=== PATIENT | male | born 1960 | race Caucasian/White ===

== ENCOUNTER → 2018-05-11 | Outpatient (CLI) | payer OTHER | LOC: COL.RAD 14:27 | DX: I73.9 Peripheral vascular disease, unspecified (principal); S62.632G Displaced fracture of distal phalanx of right middle finger, subsequent encounter for fracture with delayed healing ==

== ENCOUNTER 2018-08-23 09:45 | Outpatient (RCR) | payer OTHER | END 2018-10-24 10:28 | disposition home or self-care (01) | LOC: WSOT 09:45 | DX: Z47.89 Encounter for other orthopedic aftercare (principal); Z98.890 Other specified postprocedural states ==

== ENCOUNTER 2019-02-01 08:30 | Outpatient (RCR) | payer OTHER | END 2019-02-03 | disposition home or self-care (01) | LOC: WSOT | DX: Z09 Encounter for follow-up examination after completed treatment for conditions other than malignant neoplasm (principal); M79.644 Pain in right finger(s); Z98.890 Other specified postprocedural states ==

== ENCOUNTER 2019-04-04 00:16 | Inpatient (IN) | payer OTHER ==
[~2019-04-04] VITALS: Ht 182.9 cm; Wt 95.9 kg
[2019-04-04] VITALS (928 sets, daily range): BP systolic 99–195; BP diastolic 48–95; PULSE 86–120; TEMP 98.5–102.9; O2SAT 84–100
[2019-04-04] MEDS ORDERED: TRESIBA FL100 UNIT/1 SQ (00:45)
[2019-04-04] MEDS ORDERED: PRINIVIL10 MG PO (00:53)
[2019-04-04] MEDS ORDERED: LIPITOR 40MG TA40 MG (00:54)
[2019-04-04 01:07] LABS: HEMOGLOBIN 12.2 g/dl (13.5-18.0); MEAN CELL VOLUME 86 fl (80.0-100.0); MEAN CORPUSCULAR HEMOGLOBIN 30 pg (27.0-31.0); MEAN CORPUSCULAR HGB CONC 35 g/dl (33.0-37.0); MEAN PLATELET VOLUME 9.1 fl (7.4-10.4); PLATELET COUNT 348 K/mm3 (130-400); REDCELL DISTRIBUTION WIDTH-CV 12.9 % (11.5-14.5)
[2019-04-04 01:08] LABS: HEMATOCRIT 35.3 % (42.0-52.0)
[2019-04-04 01:15] LABS: COLLECTION METHOD CLEAN CATCH
[2019-04-04 01:16] LABS: PROTHROMBIN TIME 11.6 SECONDS (9.7-12.8)
[2019-04-04 01:21] LABS: ACETONE,SERUM MODERATE; ALANINE AMINOTRANSFERASE 22 U/L (21-72); ALKALINE PHOSPHATASE 244 U/L (50-136); ANION GAP 19 mmol/L (7-16); AST,SGOT 34 U/L (15-37); BILIRUBIN,TOTAL 0.6 mg/dL (0.0-1.0); BLOOD UREA NITROGEN 43 mg/dL (9-20); CALCIUM 8.6 mg/dL (8.4-10.2); CARBON DIOXIDE 16 mmol/L (22-30); CREATININE, serum 1.37 (0.66-1.25); LIPASE 28 U/L (23-300); POTASSIUM 4.9 mmol/L (3.4-5.0); SODIUM 123 mmol/L (137-145); TOTAL PROTEIN 6.5 gm/dL (6.4-8.2)
[2019-04-04 01:23] LABS: MUCOUS Present /lpf; PH 5 (5-8); SQUAMOUS EPITHELIAL None Seen /hpf; URINE APPEARANCE Hazy; URINE BACTERIA None Seen /hpf; URINE BILIRUBIN Negative (NEGATIVE); URINE BLOOD 2+ (NEGATIVE); URINE COLOR Yellow; URINE GLUCOSE 3+ (NEGATIVE); URINE KETONE 2+ (NEGATIVE); URINE LEUKOCYTE ESTERASE Negative (NEGATIVE); URINE NITRATE Negative (NEGATIVE); URINE PROTEIN(semi-quant) 1+ (NEGATIVE); URINE UROBILINOGEN Negative (NEGATIVE)
[2019-04-04 01:28] LABS: ARTERIAL BLD GAS TCO2 CT 15.9; ARTERIAL BLOOD GAS HCO3 15.2 meq/L (22-26); ARTERIAL BLOOD GAS PCO2 25.4 mmHg (35-45); ARTERIAL BLOOD GAS PO2 57.6 mmHg (80-100); ARTERIAL BLOOD GAS pH 7.39 (7.35-7.45)
[2019-04-04 01:32] LABS: CHLORIDE 88 mmol/L (98-107); GLUCOSE 524 mg/dL (74-106); TROPONIN-I < 0.012 ng/mL (0.000-0.035)
[2019-04-04 01:57] LABS: BAND 25 % (0-10); LYMPHOCYTE 4 % (20.0-51.0); METAMYELOCYTE 4 % (0-0); NEUTROPHILS 63 % (42.0-75.2)
[2019-04-04 01:58] LABS: PLATELET ESTIMATE NORMAL (NORMAL)
[2019-04-04 02:52] LABS: C-REACTIVE PROTEIN 48.7 mg/dL (0.0-0.9)
--- NOTE | 2019-04-04 03:20 | NUR ---
Patient arrived on unit via ER bed, transported to unit bed with help of this RN plus 3 other RN's. Patient accompanied by 2 family members. Patient attached to CRM monitor, IV rates checked with ER nurse.
[2019-04-04 03:43] LABS: MAGNESIUM 2.4 mg/dL (1.6-2.3)
[2019-04-04 03:48] LABS: ACETAMINOPHEN < 10 ug/mL (10-30); SALICYLATE < 1.0 mg/dL
--- NOTE | 2019-04-04 08:20 | NUR ---
Report received from Dalila KHAN and care resumed. Pt resting upon assessment. Linens were wet from urine, pt cleaned up and linens changed. IV insulin remains infusing, see IV flowsheet. Family at bedside and update on pt condition. No concerns at this time, will continue to follow.
[2019-04-04 08:22] LABS: CREATININE, serum 1.04 (0.66-1.25); POTASSIUM 4.1 mmol/L (3.4-5.0)
--- NOTE | 2019-04-04 08:32 | NUR ---
Vancomycin Initial Dosing Pharmacy Note Ordering provider: Sajan Hall MD Indication/duration: CELLULITIS Relevant comorbidities: DKA/UNCONTROLLED DM LABS: SCR 1.04/WBC19.8/LA 2.6 Recommendation: 1.5GM Q12H Loading dose: 1.5 grams Maintenance dose: 1.5 grams every 12 hours Trough goal: 10-15 ug/mL
--- NOTE | 2019-04-04 10:30 | NUR ---
Dr Hall in to see pt at this time.
--- NOTE | 2019-04-04 11:13 | NUR ---
VANESSA brooks attended clinical rounds with the team. Ortho consulted and speech ordered. After rounds VANESSA brooks met with the patient and his daugther and granddaughter. The patient lives in [place] with his son Zion. The patient does not have DME and reports independenc with ADLs. The patient's PCP is Dr. Herrera and patient receives medications from [facility] pharmacy. The patient reports he get his insulin for free from Dr. Herrera. The patient does not have advanced directives in the EMR but was interested in a DPOA-HC form. VANESSA brooks and director case witnessed. The patient designated his daugther, Jennifer and son his Zion. hr shared services consultant will continue to follow.
--- NOTE | 2019-04-04 11:58 | NUR ---
Ortho in to see pt at this time.
--- NOTE | 2019-04-04 12:33 | NUR ---
INSULIN DC'D PER ORDERS
--- NOTE | 2019-04-04 13:10 | NUR ---
Dr Hall was notified on increased temp. States will place pt on sepsis protocol and order PICC line. AIVS called. Ortho also called nurse stating pt would need to go to OR for right middle finger amputation. Consent to be obtained. Will update pt and family.
[2019-04-04 14:10] LABS: ARTERIAL BLD GAS O2 SATURATION 86.1 % (92-100); ARTERIAL BLD GAS TCO2 CT 21.8; ARTERIAL BLOOD GAS BASE EXCESS -1.6 (-2-2); ARTERIAL BLOOD GAS HCO3 20.9 meq/L (22-26); ARTERIAL BLOOD GAS PCO2 28.8 mmHg (35-45); ARTERIAL BLOOD GAS pH 7.48 (7.35-7.45)
--- NOTE | 2019-04-04 14:10 | NUR ---
Dr Anderson in to see pt at this time.
[2019-04-04 14:11] LABS: ARTERIAL BLOOD GAS PO2 45.8 mmHg (80-100)
[2019-04-04 14:22] LABS: SALICYLATE < 1.0 mg/dL
[2019-04-04 14:23] LABS: INR 1.1 (0.8-3.0); PROTHROMBIN TIME 12.4 SECONDS (9.7-12.8)
[2019-04-04 14:37] LABS: TROPONIN-I 0.116 ng/mL (0.000-0.035)
--- NOTE | 2019-04-04 14:37 | NUR ---
Pt to OR at this time.
--- NOTE | 2019-04-04 15:56 | NUR ---
Pt returned from OR on vent. All vent/restraint orders had been dc'd by ortho. Page placed to ortho for order clarification. Will continue to follow.
--- NOTE | 2019-04-04 16:10 | NUR ---
Patient is intubated, sedated, and has OG tube in place.
--- NOTE | 2019-04-04 16:45 | NUR ---
OG TUBE IN PLACE TO LOW INTERMITTENT SUCTION.
--- NOTE | 2019-04-04 17:00 | NUR ---
No sedation vacation, patient newly intubated this afternoon.
--- NOTE | 2019-04-04 17:30 | NUR ---
Report given to BILL Cisneros.
--- NOTE | 2019-04-04 17:40 | NUR ---
At bedside with off-going nurse. Pumps and tubing and drips verified with nurse. VS stable; will continue to monitor.
--- NOTE | 2019-04-04 20:59 | NUR ---
Updated family via telephone. All questions and concerns addressed.
--- NOTE | 2019-04-04 22:01 | NUR ---
Notified [facility] about positive blood cultures; currenlty on Vancomycin and zosyn.
[2019-04-05] VITALS (1169 sets, daily range): BP systolic 92–127; BP diastolic 52–77; PULSE 85–98; TEMP 98.5–99.2; O2SAT 89–100
[2019-04-05 00:23] LABS: ARTERIAL BLD GAS O2 SATURATION 95.7 % (92-100); ARTERIAL BLD GAS TCO2 CT 20.1; ARTERIAL BLOOD GAS BASE EXCESS -4.2 (-2-2); ARTERIAL BLOOD GAS HCO3 19.2 meq/L (22-26); ARTERIAL BLOOD GAS PCO2 29.7 mmHg (35-45); ARTERIAL BLOOD GAS PO2 75.3 mmHg (80-100); ARTERIAL BLOOD GAS pH 7.43 (7.35-7.45)
--- NOTE | 2019-04-05 02:32 | NUR ---
Tolerating ventilator well; opened eyes slightly on command but not following other commands at this time. Also responds to painful stimuli and suctioning. Will continue to monitor.
[2019-04-05 05:51] LABS: MEAN CELL VOLUME 90 fl (80.0-100.0); MEAN CORPUSCULAR HGB CONC 33 g/dl (33.0-37.0); MEAN PLATELET VOLUME 9.2 fl (7.4-10.4); PLATELET COUNT 258 K/mm3 (130-400); RED BLOOD COUNT 3.34 M/mm3 (4.20-5.60); REDCELL DISTRIBUTION WIDTH-CV 13.7 % (11.5-14.5)
[2019-04-05 05:55] LABS: ARTERIAL BLD GAS O2 SATURATION 92.5 % (92-100); ARTERIAL BLD GAS TCO2 CT 19.1; ARTERIAL BLOOD GAS HCO3 18.3 meq/L (22-26); ARTERIAL BLOOD GAS PO2 59.9 mmHg (80-100); ARTERIAL BLOOD GAS pH 7.43 (7.35-7.45)
--- NOTE | 2019-04-05 05:56 | NUR ---
Received phone call from Dr. Ferrer reporting on results of chest CT; postitive for left upper lobe PE. Will notify [facility].
[2019-04-05 05:59] LABS: HEMATOCRIT 29.9 % (42.0-52.0); HEMOGLOBIN 9.9 g/dl (13.5-18.0); MEAN CORPUSCULAR HEMOGLOBIN 30 pg (27.0-31.0)
[2019-04-05 06:01] LABS: ALBUMIN 2.2 gm/dL (3.5-5.0); BILIRUBIN,TOTAL 0.5 mg/dL (0.0-1.0); CALCIUM 7.4 mg/dL (8.4-10.2); CREATININE, serum 1.21 (0.66-1.25); MAGNESIUM 2.4 mg/dL (1.6-2.3); POTASSIUM 3.8 mmol/L (3.4-5.0); TOTAL PROTEIN 5.5 gm/dL (6.4-8.2)
--- NOTE | 2019-04-05 06:05 | NUR ---
Updated Dr. Mendes via telephone; awaiting further orders.
[2019-04-05 06:15] LABS: INR 1.1 (0.8-3.0); PROTHROMBIN TIME 12.4 SECONDS (9.7-12.8)
[2019-04-05 06:20] LABS: TROPONIN-I 0.14 ng/mL (0.000-0.035)
[2019-04-05 06:25] LABS: BAND 35 % (0-10); LYMPHOCYTE 8 % (20.0-51.0); METAMYELOCYTE 3 % (0-0); NEUTROPHILS 51 % (42.0-75.2); PLATELET ESTIMATE NORMAL (NORMAL)
--- NOTE | 2019-04-05 07:00 | NUR ---
BEDSIDE REPORT RECEIVED FROM BILL ARZATE. PATIENT SEDATED BUT WAKES EASILY. ALL LINES, GTTS, TUBES AND VENT SETTINGS REVIEWED TOGETHER. WILL CONTINUE TO MONITOR.
[2019-04-05 07:52] LABS: GASTROCCULT POSITIVE
[2019-04-05 07:53] LABS: pH GASTRIC CONTENTS 4
[2019-04-05 09:15] LABS: HEMATOCRIT 26.2 % (42.0-52.0); HEMOGLOBIN 8.8 g/dl (13.5-18.0)
[2019-04-05 10:42] LABS: TROPONIN-I 0.105 ng/mL (0.000-0.035)
[2019-04-05 11:40] LABS: ARTERIAL BLD GAS TCO2 CT 20.8; ARTERIAL BLOOD GAS BASE EXCESS -3.7 (-2-2); ARTERIAL BLOOD GAS HCO3 19.9 meq/L (22-26); ARTERIAL BLOOD GAS PCO2 30.4 mmHg (35-45); ARTERIAL BLOOD GAS PO2 84.7 mmHg (80-100); ARTERIAL BLOOD GAS pH 7.43 (7.35-7.45)
--- NOTE | 2019-04-05 13:32 | NUR ---
DR. HOLT HERE TO SEE PATIENT AND PERFORM EGD AT BEDSIDE. PHONE CONSENT OBTAINED FROM SON, LUIS.
--- NOTE | 2019-04-05 16:25 | NUR ---
WE RETURN FROM [facility] STRESS TEST AT THIS TIME. PATIENT TOLERATED WELL. SON, LUIS UPDATED. QUESTIONS ANSWERED TO THE BEST OF MY ABILITY. WILL CONTINUE TO MONITOR.
--- NOTE | 2019-04-05 16:27 | NUR ---
1500 PT TRANSPORTED TO [facility] SCAN ON VENT WITHOUT INCIDENT. AT THIS TIME PT RETURNED BACK TO ICU ON VENT WITHOUT INCIDENT.
[2019-04-05 17:04] LABS: PARTIAL THROMBOPLASTIN TIME 26.8 SECONDS (26.0-37.0)
--- NOTE | 2019-04-05 19:00 | NUR ---
BEDSIDE REPORT GIVEN TO BILL AREVALO. PATIENT CURRENTLY SEDATED AND VENTILATED. ALL LINES, GTTS, TUBES AND VENT SETTINGS REVIEWED. PATIENT TURNED TO RIGHT SIDE. CARE TURNED OVER AT THIS TIME.
--- NOTE | 2019-04-05 23:40 | NUR ---
PER MAR PT IS TO HAVE LR HUNG NEXT BUT THERE IS CURRENTLY LR HANGING. WILL HANG NS NOW AND CONTINUE TO ALTERNATE LR AND NS
[2019-04-06] VITALS (1023 sets, daily range): BP systolic 115–170; BP diastolic 49–85; PULSE 84–107; TEMP 97.3–99.3; O2SAT 82–100
--- NOTE | 2019-04-06 05:11 | NUR ---
PT IS ALERT AND FOLLING COMMANDS. PT ASKING WHAT THE DATES IS. PT ATTEMPTING TO JOKE WITH NURSES AND THUMB WRESTLE. PT DENIES PAIN AND STATES HE IS COMFORTABLE. WILL LEAVE SEDATION AT NEW RATES UNLESS PT BECOMES RESTLESS OR COMPLAINS OF PAIN.
[2019-04-06 05:12] LABS: ARTERIAL BLD GAS O2 SATURATION 97.4 % (92-100); ARTERIAL BLD GAS TCO2 CT 22.1; ARTERIAL BLOOD GAS BASE EXCESS -2.6 (-2-2); ARTERIAL BLOOD GAS HCO3 21.1 meq/L (22-26); ARTERIAL BLOOD GAS PCO2 32.3 mmHg (35-45); ARTERIAL BLOOD GAS PO2 92.5 mmHg (80-100); ARTERIAL BLOOD GAS pH 7.43 (7.35-7.45)
--- NOTE | 2019-04-06 05:55 | NUR ---
WEANING TRIAL IS BEING DONE. PT IS ON SPONTANOUS MODE DOING WELL WITH NO DISTRESS NOTED.
[2019-04-06 06:33] LABS: BASO # 0.1 (0.0-0.2); BASO % 0.3 % (0.0-2.0); EOS % 0.1 % (0-4.0); GRAN # 14.9 (1.4-6.5); GRAN % 86.4 % (42.2-75.2); LYMPH # 0.7 (1.2-3.4); LYMPH % 4.3 % (20.0-51.0); MEAN CELL VOLUME 91 fl (80.0-100.0); MEAN CORPUSCULAR HGB CONC 32 g/dl (33.0-37.0); MEAN PLATELET VOLUME 9.3 fl (7.4-10.4); MONO # 1.2 (0.1-0.6); PLATELET COUNT 272 K/mm3 (130-400); RED BLOOD COUNT 3.24 M/mm3 (4.20-5.60); REDCELL DISTRIBUTION WIDTH-CV 14.2 % (11.5-14.5)
[2019-04-06 06:41] LABS: HEMATOCRIT 29.5 % (42.0-52.0); HEMOGLOBIN 9.3 g/dl (13.5-18.0); MEAN CORPUSCULAR HEMOGLOBIN 29 pg (27.0-31.0)
[2019-04-06 06:45] LABS: PROTHROMBIN TIME 12.1 SECONDS (9.7-12.8)
[2019-04-06 06:47] LABS: ALBUMIN 2.4 gm/dL (3.5-5.0); BILIRUBIN,TOTAL 0.7 mg/dL (0.0-1.0); CALCIUM 7.3 mg/dL (8.4-10.2); CREATININE, serum 1.18 (0.66-1.25); POTASSIUM 3.6 mmol/L (3.4-5.0)
--- NOTE | 2019-04-06 12:28 | NUR ---
Vancomycin Follow-up Pharmacy Note Current regimen: vancomycin 1500 q12H Vancomycin trough: 22.1 Adjustments: reduce to vancomycin 1250 q12H. Trough 04/08/19 @ 0030.
[2019-04-06 12:34] LABS: ARTERIAL BLD GAS O2 SATURATION 98.2 % (92-100); ARTERIAL BLD GAS TCO2 CT 22.5; ARTERIAL BLOOD GAS BASE EXCESS -2.3 (-2-2); ARTERIAL BLOOD GAS HCO3 21.5 meq/L (22-26); ARTERIAL BLOOD GAS PCO2 33.2 mmHg (35-45); ARTERIAL BLOOD GAS PO2 114.7 mmHg (80-100); ARTERIAL BLOOD GAS pH 7.43 (7.35-7.45)
--- NOTE | 2019-04-06 16:35 | NUR ---
PT EXTUBATED AT [address] MARTÍNEZ ORDER. PT SUCTIONED ORALLY AND VIA ETT PRIOR TO EXTUBATION. PT PLACED ON 5L OXYMASK AND SUCTIONED ORALLY POST EXTUBATION. PT BLBS CLEAR AND EQUAL. NO STRIDOR. PT IS ABLE TO SPEAK. VSS. HR 99, RR 18, SPO2 97%. PT CONTINUES TO DO WELL.
[2019-04-07] VITALS (574 sets, daily range): BP systolic 108–160; BP diastolic 66–91; PULSE 88–112; TEMP 98.1–100.1; O2SAT 85–99
--- NOTE | 2019-04-07 01:18 | NUR ---
Pt sleeping and scrunched down in bed. O2 sats showing 88% on 5L NC. Pt repositioned and boosted. No changed to breath sounds from previous assessment. Oxygen turned up to 6L. RT called for scheduled neb. Rt changed Pt over to high flow NC with humidity. Pt now sleeping and sating 94%. Will contiue to monitor.
[2019-04-07 06:24] LABS: MEAN CELL VOLUME 92 fl (80.0-100.0); MEAN CORPUSCULAR HGB CONC 32 g/dl (33.0-37.0); MEAN PLATELET VOLUME 9.5 fl (7.4-10.4); PLATELET COUNT 313 K/mm3 (130-400); RED BLOOD COUNT 3.28 M/mm3 (4.20-5.60); REDCELL DISTRIBUTION WIDTH-CV 14.1 % (11.5-14.5)
[2019-04-07 06:29] LABS: HEMATOCRIT 30.1 % (42.0-52.0); HEMOGLOBIN 9.5 g/dl (13.5-18.0); INR 1.1 (0.8-3.0); MEAN CORPUSCULAR HEMOGLOBIN 29 pg (27.0-31.0)
[2019-04-07 06:38] LABS: ALBUMIN 2.3 gm/dL (3.5-5.0); CALCIUM 7.1 mg/dL (8.4-10.2); CREATININE, serum 1.1 (0.66-1.25); POTASSIUM 3.9 mmol/L (3.4-5.0); TOTAL PROTEIN 6.1 gm/dL (6.4-8.2)
--- NOTE | 2019-04-07 16:55 | NUR ---
patient to room 351 Asa RN recieves report
--- NOTE | 2019-04-07 17:48 | NUR ---
Reyes catheter removed per order, catheter intact upon removal, Pt tolerated procedure well.
--- NOTE | 2019-04-07 19:12 | NUR ---
Pt up to floor this afternoon from ICU, med rec completed, heparin drip rate upon arriving was set to 19 ml/hr, MAR indicated and report received rate was set at 18 ml/hr, rate was reset to the rate indicated on AUG.
--- NOTE | 2019-04-07 19:25 | NUR ---
Report given to BILL Pereyra.
[2019-04-08 06:08] VITALS: BP 149/60; PULSE 91; TEMP 99.4
--- NOTE | 2019-04-08 07:00 | NUR ---
Received report from BILL Bray. Pt is currently receiving a breathing treatment from RT. Tele called to inform this RN pt had a run of Afib w/ RVR. Rt immediately did an EKG which shows NSR. Contacted Dr. Villarreal. Dr. Villarreal changed his breathing treatment from Albuterol to Xopenem. Pt had no more Afib through the night. Pt's R leg becoming increasingly hard to move. Pt is having shooting pains down the leg to his foot. Pt had 1 bout of bladder incontinence, changed bed and gown. Pt encouraged to call for help to use his urinal. Discussed replacing hamlin due to inability to move with Dior telephone clerks supervisor, will pass on information to Daytime nurse to discuss during rounds. Report given to BILL Harrell.
--- NOTE | 2019-04-08 07:33 | NUR ---
report from Hafsa KHAN.
[2019-04-08 07:45] VITALS: BP 145/63; PULSE 89; TEMP 98.8
[2019-04-08 08:07] LABS: MEAN CELL VOLUME 92 fl (80.0-100.0); MEAN CORPUSCULAR HGB CONC 31 g/dl (33.0-37.0); MEAN PLATELET VOLUME 9.5 fl (7.4-10.4); RED BLOOD COUNT 3.14 M/mm3 (4.20-5.60); REDCELL DISTRIBUTION WIDTH-CV 13.8 % (11.5-14.5)
[2019-04-08 08:17] LABS: HEMOGLOBIN 9.1 g/dl (13.5-18.0); MEAN CORPUSCULAR HEMOGLOBIN 29 pg (27.0-31.0); PLATELET COUNT 430 K/mm3 (130-400)
[2019-04-08 08:18] LABS: ALBUMIN 2.3 gm/dL (3.5-5.0); BILIRUBIN,TOTAL 0.8 mg/dL (0.0-1.0); CALCIUM 6.9 mg/dL (8.4-10.2); CREATININE, serum 1.13 (0.66-1.25); TOTAL PROTEIN 6.1 gm/dL (6.4-8.2)
[2019-04-08 08:30] LABS: BAND 9 % (0-10); EOSINOPHIL 2 % (0-4); LYMPHOCYTE 18 % (20.0-51.0); METAMYELOCYTE 1 % (0-0); NEUTROPHILS 69 % (42.0-75.2); PLATELET ESTIMATE NORMAL (NORMAL)
--- NOTE | 2019-04-08 09:50 | NUR ---
PT WAS BROUGHT DOWN TO [facility] ROOM 15 IN HIS BED. CHART WAS LEFT UPSTAIRS ON MEDICAL. VERBALLY MR FREGOSO WAS ASKED WHAT PROCEDURE HE WAS GOING TO HAVE, HE STATES HE WAS HAVING A LIANA. PT WAS ASKED BY MYSELF IF HE WANTED TO GO THROUGH THE PROCEDURE AND PT STATES YES. PRESENT WAS DR COONEY, LILLIAN MAXWELL, SOL RODRIGUEZ, ROWENA PELLETIER AND MYSELF. WE CONTINUED WITH THE PROCEDURE. WHEN THE CHART ARRIVED A FEW MINUTES LATER.
--- NOTE | 2019-04-08 10:45 | NUR ---
PT RETURNED FROM [facility]. REPORT FROM JUNIOR KHAN.
--- NOTE | 2019-04-08 11:22 | NUR ---
PT IN BED VISITING WITH FAMILY CORRECTED HEP XA RESULTS @ .36 WITH NO CHANGE NEEDED. RESULTS OF LIANA NEGATIVE BY REPORT FROM JUNIOR KHAN CATHLAB.
[2019-04-08 12:11] VITALS: BP 167/71; PULSE 100; TEMP 98
--- NOTE | 2019-04-08 13:39 | NUR ---
DANISH met with the patient and the patient's son, Zion, to review discharge plan. The patient reports that he still plans to return home with Zion upon discharge. The patient is requiring six liters of oxygen. DANISH to continue to monitor. The patient was also interested in obtaining a form for DPOA-HC and for it to be notarized. DANISH provided him with a DPOA-HC form and notified the Zeinab guardado. DANISH to continue to follow.
[2019-04-08 16:17] VITALS: BP 157/64; PULSE 98
[2019-04-08 20:00] VITALS: BP 141/61; PULSE 95; TEMP 95.4
--- NOTE | 2019-04-08 20:40 | NUR ---
Shift assessment complete. Pt resting in bed, awake, a&o, cooperative c cares. Pt continued c/o pain to RLE et R hand, PRN pain medical education specialist. Pt denies any other c/o. PICC noted to R upper arm, patent c good blood return. Pt denies further needs at this time. Call light in reach, bed alarm on. Will continue to monitor.
[2019-04-09] VITALS: BP 145/64; PULSE 102; TEMP 98.3
[2019-04-09 06:41] LABS: MEAN CELL VOLUME 91 fl (80.0-100.0); MEAN CORPUSCULAR HGB CONC 32 g/dl (33.0-37.0); MEAN PLATELET VOLUME 9.5 fl (7.4-10.4); PLATELET COUNT 479 K/mm3 (130-400); RED BLOOD COUNT 3.01 M/mm3 (4.20-5.60); REDCELL DISTRIBUTION WIDTH-CV 13.6 % (11.5-14.5)
[2019-04-09 06:52] LABS: INR 1.1 (0.8-3.0); PROTHROMBIN TIME 12.8 SECONDS (9.7-12.8)
--- NOTE | 2019-04-09 06:57 | NUR ---
awake resting in bed, bedside shift report received from BILL Aranda
[2019-04-09 06:59] LABS: HEMATOCRIT 27.5 % (42.0-52.0); HEMOGLOBIN 8.8 g/dl (13.5-18.0); MEAN CORPUSCULAR HEMOGLOBIN 29 pg (27.0-31.0)
[2019-04-09 07:07] LABS: CREATININE, serum 1.18 (0.66-1.25); POTASSIUM 4.4 mmol/L (3.4-5.0)
--- NOTE | 2019-04-09 08:00 | NUR ---
physical therapy in to work with patient, with 2 assist he was assited out of bed and up to bedside commode, had large bowel movement, was unable to stand to get back to bed and sit to stand lift used to get him back to bed, full assessment comopleted, see interventions for further info, left foot is red and swollen, patient states this is normal but will inform the DR, c/o pain wiht movement and will medicate with time appropriate, ice to right knee, dressing to right hand CD&I,
[2019-04-09 08:13] VITALS: BP 158/68; PULSE 84; TEMP 98.4
--- NOTE | 2019-04-09 08:40 | NUR ---
sitting up in bed eating breakfast, speech therapy in with patient
--- NOTE | 2019-04-09 09:56 | NUR ---
appears to be dozing, states relief from pain meds given earlier
--- NOTE | 2019-04-09 10:50 | NUR ---
awake and visiting with family, denies needs
[2019-04-09 12:30] VITALS: BP 156/73; PULSE 89; TEMP 98.4
--- NOTE | 2019-04-09 13:00 | NUR ---
resting quietly when nurse entered room, c/o pain to right knee and medicated with hydrocodone 7.5mg 2 tabs
--- NOTE | 2019-04-09 13:53 | NUR ---
DANISH met with the patient and the patient's son, Zion, to review discharge plan and to discuss PT's assessment of a 2 assist for transfer and needing post-acute rehab. The patient and his son were in agreeance to needing post-acute rehab. DANISH presented and explained the Patient Choice Form to the patient. The patient chose 1) [facility] 2) [facility]. Patient Choice Form signed by the patient and he was provided a copy. DANISH consulted IPR Director, Yessenia. DANISH attempted to contact Morenita at [facility]. DANISH left a voicemail and faxed over the referral. SW awaiting their screens.
--- NOTE | 2019-04-09 14:18 | NUR ---
Dr Banks and care team in to see patient
--- NOTE | 2019-04-09 15:54 | NUR ---
appears to be sleeping, eyes closed, resp quiet and easy,
[2019-04-09 17:00] VITALS: BP 157/65; PULSE 87; TEMP 99.2
--- NOTE | 2019-04-09 18:47 | NUR ---
bedside shift report given to BILL Aranda
--- NOTE | 2019-04-09 20:20 | NUR ---
Shift assessment complete. Pt resting in bed, awake, a&o, cooperative c cares. Pt reports continued pain to R hand et RLE, rated "8/10"; provided c PRN pain med. Pt denies any other c/o. PICC noted to R upper arm, patent c good blood return. R hand, finger amputation wrapped per ortho, dressing C/D/I, no complication to site. O2 per NC. Tele in place. Pt denies further needs. Call light in reach, bed alarm on. Will continue to monitor.
[2019-04-09 20:21] VITALS: BP 155/66; PULSE 101; TEMP 98.7
[2019-04-09 23:50] VITALS: BP 158/75; PULSE 82; TEMP 98.6
[2019-04-10 06:24] LABS: MEAN CELL VOLUME 92 fl (80.0-100.0); MEAN CORPUSCULAR HGB CONC 32 g/dl (33.0-37.0); MEAN PLATELET VOLUME 9.3 fl (7.4-10.4); PLATELET COUNT 563 K/mm3 (130-400); RED BLOOD COUNT 2.96 M/mm3 (4.20-5.60); REDCELL DISTRIBUTION WIDTH-CV 13.3 % (11.5-14.5)
[2019-04-10 06:30] LABS: HEMATOCRIT 27.2 % (42.0-52.0); HEMOGLOBIN 8.6 g/dl (13.5-18.0); MEAN CORPUSCULAR HEMOGLOBIN 29 pg (27.0-31.0)
[2019-04-10 06:40] LABS: CALCIUM 7.2 mg/dL (8.4-10.2); CREATININE, serum 1.06 (0.66-1.25); POTASSIUM 4.1 mmol/L (3.4-5.0)
[2019-04-10 07:03] LABS: BAND 16 % (0-10); EOSINOPHIL 3 % (0-4); LYMPHOCYTE 4 % (20.0-51.0); NEUTROPHILS 76 % (42.0-75.2); PLATELET ESTIMATE INCREASED (NORMAL)
[2019-04-10 07:08] VITALS: BP 184/78; PULSE 84; TEMP 98
[2019-04-10 07:10] VITALS: BP 184/78; PULSE 84; TEMP 98
--- NOTE | 2019-04-10 07:32 | NUR ---
HepXa level was 0.35 this morning/ No rate change made, continue TRA 19ml/hr, recheck next level 04/11/19
[2019-04-10 07:37] LABS: INR 1.1 (0.8-3.0); PROTHROMBIN TIME 12.9 SECONDS (9.7-12.8)
--- NOTE | 2019-04-10 11:00 | NUR ---
PICC intact right upper arm. With sterile technique right upper arm PICC dressing change done with insertion site cleansed with ChloraPrep 1, chlorhexidine impregnated disc applied, skin prep, StatLock, and Tegaderm applied. No signs or symptoms of IV complications noted. No concerns voiced. Wrapped with Reynold to protect catheter.
[2019-04-10 11:01] VITALS: BP 163/67; PULSE 88; TEMP 98.8
--- NOTE | 2019-04-10 11:21 | NUR ---
Assessment completed, alert/oriented, vital signs stabl/ HTN, reports some rib pain from coughing/ reports [place] has helped ease the discomfort, lungs are coarse in bases but good air movment overall, heart RRR/distal pulses are weak but palpable, heparin gtt continues at 19ml/hr following protocol, patient is very weak getting up and needing use of sit to aixa lift/ PT ordered for eval and tx, repeat BC came back + for staph again/ hospitalist notified
[2019-04-10 16:14] VITALS: BP 184/72; PULSE 111; TEMP 99.7
[2019-04-10 19:56] VITALS: BP 157/67; PULSE 99; TEMP 97.8
--- NOTE | 2019-04-10 21:20 | NUR ---
Patient assessed at this time. Alert and oriented x 4, and able to make needs known. Reported level 8 pain to right knee. Given PRN [place] as requested for pain, and given PRN Benadryl as requested to help him sleep. Double lumen PICC to Andre. Dressing to area is CDI. On oxygen at 6 L/min via oxymask. Denies having SOB and dyspnea. Does report occasional cough with sputum production. LS crackles throughout. Respirations even and unlabored. Telemetry in place. HRR. Normal sinus. Capillary refill less than 3 seconds. Non-tenting skin turgor. BSAx4. Abdomen soft and nontender. Dressing to right hand CDI. Dressing per ortho, who was in to see patient tonight. 2+ edema to BLE. Left foot is red and warm to touch. Voices no questions, needs, or concerns at this time. Resting in bed with call light within reach.
[2019-04-10 23:35] VITALS: BP 144/77; PULSE 94; TEMP 98.4
[2019-04-11 03:55] VITALS: BP 156/84; PULSE 65
[2019-04-11 06:01] LABS: BASO % 0.3 % (0.0-2.0); EOS # 0.1 (0.0-0.7); EOS % 0.8 % (0-4.0); GRAN # 12.5 (1.4-6.5); GRAN % 79.6 % (42.2-75.2); LYMPH # 1.6 (1.2-3.4); LYMPH % 10.4 % (20.0-51.0); MEAN CELL VOLUME 92 fl (80.0-100.0); MEAN CORPUSCULAR HGB CONC 31 g/dl (33.0-37.0); MEAN PLATELET VOLUME 8.9 fl (7.4-10.4); MONO # 1.2 (0.1-0.6); MONO % 7.6 % (1.7-9.3); RED BLOOD COUNT 3.03 M/mm3 (4.20-5.60); REDCELL DISTRIBUTION WIDTH-CV 13.3 % (11.5-14.5)
--- NOTE | 2019-04-11 06:01 | NUR ---
Patient has had no furhter complaints of pain or discomfort this shift. Dressing to right hand CDI. Continues to wear oxygen at 6 L/min via mask. Denies having SOB and dyspnea. Voices no questions, needs, or concerns at this time. Resting in bed with call light within reach.
[2019-04-11 06:04] LABS: HEMATOCRIT 27.8 % (42.0-52.0); HEMOGLOBIN 8.7 g/dl (13.5-18.0); MEAN CORPUSCULAR HEMOGLOBIN 29 pg (27.0-31.0)
[2019-04-11 06:05] LABS: PLATELET COUNT 676 K/mm3 (130-400)
[2019-04-11 06:07] LABS: INR 1.5 (0.8-3.0); PROTHROMBIN TIME 17.5 SECONDS (9.7-12.8)
[2019-04-11 06:11] LABS: CALCIUM 7.7 mg/dL (8.4-10.2); CREATININE, serum 0.99 (0.66-1.25); MAGNESIUM 1.9 mg/dL (1.6-2.3)
[2019-04-11 07:43] VITALS: BP 166/97; PULSE 91; TEMP 98.4
[2019-04-11 11:56] VITALS: BP 166/74; PULSE 89; TEMP 98.3
--- NOTE | 2019-04-11 12:01 | NUR ---
SW attended clinical rounds. The patient has bacteria in the blood and fluid build up in the lungs. The team will discuss a thoracentesis. Khadijah HENDERSON, reports the patient will tentatively be here through the weekend. DANISH updated IPR Director, Yessenia. Yessenia reports they are pending the patient's workmen's comp and the patient's progress. Morenita, at [facility], requests SW to keep her updated on whether [facility] is able to accept the patient or not, for them to review referral. SW to continue to follow.
[2019-04-11 15:41] VITALS: BP 158/66; PULSE 103; TEMP 97.6
[2019-04-11 19:23] VITALS: BP 163/69; PULSE 99; TEMP 98.5
--- NOTE | 2019-04-11 21:30 | NUR ---
Patient assessed at this time. Alert and oriented x4, and able to make needs known. Reported pain to right hand. Given PRN [place] as requsted for pain. Given PRN Benadryl for sleep as requested. Double lumen PICC to MANAV. Both lumens flushed and with blood return. Dressing to area is CDI. On oxygen at 5 L/min via oxymask. Denies having SOB and dyspnea. Respirations even and unlabored. HRR. Telemetry in place-normal sinus. Capillary refill less than 3 seconds. Non-tenting skin turgor. BSA x 4. Abdomen soft and non-tender. 2+ edema BLE. Edema to right hand. Splint to right hand CDI. Redness/warmth to left foot. Voices no questions, needs, or concerns at this time. Resting in bed with call light within reach.
[2019-04-11 23:19] VITALS: BP 136/77; PULSE 87
[2019-04-12 03:54] VITALS: BP 166/81; PULSE 97
[2019-04-12 06:01] LABS: BASO % 0.2 % (0.0-2.0); EOS # 0.1 (0.0-0.7); EOS % 0.9 % (0-4.0); GRAN # 10.2 (1.4-6.5); GRAN % 79.6 % (42.2-75.2); LYMPH # 1.2 (1.2-3.4); LYMPH % 9.4 % (20.0-51.0); MEAN CELL VOLUME 92 fl (80.0-100.0); MEAN CORPUSCULAR HGB CONC 32 g/dl (33.0-37.0); MEAN PLATELET VOLUME 8.7 fl (7.4-10.4); MONO # 1.1 (0.1-0.6); MONO % 8.6 % (1.7-9.3); PLATELET COUNT 685 K/mm3 (130-400); RED BLOOD COUNT 2.77 M/mm3 (4.20-5.60); REDCELL DISTRIBUTION WIDTH-CV 13.3 % (11.5-14.5)
[2019-04-12 06:05] LABS: HEMATOCRIT 25.4 % (42.0-52.0); HEMOGLOBIN 8.1 g/dl (13.5-18.0); MEAN CORPUSCULAR HEMOGLOBIN 29 pg (27.0-31.0)
[2019-04-12 06:06] LABS: INR 1.5 (0.8-3.0); PROTHROMBIN TIME 18.3 SECONDS (9.7-12.8)
--- NOTE | 2019-04-12 06:06 | NUR ---
Patient has not had any complaints of pain or discomfort. Has been resting in bed with eyes closed. Continues to wear oxygen at 5 L/min via oxymask. Denies SOB and dyspnea. Voices no questions, needs, or concerns at this time. Call light is within reach.
[2019-04-12 06:11] LABS: CALCIUM 7.6 mg/dL (8.4-10.2); CREATININE, serum 1.07 (0.66-1.25); MAGNESIUM 1.9 mg/dL (1.6-2.3); POTASSIUM 4.4 mmol/L (3.4-5.0)
[2019-04-12 08:04] VITALS: BP 167/82; PULSE 94; TEMP 98.1
--- NOTE | 2019-04-12 08:30 | NUR ---
Patient resting in bed at this time. Patient is alert and oriented x 3. Reports pain 7/10 in right lower leg and hand. [place] given for pain. Dressing to right hand remains CDI. Skin w/d. Color pale pink. Lungs dimninshed in LLL with fine crackles throughou all other lung roman. Patient reports cough with clear sputum. Denies any shortness of air. On 02 at 5L/oxy mask. HR strong/regular. Abd rounded with BS x 4 quads. PPP. Noted 2+ bilateral edema. Patient right foot slightly reddened; warm to touch and painful per patient report. Skin to heels dry, cracked without any reddness. Consent signed for Dr. Anderson to perform Thoracentsis this AM.
--- NOTE | 2019-04-12 09:23 | NUR ---
Dr. Anderson here to see patient. Thoracentsis performed on the right side. Approx 800 ml of clear yellow fluid removed. Patient tolerated well and stated he felt the heaviness on his chest has decreased
[2019-04-12 09:36] LABS: PLEURAL FLUID RBC 1000 /mm3 (0-0); PLEURAL FLUID WBC 1056 /mm3
[2019-04-12 09:45] LABS: GLUCOSE,PLEURAL FLUID 168 mg/dL
[2019-04-12 09:51] LABS: TOTAL PROTEIN,PLEURAL FLUID < 2.0 gm/dL
[2019-04-12 10:36] LABS: PLEURAL FLUID APPEARANCE HAZY; PLEURAL FLUID COLOR COLORLESS
--- NOTE | 2019-04-12 12:21 | NUR ---
Patient returned from Thoracentsis. Per report approx 600 ml removed from left lung. Patient denies any c/o's at this time
[2019-04-12 12:46] VITALS: BP 165/82; PULSE 102; TEMP 98
[2019-04-12 13:06] LABS: PLEURAL FLUID RBC 3000 /mm3 (0-0); PLEURAL FLUID WBC 2159 /mm3
[2019-04-12 13:12] LABS: GLUCOSE,PLEURAL FLUID 200 mg/dL; PLEURAL FLUID APPEARANCE HAZY; PLEURAL FLUID COLOR YELLOW; TOTAL PROTEIN,PLEURAL FLUID < 2.0 gm/dL
[2019-04-12 16:27] VITALS: BP 142/69; PULSE 104; TEMP 98.7
--- NOTE | 2019-04-12 17:48 | NUR ---
Repostioned patient in bed. Patient continues to have pain 11/12. Patient denies any needs at this time. Insulin given as per order for blood sugar 187. IV antibiotics infusing. Awaiting evening meal. Patient voided 700 cc of clear yellow.
[2019-04-12 19:14] VITALS: BP 164/70; PULSE 105; TEMP 98.1
[2019-04-12 23:20] VITALS: BP 154/75; PULSE 92; TEMP 98.1
[2019-04-13 05:01] VITALS: BP 160/74; PULSE 94; TEMP 99.1
[2019-04-13 06:05] LABS: BASO % 0.3 % (0.0-2.0); EOS # 0.1 (0.0-0.7); EOS % 0.8 % (0-4.0); GRAN # 9.3 (1.4-6.5); GRAN % 78.2 % (42.2-75.2); LYMPH # 1.3 (1.2-3.4); LYMPH % 10.5 % (20.0-51.0); MEAN CELL VOLUME 91 fl (80.0-100.0); MEAN CORPUSCULAR HGB CONC 32 g/dl (33.0-37.0); MEAN PLATELET VOLUME 8.5 fl (7.4-10.4); MONO # 1.1 (0.1-0.6); MONO % 8.8 % (1.7-9.3); PLATELET COUNT 639 K/mm3 (130-400); RED BLOOD COUNT 2.72 M/mm3 (4.20-5.60); REDCELL DISTRIBUTION WIDTH-CV 13.3 % (11.5-14.5)
[2019-04-13 06:13] LABS: INR 1.3 (0.8-3.0); PROTHROMBIN TIME 15.5 SECONDS (9.7-12.8)
[2019-04-13 06:14] LABS: HEMATOCRIT 24.8 % (42.0-52.0); HEMOGLOBIN 7.9 g/dl (13.5-18.0); MEAN CORPUSCULAR HEMOGLOBIN 29 pg (27.0-31.0)
[2019-04-13 06:19] LABS: CALCIUM 7.6 mg/dL (8.4-10.2); CREATININE, serum 0.93 (0.66-1.25); POTASSIUM 4.4 mmol/L (3.4-5.0)
[2019-04-13 07:40] VITALS: BP 161/73; PULSE 100; TEMP 99.1
--- NOTE | 2019-04-13 08:14 | NUR ---
Pt had an uneventful night. Did request Mcgrath 2 tabs at HS for discomfort in bilat LE and right hand. PICC line intact in upper right arm. Family in to visit. Teds on bilat. Purple line would not flush but red line flushed fine. Tele with NSR with HR tachy at 96. Has few exp. wheezes. O2 on per oxy mask at 5L/NC. Call light in reach.
--- NOTE | 2019-04-13 08:40 | NUR ---
Patient is awake and alert in his bed. Oxy mask is in place, was reported that patient wears it for his comfort. Dressing to right hand changed by ortho, is clean, dry and intact. Patient states he is having pain 8/10, was administered PRN pain medicaiton. Did manipulate personal items with the right hand. Breakfast arrived and was set up for patient, no other needs identified.
--- NOTE | 2019-04-13 12:00 | NUR ---
Received report from Nerissa at this time. Pt resting in bed, denies needs, will continue to moniotor.
[2019-04-13 12:31] VITALS: BP 147/75; PULSE 94; TEMP 98.5
[2019-04-13 17:46] VITALS: BP 149/74; PULSE 94; TEMP 99.3
--- NOTE | 2019-04-13 18:38 | NUR ---
Pt doing well, resting in bed, PRN pain meds given per request, denies needs, will give bedside shift report to [facility] nurse who will resume care.
[2019-04-13 19:43] VITALS: BP 162/79; PULSE 90; TEMP 97.5
--- NOTE | 2019-04-13 20:45 | NUR ---
Patient assessed at this time. Alert and oriented, and able to make needs known. Reported level 8 pain to right knee and hand. Given PRN [place] as requested. Double lumen PICC to ALFREDO. Dressing CDI. Site is without redness, warmth, swelling, and pain. On oxygen at 5 L/min via NC. Denies SOB and dyspnea. Respirations even and unlabored. LS CTA in upper lobes, diminished in lower. HRR. Telemetr in place-NS. Capillary refill less than 3 seconds. Non-tenting skin turgor. Dressing to right hand CDI per ortho. BSAx4. Abdomen soft and non-tender. 1+ edema BLE. VALERI hose in place. Voices no questions, needs, or concerns at this time. Resting in bed with call light within reach.
[2019-04-13 23:30] VITALS: BP 149/80; PULSE 89; TEMP 98.9
[2019-04-14 04:04] VITALS: BP 159/86; PULSE 90; TEMP 98.6
--- NOTE | 2019-04-14 05:57 | NUR ---
Patient complained of level 8 pain to right knee and hand. Given PRN [place]. Voices no other questions, needs, or concerns at this time. Resting in bed watching TV at this time. Call light is within reach.
[2019-04-14 06:10] LABS: BASO % 0.4 % (0.0-2.0); EOS # 0.2 (0.0-0.7); EOS % 1.5 % (0-4.0); GRAN # 7.1 (1.4-6.5); GRAN % 71.7 % (42.2-75.2); LYMPH # 1.6 (1.2-3.4); LYMPH % 15.7 % (20.0-51.0); MEAN CELL VOLUME 92 fl (80.0-100.0); MEAN CORPUSCULAR HGB CONC 31 g/dl (33.0-37.0); MEAN PLATELET VOLUME 8.5 fl (7.4-10.4); MONO # 0.9 (0.1-0.6); MONO % 9.2 % (1.7-9.3); PLATELET COUNT 655 K/mm3 (130-400); RED BLOOD COUNT 2.87 M/mm3 (4.20-5.60); REDCELL DISTRIBUTION WIDTH-CV 13.2 % (11.5-14.5)
[2019-04-14 06:19] LABS: HEMATOCRIT 26.5 % (42.0-52.0); HEMOGLOBIN 8.2 g/dl (13.5-18.0); MEAN CORPUSCULAR HEMOGLOBIN 29 pg (27.0-31.0)
[2019-04-14 06:23] LABS: CREATININE, serum 0.96 (0.66-1.25); POTASSIUM 4.3 mmol/L (3.4-5.0)
--- NOTE | 2019-04-14 07:00 | NUR ---
Bedside shift report received from Sherri, NR. PT in bed resting, denies needs, will contineu to lucero.
[2019-04-14 08:26] VITALS: BP 164/86; PULSE 72; TEMP 97.8
--- NOTE | 2019-04-14 10:45 | NUR ---
Assessment charted. Pt doing well, PRn pain meds help with knee, foot and hand pain. PICC to MANAV only Red port working. Pt does not have much motivation to get up moving. R hand dressing is CDI. Mateo needs, will contineu jac onitor.
[2019-04-14 12:48] VITALS: BP 176/80; PULSE 105; TEMP 98.6
[2019-04-14 16:00] VITALS: BP 187/84; PULSE 101; TEMP 97.8
[2019-04-14 19:10] VITALS: BP 146/69; PULSE 102; TEMP 97.5
--- NOTE | 2019-04-14 20:30 | NUR ---
Shift assessment complete. Pt resting in bed, awake, a&o, cooperative c cares. Pt continued c/o pain to L ankle, R knee et R hand; will give PRN pain med when available per pt req. Pt denies other c/o. PICC noted to R upper arm, patent through purple port c good blood return; red port obstructed et AIVS aware. O2 per NC. Pt denies further needs. Call light in reach, bed alarm on. Will continue to monitor.
[2019-04-15] VITALS (7 sets, daily range): BP systolic 152–181; BP diastolic 62–80; PULSE 70–98; TEMP 97.5–98.5
[2019-04-15 06:00] LABS: BASO % 0.4 % (0.0-2.0); EOS # 0.2 (0.0-0.7); EOS % 1.9 % (0-4.0); GRAN # 6.7 (1.4-6.5); GRAN % 69.5 % (42.2-75.2); LYMPH # 1.7 (1.2-3.4); LYMPH % 17.3 % (20.0-51.0); MEAN CELL VOLUME 91 fl (80.0-100.0); MEAN CORPUSCULAR HGB CONC 32 g/dl (33.0-37.0); MEAN PLATELET VOLUME 8.2 fl (7.4-10.4); MONO # 0.9 (0.1-0.6); MONO % 9.5 % (1.7-9.3); PLATELET COUNT 657 K/mm3 (130-400); RED BLOOD COUNT 2.74 M/mm3 (4.20-5.60); REDCELL DISTRIBUTION WIDTH-CV 13.4 % (11.5-14.5)
--- NOTE | 2019-04-15 06:17 | NUR ---
Warfarin Initial Dosing Pharmacy Note Ordering Provider: Jocelyn Indication: VTE/PE Treatment LABS: INR 1.3 Recommendation: 10 mg Warfarin x 1 dose, then 7 mg daily thereafter, daily PT/INR
[2019-04-15 06:21] LABS: CALCIUM 7.9 mg/dL (8.4-10.2); CREATININE, serum 1.07 (0.66-1.25); POTASSIUM 4.3 mmol/L (3.4-5.0)
[2019-04-15 06:25] LABS: HEMATOCRIT 24.9 % (42.0-52.0); HEMOGLOBIN 7.9 g/dl (13.5-18.0); MEAN CORPUSCULAR HEMOGLOBIN 29 pg (27.0-31.0)
[2019-04-15 08:13] LABS: INR 1.1 (0.8-3.0); PROTHROMBIN TIME 13.2 SECONDS (9.7-12.8)
--- NOTE | 2019-04-15 09:27 | NUR ---
Pack Press Operator attended clinical rounds with the team. Hospitalist discussed need for patient to work with therapy and post acute rehab upon discharge. SW to continue to follow.
--- NOTE | 2019-04-15 10:00 | NUR ---
Pt awake and alert upon entry, some C/O pain in right hand, shift assessment complete, left Pt call light in reach, bed in lowest position.
--- NOTE | 2019-04-15 18:11 | NUR ---
Pt rested in the room today, some C/o pain in his right hand today, medications were given for relief, VS have remained stable.
--- NOTE | 2019-04-15 18:51 | NUR ---
Report given to BILL Aranda.
--- NOTE | 2019-04-15 19:50 | NUR ---
Shift assessment complete. Pt resting in bed, awake, a&o, cooperative c cares. Pt c/o continued pain to R hand et knee, rated "7/10" at this time, PRN pain medical assistant dermatology per pt req. Pt denies any other c/o. PICC noted to R upper arm, patent c good blood return from both ports. O2 per NC. Tele in place. Pt denies further needs. Call light in reach, will monitor.
[2019-04-16 07:15] VITALS: BP 173/79; PULSE 90; TEMP 98.1
[2019-04-16 08:26] LABS: BASO % 0.3 % (0.0-2.0); EOS # 0.1 (0.0-0.7); EOS % 1.5 % (0-4.0); GRAN # 6.1 (1.4-6.5); GRAN % 69.4 % (42.2-75.2); LYMPH # 1.6 (1.2-3.4); LYMPH % 18.4 % (20.0-51.0); MEAN CELL VOLUME 91 fl (80.0-100.0); MEAN CORPUSCULAR HGB CONC 32 g/dl (33.0-37.0); MONO # 0.8 (0.1-0.6); PLATELET COUNT 629 K/mm3 (130-400); RED BLOOD COUNT 2.76 M/mm3 (4.20-5.60); REDCELL DISTRIBUTION WIDTH-CV 13.2 % (11.5-14.5)
[2019-04-16 08:27] LABS: INR 1.5 (0.8-3.0); PROTHROMBIN TIME 17.5 SECONDS (9.7-12.8)
[2019-04-16 08:33] LABS: HEMATOCRIT 25.1 % (42.0-52.0); HEMOGLOBIN 7.9 g/dl (13.5-18.0); MEAN CORPUSCULAR HEMOGLOBIN 29 pg (27.0-31.0)
[2019-04-16 08:36] LABS: CALCIUM 8.1 mg/dL (8.4-10.2); CREATININE, serum 0.95 (0.66-1.25); POTASSIUM 4.2 mmol/L (3.4-5.0)
--- NOTE | 2019-04-16 08:45 | NUR ---
Pt awake and alert this morning, has C/O pain in right knee, shift assessments completed, left Pt call light in reach, bed in lowest position.
[2019-04-16 09:00] VITALS: BP 183/84; PULSE 91
[2019-04-16 11:05] VITALS: BP 165/63; PULSE 101; TEMP 99.4
[2019-04-16 15:13] VITALS: BP 173/78; PULSE 89; TEMP 99.4
--- NOTE | 2019-04-16 15:36 | NUR ---
Tempering Machine Operator met with patient briefly to review discharge plan. Patient states he is not able to bear weight on his knee at this point. DANISH spoke with Yessenia, IPR Director who is still reviewing referral. DANISH faxed updates to [facility]. SW to continue to follow.
--- NOTE | 2019-04-16 18:22 | NUR ---
Pt rested in room today, was up in the recliner for several hours, Vs have remained stable.
[2019-04-16 19:44] VITALS: BP 168/67; PULSE 107; TEMP 98.9
--- NOTE | 2019-04-16 20:30 | NUR ---
Shift assessment complete. Pt resting in bed, awake, a&o, cooperative c cares. Pt continued c/o R hand et R knee pain, will give PRN pain med c HS meds per pt req. Pt denies any other c/o. PICC noted to R upper arm, patent c good blood return from both ports. Tele in place. O2 per NC. Pt denies further needs at this time. Call light in reach, bed alarm on. Will continue to monitor.
[2019-04-16 23:40] VITALS: BP 163/69; PULSE 94; TEMP 97.5
[2019-04-17] VITALS (11 sets, daily range): BP systolic 127–167; BP diastolic 51–75; PULSE 90–102; TEMP 98.1–99.3
[2019-04-17 06:20] LABS: BASO % 0.4 % (0.0-2.0); EOS # 0.1 (0.0-0.7); EOS % 1.4 % (0-4.0); GRAN # 5.8 (1.4-6.5); GRAN % 69.7 % (42.2-75.2); LYMPH # 1.4 (1.2-3.4); MEAN CELL VOLUME 90 fl (80.0-100.0); MEAN CORPUSCULAR HGB CONC 31 g/dl (33.0-37.0); MEAN PLATELET VOLUME 8.1 fl (7.4-10.4); MONO # 0.9 (0.1-0.6); MONO % 10.1 % (1.7-9.3); PLATELET COUNT 541 K/mm3 (130-400); RED BLOOD COUNT 2.34 M/mm3 (4.20-5.60); REDCELL DISTRIBUTION WIDTH-CV 13.2 % (11.5-14.5)
[2019-04-17 06:22] LABS: INR 2.1 (0.8-3.0); PROTHROMBIN TIME 24.6 SECONDS (9.7-12.8)
[2019-04-17 06:32] LABS: CALCIUM 7.6 mg/dL (8.4-10.2); CREATININE, serum 1.13 (0.66-1.25); POTASSIUM 4.2 mmol/L (3.4-5.0)
[2019-04-17 06:34] LABS: HEMOGLOBIN 6.6 g/dl (13.5-18.0); MEAN CORPUSCULAR HEMOGLOBIN 28 pg (27.0-31.0)
--- NOTE | 2019-04-17 09:00 | NUR ---
Assessment complete. Pt resting in bed, A&O x 4, reports pain in right knee 9 out of 10 on pain scale, edema noted to area. PICC line to right upper arm without s/s of infiltration or phlebitis, red port with no blood return, Catherine notified. New wound from sloughing skin to left top of foot, no drainage. Dressing to right hand CDI. No further needs reported. Call light in reach.
--- NOTE | 2019-04-17 09:15 | NUR ---
PICC intact right upper arm. With sterile technique right upper arm PICC dressing change done with insertion site cleansed with ChloraPrep 1, chlorhexidine impregnated disc applied, skin prep, StatLock, and Tegaderm applied. No signs or symptoms of IV complications noted. No concerns voiced. Arm wrapped with Reynold to protect catheter.
--- NOTE | 2019-04-17 09:48 | NUR ---
Warfarin Follow-up Pharmacy Note Current regimen: 7 mg po qhs LABS: INR of 2.1, up from 1.5 yesterday Changes in therapy: Decrease dose to 4 mg po daily
--- NOTE | 2019-04-17 10:25 | NUR ---
Hospitalist recommending an LTAC. DANISH presented the medicare.gov list of LTAC providers to the patient. The [facility] first choice is [facility] [place] and second [facility] [place]. The patient choice form is in the patient's chart. SW to fax referrals.
--- NOTE | 2019-04-17 10:31 | NUR ---
Cathflo instilled into red port of right upper arm PICC line per orders, very difficult to push. Will attempt blood return in 30 minutes.
--- NOTE | 2019-04-17 10:54 | NUR ---
Attempted to get blood return from red port of PICC line 30 minutes after cathflo instilled. No blood return, and flushing very difficult. Second dose of cathflo instilled.
--- NOTE | 2019-04-17 12:40 | NUR ---
Pt reports pain to right knee remains 9 out of 10, requests medication which is administered per orders. 1.5 hour after second dose of cathflo instilled, positive blood return from red port of PICC line. 10 ml blood wasted and line flushed with 20 ml NS.
--- NOTE | 2019-04-17 13:43 | NUR ---
David reports [facility] in [facility] can accept clinically. However, [facility] has to get authorization from the [employer], the workers compensation company. consulting services associate will continue to follow. Claim # [id number] Dinkey Mechanic, Lubna Vizcaino Test Tech, Michelle .
--- NOTE | 2019-04-17 15:02 | NUR ---
David from [facility] contacted and reports that the workers compensation company will NOT authorize a stay at [facility]. He reports they will not be covering this hospitalization either. oil well services supervisor will continue to follow.
--- NOTE | 2019-04-17 20:00 | NUR ---
Assessment complete. Pt awake in bed watching TV. Denies nausea, headache, SOB. C/O sharp/shooting pain to right knee that radiates down to ankle, rate 8/10; throbbing pain to left foot, rate 5/10; throbbing pain to right middle amputated finger/hand, rate 5/10. PRN [place] administered. Medications administered as ordered. PICC to Rt upper arm patent, dressing CDI. Surgical dressing in place to right hand. Call light within reach.
[2019-04-17 22:13] LABS: HEMATOCRIT 21.8 % (42.0-52.0); HEMOGLOBIN 7.1 g/dl (13.5-18.0)
[2019-04-18] VITALS (7 sets, daily range): BP systolic 122–158; BP diastolic 68–81; PULSE 87–116; TEMP 97.9–99.5
--- NOTE | 2019-04-18 06:00 | NUR ---
Dr. Hernandes in to see patient. Planning on aspirating fluid from right knee this afternoon.
[2019-04-18 06:18] LABS: MEAN CELL VOLUME 89 fl (80.0-100.0); MEAN CORPUSCULAR HGB CONC 33 g/dl (33.0-37.0); MEAN PLATELET VOLUME 8.1 fl (7.4-10.4); PLATELET COUNT 502 K/mm3 (130-400); RED BLOOD COUNT 2.46 M/mm3 (4.20-5.60); REDCELL DISTRIBUTION WIDTH-CV 13.4 % (11.5-14.5)
[2019-04-18 06:22] LABS: INR 2.1 (0.8-3.0); PROTHROMBIN TIME 25.6 SECONDS (9.7-12.8)
[2019-04-18 06:28] LABS: HEMATOCRIT 21.8 % (42.0-52.0); HEMOGLOBIN 7.1 g/dl (13.5-18.0); MEAN CORPUSCULAR HEMOGLOBIN 29 pg (27.0-31.0)
[2019-04-18 06:48] LABS: CREATININE, serum 1.18 (0.66-1.25); POTASSIUM 4.2 mmol/L (3.4-5.0)
[2019-04-18 07:48] LABS: BAND 6 % (0-10); EOSINOPHIL 1 % (0-4); LYMPHOCYTE 8 % (20.0-51.0); NEUTROPHILS 80 % (42.0-75.2); PLATELET ESTIMATE INCREASED (NORMAL)
--- NOTE | 2019-04-18 07:50 | NUR ---
Received report from primary RN Michelle. Pt is laying in bed awake. Complains of pain in rt knee. no other complaints at this time. IS encouraged. call light within reach. will continue to monitor.
--- NOTE | 2019-04-18 08:56 | NUR ---
Charu student nurse will be assisting primary nurse Michelle with patient care between [id number].
--- NOTE | 2019-04-18 11:52 | NUR ---
Warfarin Follow-up Pharmacy Note Current regimen: 4 MG PO QHS LABS: 2.1 INR 04/18/19 Changes in therapy: increase to 6 mg po daily
--- NOTE | 2019-04-18 13:10 | NUR ---
Called Lubna stock at [facility] to discuss pt's case. Per Lubna-"We are going to deny this hospital stay-we are paying nothing for this hospitalization." Informed [facility] we had a claim number for the stay and that they had been notified of pt admission. Pt now needing placement and was denied transfer to [facility] due to their standing of not authorizing stay. I reminded [facility] that we had no formal paperwork via fax/mail that this stay had been denied and therefore remained under their claim number. I then called Karin-Professor Of French at [facility] and left the message that the patient will remain in house and not be placed until we have formal notification that they will not be authorizing hospital stay/discharge. If we obtain written verification of denial we will then pursue other discharge planning. Lubna Gordoner-phone [phone]. Karin Professor Of French phone [phone].
--- NOTE | 2019-04-18 13:50 | NUR ---
Pt is sitting in chair at this time awake. has no complaints other than rt knee pain. pt has call light within reach. report given to primary RN Michelle.
--- NOTE | 2019-04-18 13:52 | NUR ---
Primary nruse was assisted with [id number] patient care by [employer] student Charu Rodrigues and [employer] instructor Piedad Hansen RN-.
--- NOTE | 2019-04-18 14:30 | NUR ---
Called Karin at [facility] after speaking with KEISHA in [place]-left message that we would be waiting for documentation of status authorization. Until then pt will be remain here due to denial to LTACH per [facility]. Received return phone call from Karin-she stated "I will not take anymore phone calls about this case. Don't call me anymore-call [facility]." When I tried to respond she hung up the phone.
--- NOTE | 2019-04-18 14:34 | NUR ---
Called Lubna Vizcaino-isauro kaur to inform her that it is necessary to have a written denial/authorization for hospital stay. Pt will remain here under their claim number until there is a resolution. Pt was denied LTACH placement per Aretha.
--- NOTE | 2019-04-18 15:11 | NUR ---
Received email from Lubna at [facility]-per email they are not approving hospital stay. Email copied to pt's chart.
[2019-04-18 16:03] LABS: SYNOVIAL FL. MONONUCLEAR 9.2 % (0-75); SYNOVIAL FLUID RBC 118000 /mm3 (0-0); SYNOVIAL FLUID WBC 105422 /mm3 (200-600)
[2019-04-18 16:05] LABS: SYNOVIAL FLUID APPEARANCE TURBID; SYNOVIAL FLUID COLOR YELLOW
--- NOTE | 2019-04-18 19:09 | NUR ---
Report with BILL Polanco. Pt sitting in bed, slight relief/change of knee pain to 7 out of 10, deep throbbing instead of sharp pain, s/p aspiration of synovial fluid. No further needs reported. Assessment and notes entered by student nurse reviewed and agreed by this nurse.
--- NOTE | 2019-04-18 20:00 | NUR ---
Assessment complete. Pt laying in bed with HOB at 30, family at bedside. C/O 9/10 shooting pain to Rt hand, 8.5/10 throbbing pain to Rt knee. PRN [place] administered. Rt knee/leg elevated with pillow placed under knee. PICC to MANAV patent, flushed, dressing CDI. Medications administered as ordered. Urinal at bedside. Personal items nearby. Needs met. Call light within reach.
[2019-04-19] VITALS (14 sets, daily range): BP systolic 135–165; BP diastolic 63–84; PULSE 84–102; TEMP 97.6–98.9
--- NOTE | 2019-04-19 05:37 | NUR ---
Pt states he was able to get better sleep this night. PRN [place] administered for 8/10 pain to right knee. Needs met. Call light within reach.
[2019-04-19 06:05] LABS: BASO % 0.3 % (0.0-2.0); EOS % 0.1 % (0-4.0); GRAN # 7.6 (1.4-6.5); LYMPH # 1.2 (1.2-3.4); LYMPH % 12.6 % (20.0-51.0); MEAN CELL VOLUME 89 fl (80.0-100.0); MEAN CORPUSCULAR HGB CONC 32 g/dl (33.0-37.0); MEAN PLATELET VOLUME 8.2 fl (7.4-10.4); MONO # 0.7 (0.1-0.6); MONO % 6.9 % (1.7-9.3); PLATELET COUNT 447 K/mm3 (130-400); RED BLOOD COUNT 2.35 M/mm3 (4.20-5.60); REDCELL DISTRIBUTION WIDTH-CV 13.3 % (11.5-14.5)
[2019-04-19 06:06] LABS: INR 2.1 (0.8-3.0); PROTHROMBIN TIME 24.9 SECONDS (9.7-12.8)
[2019-04-19 06:16] LABS: CALCIUM 8.1 mg/dL (8.4-10.2); CREATININE, serum 0.96 (0.66-1.25); POTASSIUM 4.8 mmol/L (3.4-5.0)
[2019-04-19 06:21] LABS: MEAN CORPUSCULAR HEMOGLOBIN 29 pg (27.0-31.0)
[2019-04-19 06:23] LABS: HEMOGLOBIN 6.8 g/dl (13.5-18.0)
--- NOTE | 2019-04-19 07:42 | NUR ---
Report given to BILL Multani.
--- NOTE | 2019-04-19 08:24 | NUR ---
RN Student assisting with cares from [phone] with the primary RN Nerissa.
--- NOTE | 2019-04-19 10:10 | NUR ---
Patient is awake and alert in the room, does have a visitor at bedside. Receiving 1 unit of PRBC at this time, initiated by nursing care attendant. Consent obtained for procedure to right knee today, he verbalizes understanding. Denies pain or any needs aside from being able to eat. He understands reasoning and jokes about it. Respirations are even and nonlabored. Call light and personal items are within reach.
--- NOTE | 2019-04-19 10:33 | NUR ---
Pt is laying in bed sleeping on and off. Pt has no complaints at this time. Encouraged pt to use IS and turn himself. Call light is within reach. will continue to monitor.
--- NOTE | 2019-04-19 13:53 | NUR ---
Primary nurse was assisted with [phone] patient care by [employer] student Charu Velazquez and [employer] instructor Piedad Hansen RN-.
--- NOTE | 2019-04-19 15:05 | NUR ---
Patient returned to room at this time. Is awake and alert in bed. Call light and pesonal items are within reach. No pain at this time.
--- NOTE | 2019-04-19 15:32 | NUR ---
mixed crop and livestock farm worker confirmed that [facility] is not accepting medicaid/disability pending referrals at this time. [facility] can only accept medicaid/disability [place] pending referrals.
--- NOTE | 2019-04-19 19:32 | NUR ---
Patient is resting in bed, facial expression relaxed. Call light and personal items are within reach.
--- NOTE | 2019-04-19 20:13 | NUR ---
SHIFT ASSESSMENT COMPLETE. MORPHINE 2MG GIVEN IV FOR R KNEE PAIN 7.5/10. A&O X4. PICC TO UPPER RIGHT ARM WITH DUAL LUMEN. RLE WITH GARCIA WRAP TO UPPER THIGH TO TOES. PULSE PRESENT. MOVES TOES WITH NO DIFFICULTY. O2 AT 2L/NC. CALL LIGHT IN REACH.
[2019-04-20 00:06] VITALS: BP 164/74; PULSE 93; TEMP 97.9
[2019-04-20 03:42] VITALS: BP 143/79; PULSE 82; TEMP 98.1
[2019-04-20 07:35] LABS: MEAN CELL VOLUME 89 fl (80.0-100.0); MEAN CORPUSCULAR HGB CONC 33 g/dl (33.0-37.0); MEAN PLATELET VOLUME 8.2 fl (7.4-10.4); PLATELET COUNT 387 K/mm3 (130-400); RED BLOOD COUNT 2.66 M/mm3 (4.20-5.60); REDCELL DISTRIBUTION WIDTH-CV 13.4 % (11.5-14.5)
--- NOTE | 2019-04-20 07:44 | NUR ---
PT REQUESTING MORPHINE 2MG EVERY 2 HOURS. ENCOURAGED PT TO USE NORCO FOR PAIN CONTROL. ICE PACK TO RIGHT KNEE THROUGHOUT THE NIGHT. CONT TO NEED STOOL FOR OCCULT BLOOD. GARCIA WRAP TO RLE FROM UPPER THIGH TO TOES. END OF SHIFT GIVEN TO ONCOMING RN.
[2019-04-20 07:46] LABS: HEMATOCRIT 23.7 % (42.0-52.0); HEMOGLOBIN 7.7 g/dl (13.5-18.0); MEAN CORPUSCULAR HEMOGLOBIN 29 pg (27.0-31.0)
[2019-04-20 07:47] LABS: INR 2.6 (0.8-3.0); PROTHROMBIN TIME 31.4 SECONDS (9.7-12.8)
[2019-04-20 07:53] LABS: CALCIUM 8.1 mg/dL (8.4-10.2); CREATININE, serum 0.96 (0.66-1.25); POTASSIUM 4.6 mmol/L (3.4-5.0)
[2019-04-20 08:25] VITALS: BP 150/77; PULSE 87; TEMP 98.7
--- NOTE | 2019-04-20 11:00 | NUR ---
Assessment complete. Pt resting in bed, A&O x 4. Right knee elevated on pillows and ice pack in place, dressing CDI. Pt reports pain to right knee is much improved, rating a 4 out of 10 on pain scale. Incision to right 3rd finger with edges approximated, no s/s of complications. PICC line to right upper arm with good blood return, no s/s of infiltration or phlebitis. POC reviewed with pt regarding pain control. Pt requests pain medication that is availabe now, does not feel he can wait another hour for the oral pain medication. No further needs reported. Call light in reach.
[2019-04-20 11:15] LABS: BAND 5 % (0-10); EOSINOPHIL 1 % (0-4); LYMPHOCYTE 17 % (20.0-51.0); NEUTROPHILS 70 % (42.0-75.2); PLATELET ESTIMATE NORMAL (NORMAL)
[2019-04-20 12:45] VITALS: BP 150/73; PULSE 86; TEMP 98.3
--- NOTE | 2019-04-20 14:16 | NUR ---
PRN oral pain medication administered one hour after IV pain medication per pt's report that the IV medication just prior to when the oral medication is due is controlling his pain the best it has been during his stay. No further needs reported. Call light in reach.
[2019-04-20 17:05] VITALS: BP 159/86; PULSE 90; TEMP 98.4
[2019-04-20 19:54] VITALS: BP 150/77; PULSE 92; TEMP 98
--- NOTE | 2019-04-20 21:00 | NUR ---
Patient assessed at this time. Alert and oriented x 4, and able to make needs known. Reports level 7 pain to right knee. Double lumen PICC to RUE. Dressing to area CDI. LS CTA. Respirations even and unlabored. Denies SOB and dyspnea. On oxygen at 1 L/min via NC. HRR. Telemetry in place-NS. Capillary refill less than 3 seconds. Non-tenting skin turgor. BSAx4. Abdomen soft and non-tender. Sutures to right 3rd digit are CDI. Surgical site is open to air. Dressing to right leg is CDI. Ice to right knee. 1+ edema to left foot. Scaling to left foot. Aquaphor applied. Voices no questions, needs, or concerns at this time. Resting in bed watching TV at this time. Call light is within reach.
--- NOTE | 2019-04-20 22:00 | NUR ---
Patient given PRN [place] as requested. Voices no other questions, needs, or concerns at this time. Resting in bed watching TV at this time. Call light is within reach.
[2019-04-21 00:57] VITALS: BP 146/77; PULSE 84; TEMP 98.3
[2019-04-21 04:16] VITALS: BP 150/80; PULSE 90; TEMP 98.1
[2019-04-21 06:29] LABS: MEAN CELL VOLUME 91 fl (80.0-100.0); MEAN CORPUSCULAR HGB CONC 32 g/dl (33.0-37.0); MEAN PLATELET VOLUME 8.3 fl (7.4-10.4); PLATELET COUNT 419 K/mm3 (130-400); RED BLOOD COUNT 2.65 M/mm3 (4.20-5.60); REDCELL DISTRIBUTION WIDTH-CV 13.7 % (11.5-14.5)
[2019-04-21 06:31] LABS: HEMATOCRIT 24.2 % (42.0-52.0); HEMOGLOBIN 7.7 g/dl (13.5-18.0); MEAN CORPUSCULAR HEMOGLOBIN 29 pg (27.0-31.0)
[2019-04-21 06:32] LABS: PROTHROMBIN TIME 24.1 SECONDS (9.7-12.8)
--- NOTE | 2019-04-21 06:35 | NUR ---
Patient did well during the night. Received PRN [place] around 0600 for pain to right knee. States that he does want to get into recliner for breakfast today. Voices no questions, needs, or concerns at this time. Resting in bed watching TV at this time. Call light is within reach.
[2019-04-21 06:46] LABS: CALCIUM 8.2 mg/dL (8.4-10.2); CREATININE, serum 0.91 (0.66-1.25); POTASSIUM 4.5 mmol/L (3.4-5.0)
[2019-04-21 08:41] VITALS: BP 167/81; PULSE 84; TEMP 97.9
[2019-04-21 09:37] LABS: BAND 5 % (0-10); EOSINOPHIL 2 % (0-4); LYMPHOCYTE 17 % (20.0-51.0); NEUTROPHILS 69 % (42.0-75.2); PLATELET ESTIMATE INCREASED (NORMAL)
[2019-04-21 12:37] VITALS: BP 164/69; PULSE 96; TEMP 98.2
[2019-04-21 16:51] VITALS: BP 156/77; PULSE 90; TEMP 98
--- NOTE | 2019-04-21 18:00 | NUR ---
Right knee pain improved with prn [place] and Morphine. Transferred to recliner chair with walker and physical therapist. Sat up for several hours. Transferred back to bed with minimal assist. Right leg elevated on pillows with ice pack. Afebrile.
--- NOTE | 2019-04-21 20:20 | NUR ---
Shift assessment complete. Pt resting in bed awake, a&o, cooperative c cares. Pt c/o continued pain to R knee, discussed pain medications et schedule. Ortho dressing in place to R knee, C/D/I. Sutures to R 3rd finger amputation noted, site s reddness/edema or any other complication. Pt denies any other c/o at this time. O2 per NC. PICC noted to R upper arm, patent c good blood return. Pt denies needs at this time. Call light in reach, bed alarm on.
[2019-04-21 21:00] VITALS: BP 147/67; PULSE 89; TEMP 98
[2019-04-22 00:47] VITALS: BP 157/71; PULSE 88; TEMP 98.2
[2019-04-22 05:55] LABS: BASO # 0.1 (0.0-0.2); BASO % 0.8 % (0.0-2.0); EOS # 0.3 (0.0-0.7); EOS % 2.9 % (0-4.0); GRAN # 5.5 (1.4-6.5); GRAN % 60.8 % (42.2-75.2); HEMATOCRIT 23.4 % (42.0-52.0); HEMOGLOBIN 7.6 g/dl (13.5-18.0); LYMPH # 2.3 (1.2-3.4); LYMPH % 25.7 % (20.0-51.0); MEAN CELL VOLUME 90 fl (80.0-100.0); MEAN CORPUSCULAR HEMOGLOBIN 29 pg (27.0-31.0); MEAN CORPUSCULAR HGB CONC 33 g/dl (33.0-37.0); MEAN PLATELET VOLUME 8.1 fl (7.4-10.4); MONO # 0.8 (0.1-0.6); MONO % 8.8 % (1.7-9.3); PLATELET COUNT 439 K/mm3 (130-400); RED BLOOD COUNT 2.59 M/mm3 (4.20-5.60); REDCELL DISTRIBUTION WIDTH-CV 13.6 % (11.5-14.5)
[2019-04-22 06:00] LABS: INR 1.8 (0.8-3.0); PROTHROMBIN TIME 20.8 SECONDS (9.7-12.8)
--- NOTE | 2019-04-22 07:00 | NUR ---
Bedside shift report received from BILL Aranda. Pt in bed resting, denies needs, will continue to monitor.
[2019-04-22 07:56] VITALS: BP 156/85; PULSE 81; TEMP 98.1
--- NOTE | 2019-04-22 08:04 | NUR ---
Warfarin Follow-up Pharmacy Note Current regimen: 5 mg po qhs LABS: INR 1.8 Changes in therapy: increase warfarin to 6 mg po QHS
[2019-04-22 08:35] LABS: C-REACTIVE PROTEIN 2.9 mg/dL (0.0-0.9); CALCIUM 8.3 mg/dL (8.4-10.2); POTASSIUM 4.6 mmol/L (3.4-5.0)
--- NOTE | 2019-04-22 10:19 | NUR ---
Assessment charted. PICC to MANAV flushes well and good blood return. PT sitting in chair at side of bed with pillows surrounding and under R knee. Removed dressing on R knee per orders, replaced with bandaids and GARCIA per pt request, sites are well approximated and healing well. R hand middle finger amputation site is well approxmated with sutures intact. L foot is red, tender, and has an abrasion on top of foot. Pt has pain at 5.5 out of 10 to R knee, PRN pain pills provided. Denies needs, will continue to moniotr.
[2019-04-22 12:00] VITALS: BP 143/86; PULSE 89; TEMP 97.8
--- NOTE | 2019-04-22 16:02 | NUR ---
Report from BILL Nuñez
[2019-04-22 17:29] VITALS: BP 155/80; PULSE 91; TEMP 98.2
--- NOTE | 2019-04-22 18:04 | NUR ---
Patient laying in bed watching TV. A&Ox4, reporting pain in right knee 7/10, pain medication given when requested. Right knee elevated on pillow. VSS. IV CDI. No further needs expressed from patient. Call light within reach
--- NOTE | 2019-04-22 20:15 | NUR ---
Patient assessed at this time. Alert and oriented x 4, and able to make needs known. Reports level 6 pain to right knee. Given PRN [place] as requested. Double lumen PICC to ALFREDO. LS CTA. Respirations even and unlabored. Denies SOB and dyspnea. On room air at this time. HRR. Capillary refill less than 3 seconds. Non-tenting skin turgor. BSAx4. Abdomen soft and non-tender. Right middle finger amputation site is well approximated. Sutes intact. Site is without redness, warmth, and drainage. Dressing to right knee is CDI. Voices feelings much better overal, and has been able to ambulate with one assist with walker and gaitbelt. Patient's feet have 1+ edema bilaterally. Left foot red, warm to touch, and continues to have scaling/flaking. Voices no questions, needs, or concerns at this time. Call light is within reach.
[2019-04-22 20:52] VITALS: BP 144/72; PULSE 94; TEMP 98.3
[2019-04-22 23:03] VITALS: BP 137/74; PULSE 92; TEMP 98.4
[2019-04-23 03:51] VITALS: BP 144/78; PULSE 89; TEMP 98.7
[2019-04-23 05:47] LABS: BASO # 0.1 (0.0-0.2); BASO % 0.5 % (0.0-2.0); EOS # 0.3 (0.0-0.7); GRAN # 5.8 (1.4-6.5); GRAN % 53.9 % (42.2-75.2); LYMPH # 3.6 (1.2-3.4); LYMPH % 33.6 % (20.0-51.0); MEAN CELL VOLUME 91 fl (80.0-100.0); MEAN CORPUSCULAR HGB CONC 32 g/dl (33.0-37.0); MEAN PLATELET VOLUME 8.3 fl (7.4-10.4); MONO # 0.9 (0.1-0.6); MONO % 8.2 % (1.7-9.3); PLATELET COUNT 507 K/mm3 (130-400); REDCELL DISTRIBUTION WIDTH-CV 13.6 % (11.5-14.5)
[2019-04-23 05:49] LABS: INR 1.6 (0.8-3.0); PROTHROMBIN TIME 19.4 SECONDS (9.7-12.8)
[2019-04-23 05:50] LABS: HEMATOCRIT 25.4 % (42.0-52.0); MEAN CORPUSCULAR HEMOGLOBIN 29 pg (27.0-31.0)
[2019-04-23 05:56] LABS: CALCIUM 8.6 mg/dL (8.4-10.2); CREATININE, serum 1.06 (0.66-1.25); POTASSIUM 4.8 mmol/L (3.4-5.0)
--- NOTE | 2019-04-23 06:05 | NUR ---
Patient received PRN [place] as requested for pain to right knee around 0100 and 0500. Continues to state that left foot is bothering him as well. Encouraged to elevate feet on pillows. Patient voices no other questions, needs, or concerns at this time. Resting in bed watching TV at this time. Call light is within reach.
[2019-04-23 07:59] VITALS: BP 148/71; PULSE 83; TEMP 98.3
--- NOTE | 2019-04-23 10:00 | NUR ---
PICC intact right upper arm. With sterile technique right upper arm PICC dressing change done with insertion site cleansed with chlorhexidine 1, chlorhexidine impregnated disc applied, skin prep, StatLock, and Tegaderm applied. No signs or symptoms of IV complications noted. No concerns voiced. Arm wrapped with Reynold to protect catheter.
[2019-04-23 10:40] LABS: ALBUMIN 2.8 gm/dL (3.5-5.0)
[2019-04-23 10:45] VITALS: BP 134/57; PULSE 94; TEMP 97.6
--- NOTE | 2019-04-23 12:09 | NUR ---
Commercial Accountant spoke with Yessenia, IPR director and hospitalist about discharge planning. Yessenia advised that at this time, [facility] is going to prioritize admissions that have a payer source. DANISH met with patient and patient's daughter who advise they have been working with [employer] Counselor on completing an application for Medicaid although they have been having some difficulty in obtaining information from Workmans Comp. SW to continue to follow.
--- NOTE | 2019-04-23 13:47 | NUR ---
Wound care consulted.
[2019-04-23 15:10] VITALS: BP 151/62; PULSE 94; TEMP 98.3
--- NOTE | 2019-04-23 19:45 | NUR ---
Pt stable this shift. Pt left foot remains swollen and red and warm. Wound care consulted and medications adjusted by hospitalist. Pt left knee wrapped with GARCIA bandage. Pt ambulates with assist. Pt pain managed with PRN pain medications. Pt denies SOB, no fever, no diarrhea reported. Pt has call light in reach.
[2019-04-23 20:20] VITALS: BP 139/68; PULSE 93; TEMP 98.5
[2019-04-24] VITALS (7 sets, daily range): BP systolic 121–149; BP diastolic 59–78; PULSE 87–97; TEMP 97.4–98.7
--- NOTE | 2019-04-24 01:54 | NUR ---
PT AWAKE WATCHING TV. REWRAPPED RIGHT KNEE WITH GARCIA WRAP. 3 BANDAIDS INTACT AND 1 BANDAID CHANGED. REQUEST AND GIVEN NORCO 2 TABS FOR RIGHT HAND DISCOMFORT AND RIGHT KNEE DISCOMFORT. ANTIBIOTIC GIVEN OVER 5MIN THRU THE RED PORT. ASK FOR A CUP OF COFFEE AND GIVEN TO PT. CALL LIGHT IN REACH.
--- NOTE | 2019-04-24 04:57 | NUR ---
PT IN [facility] THIS SHIFT. GIVEN NORCO 7.5 2 TABS EACH TIME. PAIN CONTROLLED WITH THIS. NO MORPHINE THIS SHIFT. VOIDING LARGE AMOUNT PER URINAL. URINE CLEAR, YELLOW. CALL LIGHT IN REACH.
--- NOTE | 2019-04-24 05:43 | NUR ---
PT REQUEST AND GIVEN NORCO X2 FOR PAIN RATED 4-5/10. PAIN CONTINUES TO BE IN RIGHT KNEE AND LEFT ANKLE.
[2019-04-24 05:45] LABS: INR 1.6 (0.8-3.0); PROTHROMBIN TIME 19.1 SECONDS (9.7-12.8)
--- NOTE | 2019-04-24 06:38 | NUR ---
PT CALLS AND REQUEST NORCO FOR PAIN. GIVEN 2 TABS FOR PAIN RATED 5/10.
--- NOTE | 2019-04-24 07:00 | NUR ---
Bedside shift report received from BILL Gregory. Pt in bed resting with eyes closed, will continue to monitor.
--- NOTE | 2019-04-24 08:33 | NUR ---
Jannet, Financial Counselor reports patient's Medicaid is in eligibility.
--- NOTE | 2019-04-24 10:55 | NUR ---
Assessment charted, pt resting in chair at side of bed, doing well, ambulated well. Pain to L foot, R knee and R middle finger, PRN pain meds given both PO and IV per request. R knee is doing well, no drainage and swelling improving. L foot is improving as well but still red and starting to peel, Per Dr. Devine this is probably from previous edema in the area. R middle finger doing well with sutures intact. PICC to MANAV flushes well and good blood return. Denies needs, will continue to monitor.
--- NOTE | 2019-04-24 16:34 | NUR ---
Sleeve Fixer spoke with Yessenia, [facility] director who advised patient accepted to [facility] and transfer should occur tomorrow.
--- NOTE | 2019-04-24 18:33 | NUR ---
Pt has had a good day, up to shower for first time in 3 weeks, pt felt very well after showering, PRN pain meds given per request. L foot sloughing improved. Denies needs, will give bedside shift report to nightshift nurse whow ill resume care.
--- NOTE | 2019-04-24 20:15 | NUR ---
Patient assessed at this time. Alert and oriented x 4, and able to make needs known. Reported level 4 pain to left foot and right knee. Had received PRN Morphine at shift change. Double lumen PICC to RUE. Site is without redness, warmth, swelling, and pain. LS CTA. Respirations even and unlabored. Denies SOB and dyspnea. HRR. Telemetry in place-NS. BSAx4. Abdomen soft and non-tender. Dressing to right knee CDI. 1+ edema bilateral feet. Left foot with redness, warmth, and pain. Amputation site to right 3rd digit is without redness, warmth, swelling, and pain. Open to air. Voices no questions, needs, or concerns at this time. Resting in bed with call light within reach.
[2019-04-25 03:46] VITALS: BP 138/68; PULSE 71
--- NOTE | 2019-04-25 05:55 | NUR ---
Patient has been resting in bed with eyes closed when checked on. Has voiced no further complaints of pain or discomfort at this time. Received PRN Morphine at shift change around 1900, and PRN [place] around 2200, but has not requested any further pain medication at this time. Voices no questions, needs, or concerns at this time. Call light is within reach.
[2019-04-25 06:32] LABS: INR 1.7 (0.8-3.0); PROTHROMBIN TIME 20.3 SECONDS (9.7-12.8)
--- NOTE | 2019-04-25 08:00 | NUR ---
Pt awake and alert this morning, some C/O pain, shift assessments complete, left Pt call light in reach, bed in lowest position.
[2019-04-25 08:29] VITALS: BP 151/77; PULSE 97; TEMP 98.7
[2019-04-25] MEDS ORDERED: CEFAZOLIN SODI100 ML IV (09:16)
[2019-04-25] MEDS ORDERED: XOPENEX 1.1.25 MG/3 IH (09:18)
[2019-04-25] MEDS ORDERED: DOXYCYCLINE 10100 MG PO (09:18)
[2019-04-25] MEDS ORDERED: COUMADIN 5MG5 MG/TAB PO (09:19)
[2019-04-25] MEDS ORDERED: PRINIVIL40 MG PO (09:20)
[2019-04-25] MEDS ORDERED: COUMADIN 2MG2 MG/TAB PO (09:20)
[2019-04-25] MEDS ORDERED: LASIX 20MG TABL20 MG PO (09:21)
[2019-04-25] MEDS ORDERED: TYLENOL 325MG325 MG PO (09:21)
[2019-04-25] MEDS ORDERED: PROTONIX 40MG T40 MG PO (09:21)
[2019-04-25] MEDS ORDERED: NORCO 325 MG-7.1 TAB PO (09:21)
[2019-04-25] MEDS ORDERED: BD POSIFLUSH SF10 ML IV (09:21)
[2019-04-25] MEDS ORDERED: NOVOLOG FLEX100 U/ML SQ ×2 (09:22)
[2019-04-25] MEDS ORDERED: AQUAPHOR OINTM396 GM TP (09:23)
[2019-04-25] MEDS ORDERED: LEVEMIR FLEX100 U/ML SQ (09:23)
--- NOTE | 2019-04-25 09:50 | NUR ---
Milk Receiver Tank Truck attended clinical rounds with the team. Patient to discharge to [facility] today. No additional concerns at this time.
--- NOTE | 2019-04-25 11:34 | NUR ---
Discharged to [facility].
--- NOTE | 2019-04-25 12:18 | NUR ---
Primary nurse was assisted with [phone] patient care by [employer] student Hilary Humphrey and [facility] [employer] instructor Piedad Hansen RN-BC.
== END 2019-04-25 11:34 | DRG 853 ==
LOC: COL.ER 00:16 → MEDICAL 01:46 → ICU 01:46 → MEDICAL 04-07 16:54
PROVIDERS: Anesthesiology Critical Care Medicine; Emergency Medicine; Hospitalist; Internal Medicine Pulmonary Disease; Nurse Practitioner Family; Orthopaedic Surgery; Physician Assistant; Student in an Organized Health Care Education/Training Program; ADMIT Internal Medicine
PROC: 02HV33Z Insertion of Infusion Device into Superior Vena Cava, Percutaneous Approach (ICD-10-PCS; 2019-04-04)
PROC: 0BH17EZ Insertion of Endotracheal Airway into Trachea, Via Natural or Artificial Opening (ICD-10-PCS; 2019-04-04)
PROC: 5A1945Z Respiratory Ventilation, 24-96 Consecutive Hours (ICD-10-PCS; 2019-04-04)
PROC: 0X6Q0Z2 Detachment at Right Middle Finger, Mid, Open Approach (ICD-10-PCS; principal; 2019-04-04 15:00)
PROC: 0DB78ZX Excision of Stomach, Pylorus, Via Natural or Artificial Opening Endoscopic, Diagnostic (ICD-10-PCS; 2019-04-05)
PROC: 0W9B3ZZ Drainage of Left Pleural Cavity, Percutaneous Approach (ICD-10-PCS; 2019-04-12)
PROC: BB4BZZZ Ultrasonography of Pleura (ICD-10-PCS; 2019-04-12)
PROC: 0W993ZZ Drainage of Right Pleural Cavity, Percutaneous Approach (ICD-10-PCS; 2019-04-12)
PROC: BB4BZZZ Ultrasonography of Pleura (ICD-10-PCS; 2019-04-12)
PROC: 0S9C4ZZ Drainage of Right Knee Joint, Percutaneous Endoscopic Approach (ICD-10-PCS; 2019-04-19)
DX: A41.01 Sepsis due to Methicillin susceptible Staphylococcus aureus (principal); E11.00 Type 2 diabetes mellitus with hyperosmolarity without nonketotic hyperglycemic-hyperosmolar coma (NKHHC); J18.1 Lobar pneumonia, unspecified organism; I26.99 Other pulmonary embolism without acute cor pulmonale; J96.01 Acute respiratory failure with hypoxia; I21.A1 Myocardial infarction type 2; E87.3 Alkalosis; K22.10 Ulcer of esophagus without bleeding; N17.9 Acute kidney failure, unspecified; E87.1 Hypo-osmolality and hyponatremia; I82.431 Acute embolism and thrombosis of right popliteal vein; I82.451 Acute embolism and thrombosis of right peroneal vein; J90 Pleural effusion, not elsewhere classified; L03.116 Cellulitis of left lower limb; M00.9 Pyogenic arthritis, unspecified; E11.65 Type 2 diabetes mellitus with hyperglycemia; R65.20 Severe sepsis without septic shock; K29.60 Other gastritis without bleeding; I12.9 Hypertensive chronic kidney disease with stage 1 through stage 4 chronic kidney disease, or unspecified chronic kidney disease; N18.9 Chronic kidney disease, unspecified; E87.70 Fluid overload, unspecified; E86.1 Hypovolemia; M25.461 Effusion, right knee; R11.10 Vomiting, unspecified; R41.0 Disorientation, unspecified; B96.81 Helicobacter pylori [H. pylori] as the cause of diseases classified elsewhere; D64.9 Anemia, unspecified; E11.22 Type 2 diabetes mellitus with diabetic chronic kidney disease; D47.3 Essential (hemorrhagic) thrombocythemia; Z87.891 Personal history of nicotine dependence; Z89.412 Acquired absence of left great toe; Z79.4 Long term (current) use of insulin; K29.80 Duodenitis without bleeding; K21.0 Gastro-esophageal reflux disease with esophagitis
CPT/HCPCS: 99231-AI; 99232-AI; 99233-AI; 99239; A9284; A9500; C1751; C9113; J0171; J0330; J0360; J0690; J0692; J1200; J1644; J1650; J1720; J1815; J2270; J2405; J2543; J2704; J2997; J3010; J3301; J3370; J3480; J7030; J7050; J7120; P9016; Q9967

== ENCOUNTER 2019-04-25 11:31 | Inpatient (IN) | payer OTHER ==
[~2019-04-25] VITALS: Ht 182.9 cm; Wt 93.7 kg
[~2019-04-25 11:31] MED LIST: AQUAPHOR OINTM396 GM TP; BD POSIFLUSH SF10 ML IV; CEFAZOLIN SODI100 ML IV; COUMADIN 2MG2 MG/TAB PO; COUMADIN 5MG5 MG/TAB PO; DOXYCYCLINE 10100 MG PO; LASIX 20MG TABL20 MG PO; LEVEMIR FLEX100 U/ML SQ; LIPITOR 40MG TA40 MG; NORCO 325 MG-7.1 TAB PO; NOVOLOG FLEX100 U/ML SQ; PRINIVIL10 MG PO; PRINIVIL40 MG PO; PROTONIX 40MG T40 MG PO; TRESIBA FL100 UNIT/1 SQ; TYLENOL 325MG325 MG PO; XOPENEX 1.1.25 MG/3 IH
[2019-04-25 16:54] VITALS: BP 147/73; PULSE 90; TEMP 97.6
[2019-04-25 18:00] VITALS: BP 145/69; PULSE 91; TEMP 98
--- NOTE | 2019-04-25 18:00 | NUR ---
Patient arrived to [facility] at 11:31 AM this morning. There was difficulty with getting patient's lunch to him due to his discharge from [facility] unit and readmission to [facility] unit. Patient did finally eat around 1:30 PM. This nurse appologized for the delay. Patient was assessed by this nurse and then began therapies. He is currently resting in recliner, call light in reach and alarm is on. Patient's left heel had a scab fall off it last evening per patient. This nurse applied heel protectors to both of patient's heels to prevent any further issues. Patient had a wound consult earlier this week and there were no new orders at this time. Will continue to monitor. Reported off to night nurse that patient wanted to make sure labs were followed up on - like they had been when on the medical unit. BILL Elder will communicate this to the day nurse to make sure this will be addressed with Dr. Hall. They had been monitoring his CBC and PT/INR daily. Patient had a large BM this evening.
[2019-04-25 18:05] VITALS: BP 143/71; PULSE 96; TEMP 98.9
--- NOTE | 2019-04-25 21:00 | NUR ---
PT SLEEPING BUT WAKES EASILY. A&OX4. PLEASANT. DENIES NEED FOR PAIN MEDICATION. ENC HS SNACK D/T 89 ACCUCHECK. TOOK 100% GLUCERNA. UNWRAPPED RLE GARCIA. 5 BANDAIDS TO RT KNEE FROM ARTHROSCOPY- CDI. SEE ASSESSMENT RE RT HEEL WOUND. PLACED NON ADHERANT DRSG THEN GAUZE WRAP WITH HEEL PROTECTOR. ENC ELEVATION. LLE UNWRAPPED GARCIA TO AIR. PT COMFORTABLE AT THIS TIEM. NO NEEDS. CALL LIGHT IN REACH. BED ALARM SET.
[2019-04-26 05:47] VITALS: BP 158/77; PULSE 94; TEMP 98.8
[2019-04-26 08:49] LABS: INR 1.9 (0.8-3.0); PROTHROMBIN TIME 22.4 SECONDS (9.7-12.8)
--- NOTE | 2019-04-26 10:48 | NUR ---
Pt had RLE elevated in recliner on pillow with ice since end of PT. Edu about norco PRNs. Informed pt that the morphine was not continued. Glasses in place, yellow gripper socks to BLE with heel protector on L heel with 2 cm opening- superficial, pink raw wound bed, scaling around heel.
--- NOTE | 2019-04-26 14:37 | NUR ---
Daughter and her friend visiting.
--- NOTE | 2019-04-26 14:41 | NUR ---
OT reported L ankle area swollen, painful, and beginning to weep slightly. Area is dark red/purple in color, excoriations across bridge of foot near tibia, open, dry linear lesions. Aquaphor oint applied after shower this morning. Applied light kerlix wrap followed by myriam to LLE midway up calf, pt was agreeable to this for drainage/compression. BLE elevated in recliner, myriam to R knee, declines ice pack at this time. Pt has 1400 glucerna on tray, urinal in reach, call lt in reach.
--- NOTE | 2019-04-26 14:46 | NUR ---
DANISH met with the patient to complete initial intake, as the patient is new to [facility]. The patient lives in [place] with his son (Zion ph#[phone]) and [id number] (Lisseth). He reports independence with ADLs prior to hospitalization and does not have any DME. The patient's PCP is Dr. Jas Herrera and he receives his medication at [facility] in [place]. He reports that he will have difficulties affording his meds. The patient is pending disability and Medicaid. The patient's advanced directives are in EMR. His DPOA-HC is his daughter, Jennifer Reddy, and the alternate is his son, Zion. DANISH spoke to the patient's daughter, Jennifer, and a family meeting was scheduled for Monday, 04/30, at 1300. DANISH informed IPR Director. DANISH to continue to follow to ensure a safe discharge.
[2019-04-26 15:31] VITALS: BP 133/66; PULSE 93; TEMP 98.2
--- NOTE | 2019-04-26 19:07 | NUR ---
Bedside report to BILL Andres. Pt in recliner with BLE elevated, ice to R knee w/ myriam wrap, undid wrap to L ankle to show wound to heel, donned yellow gripper with heel protector. Call lt and urinal in reach, glasses in place, pt denies needs at this time.
--- NOTE | 2019-04-26 21:30 | NUR ---
[facility] meds all [facility] with [facility] for pain and IV antibiotic administered without problems. Patient given glucerna and grahams per request for snack and ate 100%. Drowsy and rests on left side. Heel protectors on bilateral heels.
--- NOTE | 2019-04-27 02:11 | NUR ---
Patient has been resting with eyes closed. Respirations with ease.
--- NOTE | 2019-04-27 04:20 | NUR ---
PATIENT REPORTS PAIN LEFT KNEE 6/10 AND NORCO 1 TAB GIVEN. REPORTS "OH YA" TO RESTED WELL TONIGHT.
[2019-04-27 05:49] VITALS: BP 136/63; PULSE 82; TEMP 99
--- NOTE | 2019-04-27 09:42 | NUR ---
Patient resting in bed. Did well with breakfast. One tab norco for pain. took all am medications. Patient ready for therapy
--- NOTE | 2019-04-27 14:40 | NUR ---
Patient resting in chair, he reports being exhausted after therapy & sore. Second pain pill relieved pain & repositioned with pillows for comfort. He did well with lunch & blood sugar controlled. Picc re wrapped with myriam bandage & ancef per orders. Minimal needs at this time
[2019-04-27 16:48] VITALS: BP 146/64; PULSE 90; TEMP 98.3
--- NOTE | 2019-04-27 17:23 | NUR ---
Patient sitting up in chair. Fresh ice pack for his knee. [place] for continued pain, reports its worse in ankle. lotion applied to heel. heel protectors on. more swelling to ankle. Insulin per scale, tolerate meal.
--- NOTE | 2019-04-27 18:50 | NUR ---
Report received from Nadja KHAN. Patient rests in bed watching TV. Denies needs at this time. Has ice pack to right knee.
--- NOTE | 2019-04-27 21:30 | NUR ---
Patient awakened for HS meds and norco 1 tab given for left ankle and right knee pain. Has increased warmth to right calf but knee temp WNL and no redness. 4 bandaids to knee CDI. Left heel with large area of peeling skin and 2 brown discolored patches and 2 cm stage 2 center pink. Socks removed for the night and ointment applied BLE and elevated on pillows/heel protectors on. Top of buttucks with peeling/flaking skin and very small slit in skin noted to inner buttucks. Barrier cream applied. Patient rests on side.
--- NOTE | 2019-04-28 02:09 | NUR ---
Patient has been resting with eyes closed. Respirations with ease.
[2019-04-28 05:45] VITALS: BP 138/72; PULSE 88; TEMP 98.9
--- NOTE | 2019-04-28 06:28 | NUR ---
Patient reports he slept around 5 hours this noc. Reports RLE 10/12 and norco 1 tab given.
[2019-04-28 08:37] LABS: INR 1.8 (0.8-3.0); PROTHROMBIN TIME 21.5 SECONDS (9.7-12.8)
--- NOTE | 2019-04-28 15:41 | NUR ---
Patient resting in bed at this time, call light in reach and bed alarm on. Patient reported that the yellow socks that he wears causes his feet to become dry and scaly. This nurse removed socks while patient was in bed and will instruct staff to put socks on his feet prior to any transferring. Will continue to monitor.
[2019-04-28 17:21] VITALS: BP 152/52; PULSE 58; TEMP 97.3
--- NOTE | 2019-04-28 19:41 | NUR ---
Patient ate well this shift. He made sure to roll from side to side to prevent pressure to his bottom this shift. He did not want to change clothes this morning so did not get to observe him with dressing skills. He did rest well this afternoon in his bed. He refused any mouth care today. Will continue to monitor. Reported off to night nurse.
--- NOTE | 2019-04-28 21:45 | NUR ---
pt doing ok. resting in bed. is able to move around in bed. does have purple/red sore spot on bottom. so qued to turn at least every 2 hours. no issues turning. no other concerns at this time. call light within reach. will continue to monitor
--- NOTE | 2019-04-29 03:06 | NUR ---
Pt has been sleeping in bed most of night. Uses urinal. Has not had BM. No complaints at this time. Call light within reach, will continue to monitor
[2019-04-29 03:28] VITALS: BP 143/78; PULSE 86; TEMP 98.4
[2019-04-29 07:40] LABS: BASO # 0.1 (0.0-0.2); BASO % 0.7 % (0.0-2.0); EOS # 0.2 (0.0-0.7); EOS % 1.8 % (0-4.0); GRAN # 4.3 (1.4-6.5); GRAN % 49.7 % (42.2-75.2); LYMPH # 3.3 (1.2-3.4); LYMPH % 37.5 % (20.0-51.0); MEAN CELL VOLUME 90 fl (80.0-100.0); MEAN CORPUSCULAR HGB CONC 32 g/dl (33.0-37.0); MEAN PLATELET VOLUME 7.9 fl (7.4-10.4); MONO # 0.9 (0.1-0.6); PLATELET COUNT 570 K/mm3 (130-400); RED BLOOD COUNT 2.66 M/mm3 (4.20-5.60); REDCELL DISTRIBUTION WIDTH-CV 13.6 % (11.5-14.5)
[2019-04-29 07:43] LABS: HEMOGLOBIN 7.7 g/dl (13.5-18.0); MEAN CORPUSCULAR HEMOGLOBIN 29 pg (27.0-31.0)
[2019-04-29 07:53] LABS: ALBUMIN 3.1 gm/dL (3.5-5.0); BILIRUBIN,TOTAL 0.2 mg/dL (0.0-1.0); C-REACTIVE PROTEIN 2.9 mg/dL (0.0-0.9); CALCIUM 8.7 mg/dL (8.4-10.2); CREATININE, serum 1.07 (0.66-1.25); POTASSIUM 4.4 mmol/L (3.4-5.0); TOTAL PROTEIN 8.3 gm/dL (6.4-8.2)
--- NOTE | 2019-04-29 08:09 | NUR ---
Bedside report from BILL Mcfarland pt to recliner with BLE elevated and on pillow. Took pills whole with thin liquids. [place] for heel and rt knee pain. Applied Aquphor ointment to BLE, L heel appears to be healing, scab intact, cont to scale off large pieces of dry white skin. Re-wrapped BLE with myriam and heel protectors in place.
[2019-04-29 08:27] LABS: ERYTHROCYTE SEDIMENTATION RATE > 140 mm/hr (0-30)
--- NOTE | 2019-04-29 12:58 | NUR ---
Pt took shower with OT prior to lunch, re-wrapped BLE and heel protectors in place, gripper socks on.
--- NOTE | 2019-04-29 14:11 | NUR ---
Admission QIM scores were reviewed by the team. Code of 4 chosen for rolling left to right was determined by team discussion to be the most usual performance before interventions for this patient during the assessment period.--PD Akash
[2019-04-29 14:52] VITALS: BP 127/65; PULSE 98; TEMP 98.3
--- NOTE | 2019-04-29 20:46 | NUR ---
Bedside report to BILL Rollins. Pt in bed with alarm on, call lt in reach, emptied urinal, myriam and heel protectors and grippers in place to BLE. Dr. Hernandes's office states the diver assistant will remove pt's sutures on Monday, pt verbalizes understanding. PICC w/o complications. [place] for pain. Family visited today. Pt pleasant, A&O, c/o left ankle pain, states improves with norco, myriam, elevation.
--- NOTE | 2019-04-30 04:18 | NUR ---
Patient has rested well throughout the night. PRN pain medication given at bedtime. Patient doing well on drinking fluids and output is good. Urinal dumped by staff. Patient uses urinal independently throughout the night. Pain medication effective. Patient did not transfer this shift. Denies any further needs. Will continue to monitor patient.
[2019-04-30 05:01] VITALS: BP 137/73; PULSE 86; TEMP 98.1
[2019-04-30 07:12] LABS: INR 1.9 (0.8-3.0); PROTHROMBIN TIME 22.6 SECONDS (9.7-12.8)
--- NOTE | 2019-04-30 08:42 | NUR ---
Pt doing ok. Alert and oriented with VSS. Pt sitting up in chair eating breakfast. No sliding scale insulin required this AM. Patient c/o mininal pain in feet bilaterally. Pt to have PT and OT this AM. No concerns at this time. Call light within reach, will continue to monitor
--- NOTE | 2019-04-30 14:24 | NUR ---
Warfarin Follow-up Pharmacy Note Current regimen: Warfarin 7.5 mg po qHS LABS: INR 1.9 Changes in therapy: Will increase Warfarin to 8 mg po qHS as INR slightly subtherapeutic. Pharmacy will continue to monitor daily INR levels.
--- NOTE | 2019-04-30 14:53 | NUR ---
Needle Leader attended family meeting with patient, patient's daughter Jennifer, IPR Director Yessenia, and PT/OT. Yessenia opened the meeting by explaining purpose and PT/OT reviewed patient progress with the team. At this time, discharge date is unknown. Patient expressed that one of his goals is to walk without the walker although understands utilizing the walker is pertinent to maintaining his safety. Patient states pain in his left ankle has caused concern. Yessenia encouraged patient to review this concern with ortho and patient expressed understanding. Patient continues IV antibiotics and SW will continue to monitor for potential need for outpatient IV antibiotics upon discharge. Patient's daughter, Jennifer reports she continues to work with [facility] to establish Medicaid and is involved in her patient's care plan. SW will continue to follow to ensure safe discharge.
--- NOTE | 2019-04-30 15:09 | NUR ---
Pt medication ANCEF given at 1425. [facility] will not allow this nurse to scan medication. IT notified
[2019-04-30 15:20] VITALS: BP 118/60; PULSE 92; TEMP 98.9
--- NOTE | 2019-04-30 19:03 | NUR ---
REPORTS FROM DAY SHIFT NURSE RECEIVED, PATIENT LAYING IN BED WATCHING TV WITH CALL LIGHT/WATER PITCHER WITHIN REACH. REPORTS WANTS PAIN MEDS WHEN NEXT AVAILABLE, REPORTING PAIN LEVEL OF 6/10 TO BOTTOM OF LEFT FOOT.
--- NOTE | 2019-04-30 22:42 | NUR ---
RESTING IN BED WITH EYES CLOSED, DOES NOT AROUSE WHEN DOOR OPENED. RESPIRATIONS NON LABORED. CALL LIGHT WITHIN PATIENT'S REACH.
--- NOTE | 2019-04-30 23:26 | NUR ---
TILTED TO RIGHT SIDE, RESTING WITH EYES CLOSED WITH BREATHING UNRESTRICTED OBSERVED.
--- NOTE | 2019-05-01 02:08 | NUR ---
RESTING WITH UNRESTRICTED BREATHING OBSERVED, REPOSITIONED SELF PARTIALLY ONTO RIGHT SIDE.
[2019-05-01 04:38] VITALS: BP 140/72; PULSE 90; TEMP 98.5
--- NOTE | 2019-05-01 05:19 | NUR ---
REPORTS WANTS PAIN MEDS WITH HIS BREAKFAST MEAL TODAY.
[2019-05-01 07:49] LABS: INR 1.9 (0.8-3.0); PROTHROMBIN TIME 23.1 SECONDS (9.7-12.8)
--- NOTE | 2019-05-01 12:40 | NUR ---
Patient reporting more pain to the right ankle and foot. Foot is warm, darker red in color and has +2 edema. Patient continues to have flaking skin. He had a shower this morning and following shower his 2nd digit toe nail on left foot fell off. There is no bleeding to exposed toe, but bandage was placed to protect the area. Will continue to monitor. New consult to address left ankle and foot was ordered per Dr. Ball and Ortho has been notified. This nurse called and spoke with Dr. Hernandes's nurse and nurse reported that patient would have sutures removed to right leg and middle finger some time this week, but they do not know a specific day and time. This was communicated to patient.
--- NOTE | 2019-05-01 16:21 | NUR ---
Frame Aligner met with patient to review team conference notes. Patient states he is still waiting to hear from Ortho about the concerns with his foot and ankle. Patient states he walked with therapy today and is working hard on what he can do. Patient states he has no other questions at this time. SW provided copy of team conference notes. SW contacted patient's daughter, Jennifer (ph#[phone]) to review conference notes. Jennifer has no questions at this time. Patient will be re-evaluated next week on setting a discharge date. SW to continue to follow.
--- NOTE | 2019-05-01 17:06 | NUR ---
Dr. Hernandes removed stictches from patient's right middle finger amputation site and right knee. See new orders per Dr. Hernandes for Venous Doppler. Radiology was called and they will be calling in staff to do this doppler. Awaiting their arrival.
[2019-05-01 18:10] VITALS: BP 136/62; PULSE 95; TEMP 98.3
--- NOTE | 2019-05-01 20:52 | NUR ---
REPORT RECEIVED FROM DAY SHIFT NURSE. PATIENT RESTING WITH EYES CLOSED CURRENTLY, BREATHING UNRESTRICTED OBSERVED WHEN ROOM ENTERED. CALL LIGHT/WATER WITHIN PATIENT'S REACH.
[2019-05-02 04:48] VITALS: BP 130/69; PULSE 87; TEMP 98.1
--- NOTE | 2019-05-02 04:49 | NUR ---
Patient in bed, awake. States pain is 5/10. Denies prn pain medication. States he would like to wait until 0700. Denies further needs at this time. Will continue to monitor.
--- NOTE | 2019-05-02 05:30 | NUR ---
RUE PICC dbl lumen caps changed per protocol.
[2019-05-02 06:15] LABS: INR 2.2 (0.8-3.0); PROTHROMBIN TIME 26.3 SECONDS (9.7-12.8)
--- NOTE | 2019-05-02 08:45 | NUR ---
Bedside report from BILL Peng orientee. Pt in bed with breakfast tray, bed alarm on, call lt in reach, emptied urinal for pt, returned to tray. BLE wrapped with myriam. PICC without complications, [place] for pain prior to morning of therapies. Rt middle finger incision CDI, sutures out, no scabs. Left "second" toenail is now missing, nail bed pink. Heel protector on left side. Pt took meds whole and left room with OT.
--- NOTE | 2019-05-02 16:43 | NUR ---
Pt in bed with alarm on, call lt in reach, ice to leg for pain, states daughter visited and assisted with shaving him this afternoon.
[2019-05-02 18:00] VITALS: BP 138/61; PULSE 92; TEMP 99.4
--- NOTE | 2019-05-02 20:12 | NUR ---
Bedside report to BILL Peng. Pt in bed watching TV, call lt and urinal in reach, pt's BLE wraps intact, legs elevated on pillows, ice to R knee, grippers in place. Pt denies needs at this time.
--- NOTE | 2019-05-02 21:44 | NUR ---
PATIENT RESTING IN BED DURING SHIFT CHANGE REPORT, CALL LIGHT/WATER WITHIN PATIENT'S REACH. DENIED ANY NEEDS OR COMPLAINTS AT THAT TIME, CURRENTLY GIVEN PAIN MED REQUESTED FOR COMFORT FOR SLEEP. OBSERVED REPORTS PAIN STILL TO LEFT FOOT. REPOSITIONS SELF IN BED.
--- NOTE | 2019-05-03 02:48 | NUR ---
SLEEPS WITH FREQUENT SELF REPOSITIONING IN BED FROM SIDE TO SIDE. CALL LIGHT/WATER WITHIN PATIENT'S REACH.
--- NOTE | 2019-05-03 04:01 | NUR ---
Sleeps, does not awaken when room entered currently. Breathes unrestricted and at an even rate. Call light/water within patient's reach. Bed in low position.
[2019-05-03 05:45] VITALS: BP 137/71; PULSE 88; TEMP 97.7
[2019-05-03 07:00] LABS: INR 2.4 (0.8-3.0); PROTHROMBIN TIME 28.3 SECONDS (9.7-12.8)
--- NOTE | 2019-05-03 07:24 | NUR ---
PATIENT REQUESTING TO HAVE PAIN MEDS WITH BREAKFAST DURING SHIFT CHANGE REPORT TO DAY NURSE. NO OTHER NEEDS REPORTED.
--- NOTE | 2019-05-03 08:20 | NUR ---
Applied aquaphor oint to BLE and wrapped in myriam
--- NOTE | 2019-05-03 11:45 | NUR ---
Pt returned from OT to recliner, BLE elevated on pillows, declines ice pack, call lt in reach, alarm on.
--- NOTE | 2019-05-03 15:12 | NUR ---
SW met with the patient to discuss VA benefits. SW provided information for the patient to apply for VA benefits. director client services will continue to follow.
--- NOTE | 2019-05-03 17:48 | NUR ---
Pt eating supper in recliner
[2019-05-03 18:50] VITALS: BP 120/61; PULSE 90; TEMP 99.2
--- NOTE | 2019-05-03 19:38 | NUR ---
Bedside report to BILL Elder. Turned bed alarm on, call lt and urinal in reach. [place] given for pain, Jael aware.
[2019-05-04 05:33] VITALS: BP 140/76; PULSE 86; TEMP 98.3
[2019-05-04 07:21] LABS: INR 2.8 (0.8-3.0); PROTHROMBIN TIME 33.2 SECONDS (9.7-12.8)
--- NOTE | 2019-05-04 07:59 | NUR ---
Warfarin Follow-up Pharmacy Note Current regimen: WARFARIN 8 MG QHS LABS: INR 2.8 (UP FROM 2.2 ON 05/02) Changes in therapy: DECREASE SLIGHTLY TO WARFARIN 7.5 MG QHS
--- NOTE | 2019-05-04 09:35 | NUR ---
Patient tolerated diet well this morning. He is a one assist with his walker and is currently with group therapy in therapy gym. Patient reporting left foot and ankle pain. It is dark in color and 2nd digit toenail that fell off a few days ago is healing well. Will continue to monitor.
--- NOTE | 2019-05-04 10:51 | NUR ---
Patient resting in recliner at this time, call light in reach and slip proof socks on. Reported pain to right knee 7/10 and given prn pain meds with good effect.
--- NOTE | 2019-05-04 11:05 | NUR ---
Removed myriam wrap to right upper leg to get some air - wrapped right foot with heel protector.
--- NOTE | 2019-05-04 15:37 | NUR ---
Patient resting in recliner call light in reach and alarm is set. Denies questions at this time.
[2019-05-04 16:27] VITALS: BP 133/64; PULSE 84; TEMP 98.1
--- NOTE | 2019-05-04 17:26 | NUR ---
Patient requested that he get Ranch dressing with his salads. This nurse ran down to [place]ichen and picked up some Ranch Dressings to put in refrigerator. Kitchen was notified of this request.
[2019-05-05 05:53] VITALS: BP 149/75; PULSE 88; TEMP 98.1
--- NOTE | 2019-05-05 07:00 | NUR ---
Report received from BILL Elder. PT in bed resting with breakfast at bedside, denies needs, will continue to monitor.
--- NOTE | 2019-05-05 08:16 | NUR ---
Assessment charted. PICC to MANAV flushes and good blood return. R middle finger is CDI with wrap on. R knee bandaids removed, scabbed and healing well. Heels bilaterally wrapped and moisturized. Pain to R knee is 6/10, PRN pain meds provided. Will try and ambulate often today. Will continue to monitor.
[2019-05-05 09:21] LABS: INR 2.9 (0.8-3.0); PROTHROMBIN TIME 34.8 SECONDS (9.7-12.8)
[2019-05-05 15:18] VITALS: BP 137/82; PULSE 87; TEMP 98
--- NOTE | 2019-05-05 17:10 | NUR ---
Pt has done well today. UP ambulating with mex2 around entire loop of surgical and IPR, able to ambulate well, good steady gait. PRN pain meds givenx2 per request. Denies needs, will give bedside shift report to MARRY Langley who will resume care.
--- NOTE | 2019-05-05 21:03 | NUR ---
Pt doing well. Alert and oriented with VSS. x1 assist to bathroom and with cares. STates he feels he is getting better and more strong and his pain has decreased. Evening meds given. Denies pain or other concerns at this time. Call light within reach, will continue to monitor
--- NOTE | 2019-05-06 04:12 | NUR ---
Pt doing well. Sleeping in bed. No concerns at this time. Call light within reach, will continue to monitor
[2019-05-06 04:17] VITALS: BP 133/77; PULSE 87; TEMP 98.5
[2019-05-06 07:31] LABS: BASO # 0.1 (0.0-0.2); BASO % 0.8 % (0.0-2.0); EOS # 0.2 (0.0-0.7); EOS % 2.3 % (0-4.0); GRAN # 3.6 (1.4-6.5); GRAN % 45.2 % (42.2-75.2); LYMPH # 3.3 (1.2-3.4); LYMPH % 41.8 % (20.0-51.0); MEAN CELL VOLUME 89 fl (80.0-100.0); MEAN CORPUSCULAR HGB CONC 32 g/dl (33.0-37.0); MEAN PLATELET VOLUME 8.1 fl (7.4-10.4); MONO # 0.7 (0.1-0.6); MONO % 9.5 % (1.7-9.3); PLATELET COUNT 484 K/mm3 (130-400); RED BLOOD COUNT 2.67 M/mm3 (4.20-5.60); REDCELL DISTRIBUTION WIDTH-CV 13.2 % (11.5-14.5)
[2019-05-06 07:42] LABS: ALANINE AMINOTRANSFERASE < 6 U/L (21-72); ALBUMIN 3.2 gm/dL (3.5-5.0); ALKALINE PHOSPHATASE 146 U/L (50-136); ANION GAP 8 mmol/L (7-16); AST,SGOT 25 U/L (15-37); BILIRUBIN,TOTAL 0.1 mg/dL (0.0-1.0); BLOOD UREA NITROGEN 24 mg/dL (9-20); C-REACTIVE PROTEIN 2.8 mg/dL (0.0-0.9); CALCIUM 8.8 mg/dL (8.4-10.2); CARBON DIOXIDE 28 mmol/L (22-30); CHLORIDE 99 mmol/L (98-107); CREATININE, serum 1.11 (0.66-1.25); GLUCOSE 171 mg/dL (74-106); INR 2.8 (0.8-3.0); MAGNESIUM 1.8 mg/dL (1.6-2.3); POTASSIUM 4.5 mmol/L (3.4-5.0); PROTHROMBIN TIME 34.1 SECONDS (9.7-12.8); SODIUM 134 mmol/L (137-145); TOTAL PROTEIN 8.5 gm/dL (6.4-8.2)
[2019-05-06 07:43] LABS: HEMATOCRIT 23.8 % (42.0-52.0); HEMOGLOBIN 7.5 g/dl (13.5-18.0); MEAN CORPUSCULAR HEMOGLOBIN 28 pg (27.0-31.0)
--- NOTE | 2019-05-06 11:49 | NUR ---
Report from BILL Wynn. Pt ate breakfast in bed, heel protectors and gripper socks in place, emptied urinal, norco for pain prior to therapy, alert, pleasant, call lt in reach.
--- NOTE | 2019-05-06 12:33 | NUR ---
Pt states Room Service picked up his tray, pt states he ate 100%
--- NOTE | 2019-05-06 16:39 | NUR ---
DANISH met with the patient to discuss weekend care. The patient reports staff goes out of their way to help him and he is happy with his care. patient services rep will continue to follow.
--- NOTE | 2019-05-06 17:17 | NUR ---
Pt c/o pain to PICC site, reported to MIRTA Alexander RN, she suggested pt hot pack area, suspects pt is feeling difference of positioning of biopatch or statlock or tape may be pinching, may request dressing change tomorrow if persists.
[2019-05-06 17:39] VITALS: BP 153/74; PULSE 90; TEMP 98.9
--- NOTE | 2019-05-06 19:00 | NUR ---
Bedside shift report received from Leidy KHAN. Patient rests in bed. Denies needs at this time.
--- NOTE | 2019-05-06 19:08 | NUR ---
Bedside report to BILL Andres. Pt in bed, alarm on, call lt in reach, pt reading book in NAD, reynold to giovanny heels over heel protectors and gripper socks in place. Reynold wrap up LLE to knee helped pain significantly.
--- NOTE | 2019-05-07 01:48 | NUR ---
Patient awake. Urinal emptied twice by nurse. States getting a little sleep. "pain tolerable" and denies needs at this time.
[2019-05-07 05:47] VITALS: BP 143/80; PULSE 87; TEMP 98.5
--- NOTE | 2019-05-07 05:55 | NUR ---
Patient reports pain right knee 5/10 and norco 1 tab given per request.
--- NOTE | 2019-05-07 07:48 | NUR ---
Patient resting in bed at this time, call light in reach and bed alarm is on. Patient reported 4/10 pain to left foot, right knee radiating to right hip. Tolerated diet well.
[2019-05-07 08:00] LABS: INR 2.6 (0.8-3.0); PROTHROMBIN TIME 30.9 SECONDS (9.7-12.8)
--- NOTE | 2019-05-07 11:34 | NUR ---
Patient just returned from Group Therapy and is eating lunch in his recliner. This nurse brought pain medication down to patient when in group therapy pain had increased at the time 12/12, but has since gone back down in pain level. Will continue to monitor.
--- NOTE | 2019-05-07 12:38 | NUR ---
Wrapped patients right knee due to pain. Will continue to monitor.
[2019-05-07 16:21] VITALS: BP 135/65; PULSE 92; TEMP 98.8
--- NOTE | 2019-05-07 17:26 | NUR ---
Patient was set up for grooming this morning using a swab and toothpaste to clean his mouth. Patient was independent with his meals this shift. He was set up with dressing his upper body, refusing to change his pants from yesterday. Denies questions at this time. Pain is being controlled with prn pain meds and is being effective. Will continue to monitor.
--- NOTE | 2019-05-07 20:50 | NUR ---
HS meds all reviewed along with norco 2 tabs for BLE pain and given. BS 227 (patient drank glucerna prior to accu check) and SSI reviewed and given. Wraps BLE removed except right knee myriam wrap(patient wants to keep on "gives knee support". BLE elevated on pillows. Coffee given.
--- NOTE | 2019-05-08 00:32 | NUR ---
RESTING WITH EYES CLOSED, DOES NOT AWAKEN WITH ROOM ENTERED, BREATHING NONLABORED/EVEN. CALL LIGHT WITHIN PATIENT'S REACH.
[2019-05-08 05:45] VITALS: BP 136/73; PULSE 88; TEMP 98.2
--- NOTE | 2019-05-08 06:55 | NUR ---
REPORT GIVEN TO DAY SHIFT NURSE, TRISH KHAN. PATIENT RESTING IN BED WITH NO COMPLAINTS. CALL LIGHT WITHIN REACH.
[2019-05-08 07:26] LABS: INR 2.5 (0.8-3.0); PROTHROMBIN TIME 30.6 SECONDS (9.7-12.8)
--- NOTE | 2019-05-08 09:02 | NUR ---
Patient currently working with therapy at this time. Tolerated morning meal well eating 100%. Pain to right knee and left foot reported and given prn pain meds. Will continue to monitor.
--- NOTE | 2019-05-08 11:22 | NUR ---
Clerical Administrator contacted [employer] Financial Counselor to follow up on patient insurance coverage. Per [employer], patient is still medicaid pending and case has been marked urgent. SW to continue to follow.
--- NOTE | 2019-05-08 16:51 | NUR ---
Operating Room Rn met with patient to review team conference notes and also provide copy to patient. Patient to discharge home on Thursday 05/10. SW reviewed need for front wheeled walker, outpatient IV antibiotics, and financial assistance with medications. Patient reports upon discharge he will meet with someone in [place] to start the process of establishing VA benefits as he is a . DANISH presented DME Choice Form to patient who selected [facility] DANISH faxed face sheet, therapy notes, H&P, and [facility] Financial Assistance Application to [facility] and spoke with Piedad at [facility] about referral. DANISH will follow with completed order and supporting documents for financial assistance. DANISH contacted [facility] who advised they could take patient and first appointment will likely be Friday 05/11 at 0800. DANISH will send discharge orders, copy of Financial Assistance Application, and copy of Medicaid Application to [facility] upon discharge. DANISH contacted patient's daughter, Jennifer to review team conference notes. Jennifer states she will ensure transportation is provided to [facility] daily for outpatient IV antibiotics. DANISH to continue to follow to ensure safe discharge.
--- NOTE | 2019-05-08 18:00 | NUR ---
Elijah attended all therapies today. He was made Independent in his room and hallway per PT. Discharge was discussed and he will be going home on Monday. Appointments were made. Awaiting Dr. Goetz to consult patient and make his recommendations for antibiotic discharge orders. Once that is determined [facility] out patient can be set up. SW made [facility] aware of this. Patient tolerating pain meds receiveing them every 4 hours this shift. Patient denied questions at this time.
[2019-05-08 19:07] VITALS: BP 131/66; PULSE 92; TEMP 98.7
--- NOTE | 2019-05-08 22:00 | NUR ---
REPORT RECEIVED FROM DAY SHIFT NURSE. PATIENT REQUESTED/GIVEN PAIN MED, REFUSED FOR SCHEDULED MEDICATED OINTMENT TO BE APPLIED AT THIS TIME. REPORTS UP TO BATHROOM WITH NO PROBLEMS. CALL LIGHT WITHIN REACH.
--- NOTE | 2019-05-09 01:31 | NUR ---
RESTING WITH EYES CLOSED, DOES NOT AWAKEN WHEN ROOM ENTERED. BREATHING NONLABORED/EVEN. CALL LIGHT WITHIN REACH.
--- NOTE | 2019-05-09 03:32 | NUR ---
FAXED PERTINENT RECORDS TO DR Mara SOLIS IN [facility]: OP VASCULAR SURGERY CONSULT.
[2019-05-09 05:41] VITALS: BP 136/76; PULSE 89; TEMP 98.3
[2019-05-09 07:16] LABS: INR 2.5 (0.8-3.0); PROTHROMBIN TIME 29.8 SECONDS (9.7-12.8)
--- NOTE | 2019-05-09 07:35 | NUR ---
PATIENT UP INDEPENDENT IN ROOM, RESTING IN BED WHILE EATING BREAKFAST DURING SHIFT REPORT TO DAY NURSE.
--- NOTE | 2019-05-09 08:15 | NUR ---
Bedside report from BILL Peng. Pt mk mod I in rm/parikh with walker. Sat up in bed for breakfast, to chair for meds this morning.
--- NOTE | 2019-05-09 08:51 | NUR ---
Reynold wraps to BLE with heel protectors after aquaphor applied
[2019-05-09 15:54] VITALS: BP 128/62; PULSE 95; TEMP 98.4
--- NOTE | 2019-05-09 16:21 | NUR ---
Pt mk mod I in rm/parikh with walker, gripper socks and myriam wraps/heel protectors intact. BLE elevated in chair.
--- NOTE | 2019-05-09 16:33 | NUR ---
Torch Shearer faxed signed order for a front wheeled walker to [facility]. SW to send supporting financial documents to [facility] once received from [employer] Financial Counselor. [facility] and was advised that since patient is Medicaid pending he would be billed out of pocket. DANISH contacted [facility] who advised SW would need to fax completed [facility] Financial Assistance application with discharge orders if patient chose to receive therapy there. DANISH met with patient who expressed he would like to have his appointments scheduled with [facility]. DANISH provided update to RNLeidy.
--- NOTE | 2019-05-09 17:25 | NUR ---
Pt dislikes chicken and pasta, eating [employer] instead.
--- NOTE | 2019-05-09 19:39 | NUR ---
Bedside report to Marcio RN. Pt was bedresting with BLE myriam wraps intact. Call lt in reach, denies needs at this time. Doroteo mod I in /jl w/ sirena
--- NOTE | 2019-05-09 20:00 | NUR ---
RESTING IN BED DURING SHIFT CHANGE REPORT FROM DAY SHIFT NURSE. REPORTS WANTING PAIN MEDS WITH HS MEDS TONIGHT. REPORTS PAIN TO RIGHT FOOT/KNEE AND LEFT ANKLE. UP INDEP IN ROOM AND CARDONA. TO BE DISMISSED TOMORROW.
--- NOTE | 2019-05-10 00:55 | NUR ---
PATIENT RESTING WITH EYES CLOSED, DOES NOT AWAKEN WHEN ROOM ENTERED. BREATHING NONLABORED/EVEN.
[2019-05-10 05:17] VITALS: BP 136/74; PULSE 89; TEMP 98.2
[2019-05-10 06:17] LABS: INR 2.3 (0.8-3.0); PROTHROMBIN TIME 27.3 SECONDS (9.7-12.8)
--- NOTE | 2019-05-10 07:18 | NUR ---
PATIENT UP IN CHAIR FOR BREAKFAST DURING SHIFT CHANGE REPORT TO DAY SHIFT NURSE. PATIENT UP MOD INDEP IN ROOM WITH NO PROBLEMS
[2019-05-10] MEDS ORDERED: CEFTRIAXON2 GM/50 ML IV (07:27)
[2019-05-10] MEDS ORDERED: NOVLOG SQ (07:30)
[2019-05-10] MEDS ORDERED: NOVOLOG 100U100 U/M1 SQ (07:33)
[2019-05-10] MEDS ORDERED: NORCO 325 MG-7.1 TAB PO (07:33)
[2019-05-10] MEDS ORDERED: LEVEMIR100 U/ML SQ (07:33)
[2019-05-10] MEDS ORDERED: LASIX 20MG TABL20 MG PO (07:33)
[2019-05-10] MEDS ORDERED: PROTONIX 40MG T40 MG PO (07:33)
[2019-05-10] MEDS ORDERED: FERROUS SU325 MG/TAB PO (07:33)
[2019-05-10] MEDS ORDERED: PROAIR HFA0.09 MG/AC IH (07:33)
[2019-05-10] MEDS ORDERED: COUMADIN 1MG1 MG/TAB PO (07:36)
[2019-05-10] MEDS ORDERED: COUMADIN 5MG5 MG/TAB PO (07:36)
--- NOTE | 2019-05-10 08:56 | NUR ---
Bedside report from BILL Peng. Pt mk mod I in rm/parikh with walker. Applied aquaphor oint to BLE and heel protectors and wrapped with myriam: Left to under knee, R to above knee. Pulses intact. Left heel healed, callouses around heel/feet flaking in large pieces.
[2019-05-10] MEDS ORDERED: ZESTRIL40 MG PO (10:29)
[2019-05-10] MEDS ORDERED: AQUAPHOR HEALING41% TP (10:29)
--- NOTE | 2019-05-10 15:36 | NUR ---
Pt discharged at this time.
--- NOTE | 2019-05-10 16:21 | NUR ---
Personal Financial Planner coordinated with Leidy KHAN and [facility] to obtain medication voucher for patient. SW obtained patient signature on voucher and placed voucher on patient chart. SW spoke with patient about setting up primary care at [facility] as he will need assistance with obtaining medications after his 30 day supply from medication voucher is used up. Patient is still medicaid pending and also states he plans to meet with the [facility] on Monday. Patient agreed to setting up primary care at [facility] in [place]. DANISH contacted [facility] and made patient initial appointment for 05/17 @ 12:00 (patient to arrive at 11:30 to complete initial paperwork). DANISH provided appointment to Leidy KHAN. DANISH faxed patient progress notes to [facility] and provided demographic information. DANISH contacted [facility] to cancel follow up appointment with Dr. Mcleod and explained patient need to access primary care services from the [facility]. DANISH confirmed with patient that front wheeled walker was delivered to his room. DANISH faxed discharge orders and copy of financial assistance application to the [facility] and patient to begin outpatient IV antibiotics 05/11. Patient to discharge today with daughter, Jennifer providing transportation.
--- NOTE | 2019-05-10 21:01 | NUR ---
Printed pt health summary, discharge home med list, and discharge summary and reviewed with pt. His family was waiting in the car for him, he declined this nurse reviewing info with family. Stressed importance of f/u appts. Reviewed med list and provided printed prescriptions and med voucher filled out by DANISH Boogie for pt to obtain meds from [facility]. Called prescriptions for zestril and aquaphor ointment to [facility]. Belongings gathered by MARRY Llamas, pt and family. Pt transported via wheelchair by MARRY Llamas for ride home in private vehicle, including pt's walker, glasses, knee brace, clothes, two pairs of shoes and cell phone. See copy of med list with handwritten corrections, and SSI order. Pt denied any questions.
--- NOTE | 2019-05-10 21:06 | NUR ---
Faxed Express Unit: face sheet, order, PICC Physician Discharge Order, and PICC home care instructions. Received "OK" fax receipts. Faxed Dr. Prince, Vascular Surgery: discharge summary. Received "OK" fax receipt. Faxed Wound Care and Dr. Hitchcock, ID: Face sheet, H&P, Progress note, ID consult note, and DC summary. Received "OK" fax receipt. Faxed [facility] PT: Face sheet, PT Order, Last PT notes, H&P, progress note, and discharge summary. Received "OK" fax receipt. Faxed Dr. Del Rio, GI: Face sheet, H&P, Progress note, DC summary. Faxed [facility], SHELIA: Face sheet, H&P, Progress Note, DC summary.
--- NOTE | 2019-05-10 21:26 | NUR ---
Received "OK" fax receipt from Dr. Del Rio's office.
--- NOTE | 2019-05-10 21:32 | NUR ---
Received "OK" fax receipt from SHELIA Atkinson
== END 2019-05-10 15:30 | disposition home or self-care (01) | DRG 947 ==
PROVIDERS: ADMIT Internal Medicine
DX: R53.81 Other malaise (principal); J18.1 Lobar pneumonia, unspecified organism; J96.01 Acute respiratory failure with hypoxia; E11.10 Type 2 diabetes mellitus with ketoacidosis without coma; I26.99 Other pulmonary embolism without acute cor pulmonale; R65.20 Severe sepsis without septic shock; A41.01 Sepsis due to Methicillin susceptible Staphylococcus aureus; K22.10 Ulcer of esophagus without bleeding; E87.1 Hypo-osmolality and hyponatremia; I82.401 Acute embolism and thrombosis of unspecified deep veins of right lower extremity; N17.9 Acute kidney failure, unspecified; I12.9 Hypertensive chronic kidney disease with stage 1 through stage 4 chronic kidney disease, or unspecified chronic kidney disease; N18.9 Chronic kidney disease, unspecified; F17.210 Nicotine dependence, cigarettes, uncomplicated; G72.9 Myopathy, unspecified; D64.9 Anemia, unspecified; K29.70 Gastritis, unspecified, without bleeding; R91.1 Solitary pulmonary nodule; D47.3 Essential (hemorrhagic) thrombocythemia; Z89.021 Acquired absence of right finger(s)
CPT/HCPCS: 99231-AI; 99232-AI; 99239; J0690; J0696; J1815

== ENCOUNTER 2019-05-27 10:30 | Outpatient (RCR) | payer SELFPAY ==
[~2019-05-27 10:30] MED LIST changes: +AQUAPHOR HEALING41% TP; +CEFTRIAXON2 GM/50 ML IV; +COUMADIN 1MG1 MG/TAB PO; +FERROUS SU325 MG/TAB PO; +LEVEMIR100 U/ML SQ; +NOVLOG SQ; +NOVOLOG 100U100 U/M1 SQ; +PROAIR HFA0.09 MG/AC IH; +ZESTRIL40 MG PO
[2019-06-11] MEDS ORDERED: PERCOCET 325 MG1 TA2 PO (08:45)
[2019-07-01] MEDS ORDERED: FERROUS SU325 MG/TAB PO (13:48)
[2019-07-01] MEDS ORDERED: PROTONIX 40MG T40 MG PO (13:49)
[2019-07-01] MEDS ORDERED: NOVOLOG 100U100 U/M1 SQ (13:50)
[2019-07-01] MEDS ORDERED: LEVEMIR SQ (13:51)
[2019-07-01] MEDS ORDERED: PROAIR HFA0.09 MG/AC IH (13:51)
[2019-07-01] MEDS ORDERED: LASIX 20MG TABL20 MG PO (13:52)
[2019-07-01] MEDS ORDERED: COUMADIN 77.5 MG/TAB PO (13:53)
[2019-07-01] MEDS ORDERED: NOVLOG SQ (13:54)
[2019-07-01] MEDS ORDERED: CEFTRIAXON2 GM/50 ML IV (13:57)
[2019-07-03] MEDS ORDERED: NORCO 325 MG-7.1 TAB PO (06:10)
[2019-07-12] MEDS ORDERED: NORVASC 10MG10 MG PO (14:45)
[2019-07-12] MEDS ORDERED: NORCO 325 MG-7.1 TAB PO (15:02)
[2019-07-12] MEDS ORDERED: DAZIDOX10 MG PO (15:03)
[2019-07-12] MEDS ORDERED: COUMADIN 1010 MG/TAB PO (15:04)
== END 2019-08-14 | disposition home or self-care (01) ==
LOC: WSPT
DX: G72.81 Critical illness myopathy (principal)

== ENCOUNTER 2019-06-02 08:41 | Emergency (ER) | payer OTHER ==
[~2019-06-02] VITALS: Ht 182.9 cm; Wt 95.0 kg
[2019-06-02 08:56] VITALS: TEMP 97.8
[2019-06-02 09:54] LABS: BASO # 0.1 (0.0-0.2); BASO % 0.8 % (0.0-2.0); EOS # 0.3 (0.0-0.7); EOS % 3.4 % (0-4.0); GRAN # 4.4 (1.4-6.5); GRAN % 51.8 % (42.2-75.2); LYMPH % 35.9 % (20.0-51.0); MEAN CELL VOLUME 86 fl (80.0-100.0); MEAN CORPUSCULAR HGB CONC 32 g/dl (33.0-37.0); MONO # 0.6 (0.1-0.6); MONO % 7.6 % (1.7-9.3); PLATELET COUNT 400 K/mm3 (130-400); RED BLOOD COUNT 2.61 M/mm3 (4.20-5.60); REDCELL DISTRIBUTION WIDTH-CV 13.5 % (11.5-14.5)
[2019-06-02 10:16] LABS: HEMATOCRIT 22.5 % (42.0-52.0); HEMOGLOBIN 7.1 g/dl (13.5-18.0); MEAN CORPUSCULAR HEMOGLOBIN 27 pg (27.0-31.0)
[2019-06-02 10:17] LABS: ERYTHROCYTE SEDIMENTATION RATE > 140 mm/hr (0-30)
[2019-06-02 10:35] LABS: SYNOVIAL FL. MONONUCLEAR 18.4 % (0-75); SYNOVIAL FLUID RBC 317000 /mm3 (0-0); SYNOVIAL FLUID WBC 37126 /mm3 (200-600)
[2019-06-02 10:39] LABS: SYNOVIAL FLUID APPEARANCE TURBID; SYNOVIAL FLUID COLOR RED
[2019-06-02 11:00] LABS: INR 2.8 (0.8-3.0); PROTHROMBIN TIME 33.8 SECONDS (9.7-12.8)
[2019-06-02 12:47] VITALS: BP 168/102; PULSE 92
== END 2019-06-02 12:47 | disposition home or self-care (01) ==
LOC: COL.ER 08:41
PROVIDERS: Emergency Medicine
DX: M25.461 Effusion, right knee (principal); D64.9 Anemia, unspecified; Z79.01 Long term (current) use of anticoagulants; Z79.4 Long term (current) use of insulin

== ENCOUNTER 2019-06-04 08:30 | Outpatient (RCR) | payer OTHER ==
[2019-05-11 08:45] VITALS: BP 135/70; PULSE 95; TEMP 98.1
[2019-05-12 08:30] VITALS: BP 149/79; PULSE 96; TEMP 97.5
--- NOTE | 2019-05-13 08:50 | NUR ---
patient in the express unit. With sterile technique right upper arm PICC dressing change done with insertion site cleansed with ChloraPrep 1, chlorhexidine impregnated disc applied, skin prep, StatLock, and Tegaderm applied. No signs or symptoms of IV complications noted. No concerns voiced. Patient to continue with cares in the express unit.
[2019-05-13 08:57] VITALS: BP 114/63; PULSE 99; TEMP 97.9
[2019-05-14 08:38] LABS: HEMATOCRIT 25.3 % (42.0-52.0); HEMOGLOBIN 8.1 g/dl (13.5-18.0); MEAN CELL VOLUME 88 fl (80.0-100.0); MEAN CORPUSCULAR HEMOGLOBIN 28 pg (27.0-31.0); MEAN CORPUSCULAR HGB CONC 32 g/dl (33.0-37.0); MEAN PLATELET VOLUME 7.7 fl (7.4-10.4); PLATELET COUNT 478 K/mm3 (130-400); RED BLOOD COUNT 2.87 M/mm3 (4.20-5.60); REDCELL DISTRIBUTION WIDTH-CV 13.1 % (11.5-14.5)
[2019-05-14 08:42] LABS: INR 1.8 (0.8-3.0)
[2019-05-14 08:45] VITALS: BP 140/81; PULSE 94; TEMP 98
[2019-05-14 08:55] LABS: C-REACTIVE PROTEIN 1.8 mg/dL (0.0-0.9); CREATININE, serum 1.13 (0.66-1.25); POTASSIUM 5.3 mmol/L (3.4-5.0)
[2019-05-15 08:29] VITALS: BP 150/74; PULSE 98; TEMP 97.3
[2019-05-16 08:38] VITALS: BP 164/73; PULSE 91; TEMP 98.2
[2019-05-17 08:14] VITALS: BP 158/68; PULSE 98; TEMP 97.5
[2019-05-18 08:38] VITALS: BP 167/75; PULSE 109; TEMP 97.9
[2019-05-19 08:41] VITALS: BP 152/78; PULSE 96; TEMP 97.8
[2019-05-20 08:31] VITALS: BP 153/81; PULSE 107; TEMP 98
[2019-05-20 08:44] LABS: BASO # 0.1 (0.0-0.2); BASO % 0.6 % (0.0-2.0); EOS # 0.2 (0.0-0.7); EOS % 2.3 % (0-4.0); GRAN # 4.6 (1.4-6.5); GRAN % 51.5 % (42.2-75.2); LYMPH # 3.5 (1.2-3.4); LYMPH % 38.2 % (20.0-51.0); MEAN CELL VOLUME 86 fl (80.0-100.0); MEAN CORPUSCULAR HGB CONC 32 g/dl (33.0-37.0); MEAN PLATELET VOLUME 7.7 fl (7.4-10.4); MONO # 0.6 (0.1-0.6); MONO % 7.1 % (1.7-9.3); PLATELET COUNT 451 K/mm3 (130-400); RED BLOOD COUNT 3.05 M/mm3 (4.20-5.60); REDCELL DISTRIBUTION WIDTH-CV 13.2 % (11.5-14.5)
[2019-05-20 08:45] LABS: HEMATOCRIT 26.2 % (42.0-52.0); HEMOGLOBIN 8.4 g/dl (13.5-18.0); MEAN CORPUSCULAR HEMOGLOBIN 28 pg (27.0-31.0)
--- NOTE | 2019-05-20 08:45 | NUR ---
PICC intact right upper arm with sterile dressing change done with insertion site cleansed with chloraprep x 1, chlorhexidine impregnated disk applied, skin prep, stat lock, and tegaderm applied. no signs or symptoms of IV complications noted. no concerns voiced. re-wrapped with myriam to protect catheter. to return in am as scheduled. voiced understanding.
[2019-05-20 08:57] LABS: ALANINE AMINOTRANSFERASE < 6 U/L (21-72); ALBUMIN 3.6 gm/dL (3.5-5.0); ALKALINE PHOSPHATASE 131 U/L (50-136); ANION GAP 9 mmol/L (7-16); AST,SGOT 26 U/L (15-37); BILIRUBIN,TOTAL 0.2 mg/dL (0.0-1.0); BLOOD UREA NITROGEN 16 mg/dL (9-20); CALCIUM 9.1 mg/dL (8.4-10.2); CARBON DIOXIDE 26 mmol/L (22-30); CHLORIDE 102 mmol/L (98-107); CREATININE, serum 1.06 (0.66-1.25); GLUCOSE 205 mg/dL (74-106); POTASSIUM 4.9 mmol/L (3.4-5.0); SODIUM 137 mmol/L (137-145); TOTAL PROTEIN 9.2 gm/dL (6.4-8.2)
[2019-05-20 09:16] LABS: ERYTHROCYTE SEDIMENTATION RATE > 140 mm/hr (0-30)
[2019-05-21 08:48] VITALS: BP 141/70; PULSE 93; TEMP 98.2
[2019-05-22 08:29] VITALS: BP 127/71; PULSE 100; TEMP 98.3
[2019-05-23 08:46] VITALS: BP 154/76; PULSE 100; TEMP 98.2
[2019-05-24 08:31] VITALS: BP 175/82; PULSE 95; TEMP 97.7
[2019-05-25 09:36] VITALS: BP 146/66; PULSE 96; TEMP 98.1
[2019-05-26 08:22] VITALS: BP 151/71; PULSE 98; TEMP 97.8
--- NOTE | 2019-05-27 09:00 | NUR ---
PICC intact right upper arm with sterile dressing change done with insertion site cleansed with chloraprep x 1, chlorhexidine impregnated disk applied, skin prep, stat lock, and tegaderm applied. no signs or symptoms of IV complications noted. no concerns voiced. re-wrapped with myriam to protect catheter. to continue with cares in EU. voiced understanding of instructions.
[2019-05-27 09:15] LABS: MEAN CELL VOLUME 87 fl (80.0-100.0); MEAN CORPUSCULAR HGB CONC 32 g/dl (33.0-37.0); MEAN PLATELET VOLUME 7.9 fl (7.4-10.4); PLATELET COUNT 474 K/mm3 (130-400); RED BLOOD COUNT 3.11 M/mm3 (4.20-5.60); REDCELL DISTRIBUTION WIDTH-CV 13.4 % (11.5-14.5)
[2019-05-27 09:16] LABS: HEMOGLOBIN 8.6 g/dl (13.5-18.0); MEAN CORPUSCULAR HEMOGLOBIN 28 pg (27.0-31.0)
[2019-05-27 09:19] VITALS: BP 144/86; PULSE 96; TEMP 98.6
[2019-05-27 09:23] LABS: INR 2.4 (0.8-3.0); PROTHROMBIN TIME 28.2 SECONDS (9.7-12.8)
[2019-05-27 09:32] LABS: C-REACTIVE PROTEIN 1.9 mg/dL (0.0-0.9); CALCIUM 9.1 mg/dL (8.4-10.2); CREATININE, serum 0.94 (0.66-1.25); MAGNESIUM 1.6 mg/dL (1.6-2.3); POTASSIUM 4.2 mmol/L (3.4-5.0)
[2019-05-28 08:51] VITALS: BP 177/78; PULSE 94; TEMP 97.5
[2019-05-29 08:38] VITALS: BP 148/76; PULSE 101; TEMP 98.3
[2019-05-30 08:49] VITALS: BP 155/75; PULSE 98; TEMP 98
[2019-05-31 08:28] VITALS: BP 170/80; PULSE 95; TEMP 97.8
[2019-06-01 08:43] VITALS: BP 157/85; PULSE 97; TEMP 98.2
[2019-06-02 08:19] VITALS: BP 181/75; PULSE 101; TEMP 98.1
[2019-06-02 08:42] VITALS: BP 147/77; PULSE 95
[2019-06-03 08:39] LABS: BASO # 0.1 (0.0-0.2); BASO % 0.9 % (0.0-2.0); EOS # 0.3 (0.0-0.7); EOS % 3.5 % (0-4.0); GRAN # 4.5 (1.4-6.5); LYMPH # 3.8 (1.2-3.4); LYMPH % 40.5 % (20.0-51.0); MEAN CELL VOLUME 86 fl (80.0-100.0); MEAN CORPUSCULAR HGB CONC 32 g/dl (33.0-37.0); MONO # 0.5 (0.1-0.6); MONO % 5.6 % (1.7-9.3); PLATELET COUNT 465 K/mm3 (130-400); RED BLOOD COUNT 3.06 M/mm3 (4.20-5.60); REDCELL DISTRIBUTION WIDTH-CV 13.5 % (11.5-14.5)
[2019-06-03 08:41] LABS: HEMATOCRIT 26.3 % (42.0-52.0); HEMOGLOBIN 8.4 g/dl (13.5-18.0); MEAN CORPUSCULAR HEMOGLOBIN 27 pg (27.0-31.0)
[2019-06-03 08:42] LABS: INR 2.7 (0.8-3.0)
[2019-06-03 08:48] VITALS: BP 152/83; PULSE 93; TEMP 97.7
[2019-06-03 09:06] LABS: ALBUMIN 3.5 gm/dL (3.5-5.0); BILIRUBIN,TOTAL 0.2 mg/dL (0.0-1.0); C-REACTIVE PROTEIN 1.6 mg/dL (0.0-0.9); CALCIUM 8.8 mg/dL (8.4-10.2); CREATININE, serum 0.98 (0.66-1.25); POTASSIUM 4.7 mmol/L (3.4-5.0); TOTAL PROTEIN 8.8 gm/dL (6.4-8.2)
[2019-06-03 12:28] LABS: ERYTHROCYTE SEDIMENTATION RATE > 140 mm/hr (0-30)
[~2019-06-04] VITALS: Ht 182.9 cm; Wt 98.8 kg
[2019-06-04 08:26] VITALS: BP 153/72; PULSE 100; TEMP 97.8
== END 2019-06-06 07:57 | disposition home or self-care (01) ==
LOC: EUO 08:30
PROVIDERS: Internal Medicine; Nurse Practitioner
DX: A41.9 Sepsis, unspecified organism (principal); A49.01 Methicillin susceptible Staphylococcus aureus infection, unspecified site; I82.401 Acute embolism and thrombosis of unspecified deep veins of right lower extremity
CPT/HCPCS: J0696

== ENCOUNTER → 2019-06-14 | Outpatient (CLI) | payer OTHER ==
[~2019-06-14] MED LIST changes: +PERCOCET 325 MG1 TA2 PO
== END ==
LOC: COL.RAD 11:53
DX: M25.461 Effusion, right knee (principal); R60.0 Localized edema; M00.9 Pyogenic arthritis, unspecified

== ENCOUNTER → 2019-06-20 | Outpatient (CLI) | payer OTHER | LOC: ZCOL.LAB 17:08 | DX: A49.01 Methicillin susceptible Staphylococcus aureus infection, unspecified site (principal) ==

== ENCOUNTER 2019-06-21 11:29 | Inpatient (IN) | payer OTHER ==
[~2019-06-21] VITALS: Ht 182.9 cm; Wt 95.2 kg
[2019-07-01] VITALS (8 sets, daily range): BP systolic 139–159; BP diastolic 70–80; PULSE 86–100; TEMP 98.1–98.4
[2019-07-01 13:31] LABS: INR 1.1 (0.8-3.0); PROTHROMBIN TIME 12.6 SECONDS (9.7-12.8)
--- NOTE | 2019-07-01 13:41 | NUR ---
TO RM 8 PER WC, TRANSFERED SELF TO BED. ALERT ORIENTED X3, VERBALIZED UNDERSTANDING AND SIGNED CONSENT. PATIENT TAKEN FOR A BLOCK BY Estefani GOLDSTEIN CRNA
[2019-07-01] MEDS ORDERED: FERROUS SU325 MG/TAB PO (13:48)
[2019-07-01] MEDS ORDERED: PROTONIX 40MG T40 MG PO (13:49)
[2019-07-01] MEDS ORDERED: NOVOLOG 100U100 U/M1 SQ (13:50)
[2019-07-01] MEDS ORDERED: PROAIR HFA0.09 MG/AC IH (13:51)
[2019-07-01] MEDS ORDERED: LEVEMIR SQ (13:51)
[2019-07-01] MEDS ORDERED: LASIX 20MG TABL20 MG PO (13:52)
[2019-07-01] MEDS ORDERED: COUMADIN 77.5 MG/TAB PO (13:53)
[2019-07-01] MEDS ORDERED: NOVLOG SQ (13:54)
[2019-07-01] MEDS ORDERED: CEFTRIAXON2 GM/50 ML IV (13:57)
--- NOTE | 2019-07-01 16:20 | NUR ---
PATIENT ADMITED INTO ROOM 343 POST OP RIGHT AKA. RLE DRESSING IS CD&I WITH ACEWRAP. RLE ELEVATED ON PILLOW WITH ICE PACK INPLACE. LLE NOTED +2 EDEMA WITH +1 PEDAL PULSE. NO C/O PAIN. PATIENT REPORTS HE IS HUNGRY. BS IN PACU WAS 72. PATIENT TOOK HIS LONG ACTING INSULIN THIS AM. CALLED AND GOT DIET ORDER FROM ORTHO, PATIENT EATTING. NO C/O N/V. IV FLUIDS INFUSING INTO RIGHT UPPER ARM PICC. HEAD TO TOE WNL. FAMILY AT BEDSIDE. CALL LIGHT IN REACH.
[2019-07-02 00:28] VITALS: BP 174/85; PULSE 90; TEMP 98.2
--- NOTE | 2019-07-02 04:00 | NUR ---
Patient called for pain medication and PRN [place] was administered. This was not effective. PRN Morphine administered and patient continued to rate pain 10/10 to right leg. VASU Victor notified and ordered Oxycodone 5mg 1-2 tabs every 4 hours as needed for breakthrough pain. This was administered and upon reassessment patient rated pain 9/10. PRN Morphine administered at this time. Upon reassessment patient stated pain 6/10. Pain medication has been given as requested with moderate relief. Patient has been asleep since about 0200 since last medication was given. Dressing to right AKA reinforced with ABD pad and myriam wrap d/t small amount of bloody drainage coming through original dressing. Will continue to provide PRN pain medication.
[2019-07-02 04:56] VITALS: BP 160/82; PULSE 84; TEMP 98
[2019-07-02 07:18] LABS: BASO # 0.1 (0.0-0.2); BASO % 0.6 % (0.0-2.0); EOS # 0.1 (0.0-0.7); GRAN # 5.3 (1.4-6.5); GRAN % 60.1 % (42.2-75.2); HEMATOCRIT 24.8 % (42.0-52.0); HEMOGLOBIN 7.8 g/dl (13.5-18.0); LYMPH # 2.7 (1.2-3.4); LYMPH % 30.5 % (20.0-51.0); MEAN CELL VOLUME 82 fl (80.0-100.0); MEAN CORPUSCULAR HEMOGLOBIN 26 pg (27.0-31.0); MEAN CORPUSCULAR HGB CONC 32 g/dl (33.0-37.0); MEAN PLATELET VOLUME 8.4 fl (7.4-10.4); MONO # 0.7 (0.1-0.6); MONO % 7.5 % (1.7-9.3); PLATELET COUNT 445 K/mm3 (130-400); RED BLOOD COUNT 3.02 M/mm3 (4.20-5.60); REDCELL DISTRIBUTION WIDTH-CV 13.8 % (11.5-14.5)
[2019-07-02 07:22] LABS: INR 1.1 (0.8-3.0); PROTHROMBIN TIME 12.5 SECONDS (9.7-12.8)
[2019-07-02 07:28] LABS: ALANINE AMINOTRANSFERASE < 6 U/L (21-72); ALBUMIN 3.3 gm/dL (3.5-5.0); ALKALINE PHOSPHATASE 110 U/L (50-136); ANION GAP 10 mmol/L (7-16); AST,SGOT 32 U/L (15-37); BILIRUBIN,TOTAL 0.2 mg/dL (0.0-1.0); BLOOD UREA NITROGEN 19 mg/dL (9-20); CALCIUM 8.5 mg/dL (8.4-10.2); CARBON DIOXIDE 25 mmol/L (22-30); CHLORIDE 99 mmol/L (98-107); CREATININE, serum 0.83 (0.66-1.25); GLUCOSE 155 mg/dL (74-106); SODIUM 134 mmol/L (137-145)
[2019-07-02 07:47] VITALS: BP 152/69; PULSE 90; TEMP 97
[2019-07-02 11:04] VITALS: BP 154/74; PULSE 83; TEMP 98.4
[2019-07-02 15:38] VITALS: BP 145/68; PULSE 87; TEMP 98.4
--- NOTE | 2019-07-02 16:41 | NUR ---
Traffic Incident Management Manager met with patient to complete initial intake. Patient lives in [place] with his son Zion (ph#[phone]) and daughter in law Lisseth. Patient sees Dr. Hendricks for primary care. Patient discharged from [facility] on 05/10/2019 and had follow up appointments set up at [facility] as patient is Medicaid pending. Patient reports [facility] only has a PA and his care needed to be managed by a physician so he returned to his original PCP, Dr. Hendricks. Patient obtains his medications from [facility] or wherever he can find the least expensive prices. Patient has a walker and crutches at home. Patient states Dr. Hernandes wrote an order for a wheelchair and his daughter Jennifer (ph#[phone]) has the order. Patient reports Physical Therapist, Rafaela is recommending Inpatient Rehab and he is in agreeance. Patient reports he is still waiting to hear back from a lady with the [facility] on establishing benefits. Patient also has Advance Directives located in EMR. Following intake, DANISH contacted Yessenia CHANNING HOME Director who could accept referral clinically but not with patient still being Medicaid pending. DANISH contacted Keyur Financial Counselor who advised he called [facility] on 07/01/19 and was advised a claims adjuster supervisor would be reviewing patient's case. DANISH contacted patient's daughter, Jennifer who reports she dropped off order for wheelchair to [facility] and should be able to pick it up soon. Jennifer confirmed they were waiting to hear back from a person with the [facility] on establishing benefits. DANISH offered to contact this person to follow and Jennifer stated she didn't have the card on her at this time. DANISH will continue to follow to ensure safe discharge.
--- NOTE | 2019-07-02 18:00 | NUR ---
Patients pain has been hard to get under control today but it a lot better than this morning. Morphine given twice. We stayed on top of taking the medications for pain before pain got out of hand. No complaints of nausea. No other changes at this time. Call light within reach.
--- NOTE | 2019-07-02 20:40 | NUR ---
Pt. laying in bed at this time. Pt. is A&OX3, assessment complete. PICC to rt. upper arm. Pt. reported pain at an 8. Gave pain meds per orders. Dressing to Rt. BKA CDI. Pt. denies further needs, call light within reach.
[2019-07-02 21:40] VITALS: BP 135/76; PULSE 93; TEMP 98.2
[2019-07-03 00:23] VITALS: BP 146/69; PULSE 92; TEMP 97.9
[2019-07-03 05:50] LABS: BASO # 0.1 (0.0-0.2); BASO % 0.7 % (0.0-2.0); EOS # 0.3 (0.0-0.7); GRAN # 4.1 (1.4-6.5); GRAN % 50.1 % (42.2-75.2); LYMPH % 36.7 % (20.0-51.0); MEAN CELL VOLUME 82 fl (80.0-100.0); MEAN CORPUSCULAR HGB CONC 32 g/dl (33.0-37.0); MEAN PLATELET VOLUME 8.2 fl (7.4-10.4); MONO # 0.8 (0.1-0.6); MONO % 9.1 % (1.7-9.3); PLATELET COUNT 431 K/mm3 (130-400); RED BLOOD COUNT 2.93 M/mm3 (4.20-5.60)
[2019-07-03 05:51] LABS: HEMATOCRIT 24.1 % (42.0-52.0); HEMOGLOBIN 7.6 g/dl (13.5-18.0); MEAN CORPUSCULAR HEMOGLOBIN 26 pg (27.0-31.0)
[2019-07-03 05:52] LABS: PROTHROMBIN TIME 11.5 SECONDS (9.7-12.8)
[2019-07-03 06:05] LABS: CALCIUM 8.4 mg/dL (8.4-10.2); CREATININE, serum 1.15 (0.66-1.25); POTASSIUM 4.8 mmol/L (3.4-5.0)
[2019-07-03] MEDS ORDERED: NORCO 325 MG-7.1 TAB PO (06:10)
[2019-07-03 07:50] VITALS: BP 135/63; PULSE 95; TEMP 98.5
--- NOTE | 2019-07-03 09:19 | NUR ---
Initial visit; Patient thanked Inspector Outside Production for looking in on him and keeping him in her prayers.
--- NOTE | 2019-07-03 09:44 | NUR ---
Ballast Inspector was notified by Yessenia, IPR Director that they can accept patient, possibly even today. Yessenia advised she would meet with patient and SW contacted patient's daughter Jennifer to provide update.
[2019-07-03 11:39] VITALS: BP 145/61; PULSE 95; TEMP 98.7
--- NOTE | 2019-07-03 14:45 | NUR ---
Patient has been doing well today. Pain has been controlled today. No Morphine given. Patient is moving to IPR. Dressing to right AKA remains C/D/I. Patient has been doing well working with PT. No other changes at this time. Patient is discharging with PICC line in place.
== END 2019-07-03 14:48 | DRG 617 ==
LOC: JCC 07-01 10:00 → INPTSU 07-01 12:15 → JCC 07-01 13:30 → SURG 07-01 15:00 → JCC 07-01 15:00 → SURG 07-01 16:30
PROVIDERS: Internal Medicine; Nurse Anesthetist, Certified Registered; Nurse Practitioner Family; ADMIT Orthopaedic Surgery
PROC: 0Y6C0Z3 Detachment at Right Upper Leg, Low, Open Approach (ICD-10-PCS; principal; 2019-07-01 15:00)
DX: E11.69 Type 2 diabetes mellitus with other specified complication (principal); M86.9 Osteomyelitis, unspecified; K22.10 Ulcer of esophagus without bleeding; I10 Essential (primary) hypertension; E78.5 Hyperlipidemia, unspecified; R91.8 Other nonspecific abnormal finding of lung field; F32.9 Major depressive disorder, single episode, unspecified; K29.70 Gastritis, unspecified, without bleeding; D64.9 Anemia, unspecified; E11.9 Type 2 diabetes mellitus without complications; Z79.4 Long term (current) use of insulin; Z79.01 Long term (current) use of anticoagulants; Z86.711 Personal history of pulmonary embolism; Z86.718 Personal history of other venous thrombosis and embolism; Z89.412 Acquired absence of left great toe
CPT/HCPCS: 99223; 99233-AI; 99239; J0696; J1815; J2250; J2270; J2405; J2704; J2795; J3010; J7030

== ENCOUNTER → 2019-06-27 | Outpatient (CLI) | payer OTHER ==
[~2019-06-27] MED LIST changes: +COUMADIN 77.5 MG/TAB PO; +LEVEMIR SQ
== END ==
LOC: ZCOL.LAB 10:32
DX: M00.9 Pyogenic arthritis, unspecified (principal); R65.20 Severe sepsis without septic shock

== ENCOUNTER 2019-07-01 08:00 | Outpatient (RCR) | payer OTHER ==
[2019-06-06 15:04] VITALS: BP 148/72; PULSE 97; TEMP 98.5
[2019-06-07 08:58] VITALS: BP 151/74; PULSE 95; TEMP 98.2
[2019-06-08 08:30] VITALS: BP 171/73; PULSE 104; TEMP 98
--- NOTE | 2019-06-09 08:20 | NUR ---
Pt reports pain 10/10 in R knee. R knee red and swollen. Pt has previously been wheening of of his walker but is now unable to walk with a walker. Pt refused to go to ER for evaluation. Pt will call Dr. Hernandes on Monday to discuss MRI.
[2019-06-09 08:25] VITALS: BP 168/84; PULSE 92; TEMP 98.4
[2019-06-10 08:42] VITALS: BP 168/77; PULSE 92; TEMP 98.2
[2019-06-10 09:00] LABS: BASO # 0.1 (0.0-0.2); BASO % 0.5 % (0.0-2.0); EOS # 0.2 (0.0-0.7); EOS % 2.4 % (0-4.0); GRAN # 5.4 (1.4-6.5); GRAN % 56.4 % (42.2-75.2); LYMPH # 3.1 (1.2-3.4); LYMPH % 32.4 % (20.0-51.0); MEAN CELL VOLUME 86 fl (80.0-100.0); MEAN CORPUSCULAR HGB CONC 31 g/dl (33.0-37.0); MEAN PLATELET VOLUME 8.2 fl (7.4-10.4); MONO # 0.8 (0.1-0.6); MONO % 7.9 % (1.7-9.3); PLATELET COUNT 465 K/mm3 (130-400); RED BLOOD COUNT 2.95 M/mm3 (4.20-5.60); REDCELL DISTRIBUTION WIDTH-CV 13.9 % (11.5-14.5)
[2019-06-10 09:01] LABS: HEMATOCRIT 25.3 % (42.0-52.0); HEMOGLOBIN 7.8 g/dl (13.5-18.0); MEAN CORPUSCULAR HEMOGLOBIN 26 pg (27.0-31.0)
[2019-06-10 09:29] LABS: ERYTHROCYTE SEDIMENTATION RATE > 140 mm/hr (0-30)
[2019-06-10 09:37] LABS: ALBUMIN 3.7 gm/dL (3.5-5.0); BILIRUBIN,TOTAL 0.2 mg/dL (0.0-1.0); C-REACTIVE PROTEIN 3.7 mg/dL (0.0-0.9); CALCIUM 8.8 mg/dL (8.4-10.2); CREATININE, serum 0.92 (0.66-1.25); POTASSIUM 4.2 mmol/L (3.4-5.0); TOTAL PROTEIN 8.6 gm/dL (6.4-8.2)
[2019-06-11 08:46] VITALS: BP 167/73; PULSE 102; TEMP 98
[2019-06-12 08:36] VITALS: BP 153/73; PULSE 91; TEMP 98.4
[2019-06-13 09:25] VITALS: BP 153/78; PULSE 91; TEMP 98.1
[2019-06-14 10:15] VITALS: BP 162/71; PULSE 93; TEMP 97.9
[2019-06-15 08:30] VITALS: BP 181/88; PULSE 98; TEMP 97.6
[2019-06-16 08:30] VITALS: BP 138/70; PULSE 76; TEMP 97.7
[2019-06-17 09:00] LABS: BASO # 0.1 (0.0-0.2); BASO % 0.7 % (0.0-2.0); EOS # 0.2 (0.0-0.7); EOS % 2.2 % (0-4.0); GRAN % 54.9 % (42.2-75.2); LYMPH # 3.1 (1.2-3.4); LYMPH % 34.3 % (20.0-51.0); MEAN CELL VOLUME 84 fl (80.0-100.0); MEAN CORPUSCULAR HGB CONC 31 g/dl (33.0-37.0); MONO # 0.7 (0.1-0.6); MONO % 7.7 % (1.7-9.3); PLATELET COUNT 539 K/mm3 (130-400); RED BLOOD COUNT 3.21 M/mm3 (4.20-5.60)
[2019-06-17 09:10] LABS: HEMATOCRIT 27.1 % (42.0-52.0); HEMOGLOBIN 8.5 g/dl (13.5-18.0); MEAN CORPUSCULAR HEMOGLOBIN 26 pg (27.0-31.0)
[2019-06-17 09:13] LABS: ALANINE AMINOTRANSFERASE < 6 U/L (21-72); ALBUMIN 3.8 gm/dL (3.5-5.0); ALKALINE PHOSPHATASE 137 U/L (50-136); ANION GAP 8 mmol/L (7-16); AST,SGOT 22 U/L (15-37); BILIRUBIN,TOTAL 0.2 mg/dL (0.0-1.0); BLOOD UREA NITROGEN 15 mg/dL (9-20); C-REACTIVE PROTEIN 2.1 mg/dL (0.0-0.9); CALCIUM 9.3 mg/dL (8.4-10.2); CARBON DIOXIDE 27 mmol/L (22-30); CHLORIDE 102 mmol/L (98-107); CREATININE, serum 0.91 (0.66-1.25); GLUCOSE 230 mg/dL (74-106); POTASSIUM 4.4 mmol/L (3.4-5.0); SODIUM 137 mmol/L (137-145); TOTAL PROTEIN 9.1 gm/dL (6.4-8.2)
[2019-06-17 09:33] VITALS: BP 154/80; PULSE 91; TEMP 98
[2019-06-17 11:51] LABS: ERYTHROCYTE SEDIMENTATION RATE > 140 mm/hr (0-30)
[2019-06-18 08:45] VITALS: BP 161/83; PULSE 95; TEMP 98.5
[2019-06-19 08:30] VITALS: BP 161/83; PULSE 94; TEMP 98.1
[2019-06-20 08:36] VITALS: BP 165/75; PULSE 93; TEMP 98.4
[2019-06-21 09:25] VITALS: BP 160/74; PULSE 88; TEMP 97.8
[2019-06-24 08:49] LABS: MEAN CELL VOLUME 84 fl (80.0-100.0); MEAN CORPUSCULAR HGB CONC 31 g/dl (33.0-37.0); MEAN PLATELET VOLUME 7.9 fl (7.4-10.4); PLATELET COUNT 507 K/mm3 (130-400); RED BLOOD COUNT 3.32 M/mm3 (4.20-5.60); REDCELL DISTRIBUTION WIDTH-CV 13.8 % (11.5-14.5)
[2019-06-24 08:54] LABS: HEMATOCRIT 27.8 % (42.0-52.0); HEMOGLOBIN 8.5 g/dl (13.5-18.0); MEAN CORPUSCULAR HEMOGLOBIN 26 pg (27.0-31.0)
[2019-06-24 09:03] LABS: ALANINE AMINOTRANSFERASE < 6 U/L (21-72); ALBUMIN 3.7 gm/dL (3.5-5.0); ALKALINE PHOSPHATASE 115 U/L (50-136); ANION GAP 10 mmol/L (7-16); AST,SGOT 21 U/L (15-37); BILIRUBIN,TOTAL 0.2 mg/dL (0.0-1.0); BLOOD UREA NITROGEN 19 mg/dL (9-20); C-REACTIVE PROTEIN 2.2 mg/dL (0.0-0.9); CARBON DIOXIDE 25 mmol/L (22-30); CHLORIDE 103 mmol/L (98-107); CREATININE, serum 0.94 (0.66-1.25); GLUCOSE 389 mg/dL (74-106); POTASSIUM 4.4 mmol/L (3.4-5.0); SODIUM 138 mmol/L (137-145); TOTAL PROTEIN 8.7 gm/dL (6.4-8.2)
[2019-06-24 09:23] VITALS: BP 169/75; PULSE 95; TEMP 97.8
[2019-06-25 08:47] VITALS: BP 149/78; PULSE 96; TEMP 97.6
[2019-06-26 08:27] VITALS: BP 174/82; PULSE 98; TEMP 97.4
[2019-06-27 08:30] VITALS: BP 154/72; PULSE 94; TEMP 98.2
[2019-06-28 08:30] VITALS: BP 189/84; PULSE 89; TEMP 97.6
[2019-06-29 08:23] VITALS: BP 178/80; PULSE 88; TEMP 97.8
[2019-06-30 08:49] VITALS: BP 155/80; PULSE 95; TEMP 97.5
[~2019-07-01] VITALS: Ht 182.9 cm; Wt 98.0 kg
[~2019-07-01 08:00] MED LIST changes: -COUMADIN 77.5 MG/TAB PO; -LEVEMIR SQ
--- NOTE | 2019-07-01 08:15 | NUR ---
Here for cares. with sterile technique right upper arm PICC dressing change done with insertion site cleansed with chloraprep x 1, chlorhexidine impregnated disk applied, skin prep, stat lock, and tegaderm applied. no signs or symptoms of IV complications noted. no concerns voiced. plan is for OR later today. wrapped with myriam to protect catheter.
[2019-07-01 08:30] VITALS: BP 146/74; PULSE 93; TEMP 97.9
[2019-07-01] MEDS ORDERED: FERROUS SU325 MG/TAB PO (13:48)
[2019-07-01] MEDS ORDERED: PROTONIX 40MG T40 MG PO (13:49)
[2019-07-01] MEDS ORDERED: NOVOLOG 100U100 U/M1 SQ (13:50)
[2019-07-01] MEDS ORDERED: LEVEMIR SQ (13:51)
[2019-07-01] MEDS ORDERED: PROAIR HFA0.09 MG/AC IH (13:51)
[2019-07-01] MEDS ORDERED: LASIX 20MG TABL20 MG PO (13:52)
[2019-07-01] MEDS ORDERED: COUMADIN 77.5 MG/TAB PO (13:53)
[2019-07-01] MEDS ORDERED: NOVLOG SQ (13:54)
[2019-07-01] MEDS ORDERED: CEFTRIAXON2 GM/50 ML IV (13:57)
== END 2019-07-01 08:32 | disposition home or self-care (01) ==
LOC: EUO 08:00
PROVIDERS: Internal Medicine Infectious Disease; Nurse Practitioner
DX: A41.9 Sepsis, unspecified organism (principal); M00.9 Pyogenic arthritis, unspecified; E11.9 Type 2 diabetes mellitus without complications; A49.01 Methicillin susceptible Staphylococcus aureus infection, unspecified site
CPT/HCPCS: J0696

== ENCOUNTER 2019-07-03 10:53 | Inpatient (IN) | payer OTHER ==
[~2019-07-03] VITALS: Ht 182.9 cm; Wt 94.0 kg
[~2019-07-03 10:53] MED LIST changes: +COUMADIN 77.5 MG/TAB PO; +LEVEMIR SQ
[2019-07-03 16:42] VITALS: BP 159/75; PULSE 91; TEMP 98.4
[2019-07-03 16:46] VITALS: BP 159/75; PULSE 94; TEMP 98.3
--- NOTE | 2019-07-03 19:00 | NUR ---
Patient has been doing well today. His pain is only an issue when getting to the chair or BSC. He is tolerating oral pain medications well. No other changes at this time. Call light within reach.
--- NOTE | 2019-07-03 19:27 | NUR ---
Warfarin Initial Dosing Pharmacy Note Ordering Provider: Sajan Hall MD Indication: VTE Prophylaxis, h/o PE/DVT LABS: INR 1 Recommendation: Will increase Warfarin to 10 mg po qhs starting tonight as INR subtherapeutic s/p x2 doses of Warfarin 7.5 mg/day. Pharmacy will continue to monitor daily INR levels. Home Regimen: Warfarin 7.5 mg po qHS
--- NOTE | 2019-07-03 20:00 | NUR ---
PT RESTING IN BED. JUST HAD BM ON BSC. TRANSFERS WELL FROM BSC TO BED. SEE MAR FOR PAIN MED REQUESTED. GARCIA WRAP DRSG CDI. NO DRG. REFUSES ELEVATION OF STUMP. SCDS TO LLE.
[2019-07-04 05:55] VITALS: BP 158/78; PULSE 87; TEMP 97.9
[2019-07-04 07:19] LABS: INR 1.1 (0.8-3.0); PROTHROMBIN TIME 12.8 SECONDS (9.7-12.8)
[2019-07-04 07:24] LABS: BASO # 0.1 (0.0-0.2); BASO % 0.6 % (0.0-2.0); EOS # 0.3 (0.0-0.7); EOS % 3.2 % (0-4.0); GRAN # 4.7 (1.4-6.5); GRAN % 53.2 % (42.2-75.2); LYMPH % 33.8 % (20.0-51.0); MEAN CELL VOLUME 83 fl (80.0-100.0); MEAN CORPUSCULAR HGB CONC 31 g/dl (33.0-37.0); MEAN PLATELET VOLUME 8.3 fl (7.4-10.4); MONO # 0.8 (0.1-0.6); PLATELET COUNT 484 K/mm3 (130-400); RED BLOOD COUNT 2.97 M/mm3 (4.20-5.60); REDCELL DISTRIBUTION WIDTH-CV 14.4 % (11.5-14.5)
[2019-07-04 07:26] LABS: CREATININE, serum 1.21 (0.66-1.25); HEMATOCRIT 24.7 % (42.0-52.0); HEMOGLOBIN 7.7 g/dl (13.5-18.0); MAGNESIUM 2.1 mg/dL (1.6-2.3); MEAN CORPUSCULAR HEMOGLOBIN 26 pg (27.0-31.0); POTASSIUM 4.8 mmol/L (3.4-5.0)
--- NOTE | 2019-07-04 08:06 | NUR ---
Report from BILL Elder. Pt ate breakfast in bed with head up, glasses in place, call lt in reach, PICC flushes without complications, takes pills whole with thin liquids, A&O, pleasant. Pt has pants on, could see distal aspect of stump dressing, CDI.
--- NOTE | 2019-07-04 15:15 | NUR ---
Medical Illustrator met with patient to complete initial intake as patient is new to [facility]. Patient lives in [place] with his son Zion and daughter in law Lisseth. Patient sees Dr. Herrera for primary care. Upon previous discharge from [facility], patient was set up with [facility] for primary care due to lack of insurance coverage. Per patient, [facility] did not accept patient for primary care because they only have a Physician [employer] and felt his needs would be best managed by a Physician. Patient is still Medicaid pending. DANISH has consulted with Keyur Financial Counselor who advised he provided patient with a list of documentation requested by [employer]. Patient's daughter, Jennifer is working on gathering the required documentation. Patient has a walker and crutches at home. Patient reports he has an order for a wheelchair that his daughter dropped off at [facility]. Patient obtains medications from [facility] [employer] and also utilizes [facility] to help reduce cost of medications. Patient states he cannot afford his insulin so his PCP has provided him with insulin pens. Patient has Advance Directives located in EMR. DANISH contacted patient's daughter, Jennifer who advised she is picking up patient's wheelchair from [employer] today and is still working on the requested documents from [facility]. DANISH to continue to follow.
[2019-07-04 16:39] VITALS: BP 136/60; PULSE 91; TEMP 97.6
--- NOTE | 2019-07-04 20:00 | NUR ---
PT RESTING IN BED. DROWSY. PAIN IMPROVED BUT TILL LEVEL 4-5 TO RT STUMP. ENC TO ELEVATE RT STUMP- REFUSED. DECLINED ICE PACK. NO OTHER NEEDSAT THIS TIME.
--- NOTE | 2019-07-04 20:11 | NUR ---
Orders obtained for felicia as ordered on surgical unit as pt was reporting pain 10/10 throghout late morning and afternoon. BIMS completed, found safety pins for pt to pin up his pant leg to AKA. Pt bedresting at shift change, bedside report to BILL Elder. Call lt in reach.
[2019-07-05 04:46] VITALS: BP 158/75; PULSE 90; TEMP 98.1
--- NOTE | 2019-07-05 07:36 | NUR ---
Bedside report from BILL Elder. Pt in bed with gripper sock in place, SCD to LLE, glasses on, urinal in reach. A&O, pleasant.
[2019-07-05 08:18] LABS: INR 1.3 (0.8-3.0); PROTHROMBIN TIME 14.7 SECONDS (9.7-12.8)
--- NOTE | 2019-07-05 15:43 | NUR ---
Radio Tester met with patient to check in before the weekend. Patient reports he is doing as well as can be expected. Patient is looking forward to an old friend from work visiting him this weekend. SW to continue to follow.
[2019-07-05 17:48] VITALS: BP 151/70; PULSE 93; TEMP 98.4
--- NOTE | 2019-07-05 20:00 | NUR ---
PATIENT RESTING IN BED DURING SHIFT CHANGE REPORT FROM DAY SHIFT NURSE. BED ALARM ENGAGED. SEE eMAR FOR MEDS GIVEN.
--- NOTE | 2019-07-05 20:22 | NUR ---
Bedside report to BILL Peng. Pt bedresting, stump dressing intact, pain meds increased per orders, requests frequently. Urinal in reach, emptying assist.
--- NOTE | 2019-07-06 03:30 | NUR ---
RESTING IN BED, LOOKING AT PHONE, BED ALARM ENGAGED. NO NEEDS REPORTED.
--- NOTE | 2019-07-06 04:57 | NUR ---
REPORTS PICC LINE PORT CAPS WERE CHANGE THIS PAST /MON (Jun OR ).
[2019-07-06 04:59] VITALS: BP 141/67; PULSE 92; TEMP 97.8
[2019-07-06 08:13] LABS: INR 1.5 (0.8-3.0); PROTHROMBIN TIME 17.7 SECONDS (9.7-12.8)
--- NOTE | 2019-07-06 11:13 | NUR ---
Patient working with therapy downstairs. Started to have symptoms of tunnel vision and not feeling right. Blood sugar taken with results of 81. Given Ensure to drink. Will continue to monitor.
--- NOTE | 2019-07-06 11:22 | NUR ---
Patient resting in bed with call light in reach following a morning of therapies.
[2019-07-06 18:25] VITALS: BP 117/54; PULSE 88; TEMP 98
--- NOTE | 2019-07-06 20:51 | NUR ---
PT doing well. Alert and oriented with VSS. PT does c/o pain in right aka. PRN oxy given. Pt PICC to RUE CD&I. PT had BM this am. PT BG of 81.Ensure given and insulin held. Pt denies needs at this time. CAll light within reach, will continue to monitor
--- NOTE | 2019-07-06 20:51 | NUR ---
Patient had no other episodes of low blood sugar this shift following this morning. Patient had a visitor today and she visited him for a couple of hours. He tolerated his diet well this shift. He did get a bagel from [employer] and coffee from his friend this morning. Pain is being managed with prn [place] and Oxy and this has been effective. Will continue to monitor.
[2019-07-07 05:16] VITALS: BP 155/67; PULSE 91; TEMP 97.8
--- NOTE | 2019-07-07 08:09 | NUR ---
Patient resting in bed at this time, call light in reach and watching TV. Independent with eating. Denies questions at this time.
[2019-07-07 09:38] LABS: INR 1.8 (0.8-3.0); PROTHROMBIN TIME 21.8 SECONDS (9.7-12.8)
--- NOTE | 2019-07-07 15:19 | NUR ---
Patient resting in bed, call light in reach with slip proof socks on. Patient denies any questions at this time.
[2019-07-07 17:06] VITALS: BP 134/56; PULSE 91; TEMP 98.1
--- NOTE | 2019-07-07 20:35 | NUR ---
Pt doing well. resting in bed with right stump elevated. does not want ice on at this time. pt alert and oriented with vss. pt receiving pain meds per prn regimen. denies needs at this time. call light within reach, will continue to monitor
[2019-07-07 21:00] VITALS: BP 158/63; PULSE 90; TEMP 98
[2019-07-08 03:09] VITALS: BP 143/67; PULSE 87; TEMP 98.3
--- NOTE | 2019-07-08 03:50 | NUR ---
Pt doing ok. In room on phone. Has been awake most of night. Alternating between oxy and norco. Pt call light within reach, will continue to monitor
[2019-07-08 09:41] LABS: PROTHROMBIN TIME 23.3 SECONDS (9.7-12.8)
--- NOTE | 2019-07-08 09:47 | NUR ---
Bedside report from BILL Wynn. She states pt fell with her last night. This nurse notified ortho office and left a message for Dr. Hernandes's nurse that per report, pt fell on stump.
--- NOTE | 2019-07-08 12:20 | NUR ---
Isabel nurse from Dr. Hernandes's office returned call about pt's fall.
--- NOTE | 2019-07-08 16:06 | NUR ---
SW met with the patient to introduce oneself and to follow up after the weekend. The patient states that he is doing pretty good. He states that this weekend did not go very well though, due to a fall last night. The patient states that his daughter should still be trying to get in contact with the [facility] about benefits. The patient had no other questions or concerns for SW at this time. SW to continue to follow.
[2019-07-08 16:22] VITALS: BP 143/64; PULSE 89; TEMP 97.8
--- NOTE | 2019-07-08 18:21 | NUR ---
Per ortho nurse, monitor dressing for drainage from stump, report any further concerns, they are aware of pt's consistantly high pain rating prior to fall and after. Dr. Hall notified of pt's fall and ortho being notified.
--- NOTE | 2019-07-08 20:30 | NUR ---
HS meds along with norco for right AKA pain reviewed and given. Declines cream applied to LLE. "once a day is enough". Watches TV. Pleasant. Declines HS snack.
--- NOTE | 2019-07-09 02:34 | NUR ---
Patient has been resting with eyes closed.
--- NOTE | 2019-07-09 04:19 | NUR ---
Patient reports he's "had some sleep" tonight. Roxycodone given for pain.
[2019-07-09 05:21] VITALS: BP 150/71; PULSE 77; TEMP 97.7
[2019-07-09 07:52] LABS: INR 1.9 (0.8-3.0); PROTHROMBIN TIME 22.4 SECONDS (9.7-12.8)
[2019-07-09 15:49] VITALS: BP 157/69; PULSE 89; TEMP 97.9
--- NOTE | 2019-07-09 17:41 | NUR ---
Pt was assisted to BR, left with call light, he pulled the cord but staff was unavailable to assist back to bed. This nurse arrived to find pt sitting bedside, sternly edu about not amb by himself, especially because of his recent fall. Pt in yellow gown/wrist band/gripper sock, walker was used, glasses in place. Bed alarm turned on. Call lt in reach.
--- NOTE | 2019-07-09 19:32 | NUR ---
Notified Dr. Hernandes's nurse that pt was concerned about his stump dressing sliding off about 2", she reports will see pt on , informed pt. He is in a better mood at bedside report to BILL Andres. Fall precautions in place.
--- NOTE | 2019-07-09 21:30 | NUR ---
Patient CGA to the bathroom with walker. Hops slowly LLE. Has large loose dk green bm and manages all toileting tasks. Rests self back in bed. Bath wipes given and patient does juliet-care and washes hands. Took snack of glucerna earlier for blood sugar 86. Pain meds alternated q 4 hours. Patient rates pain 10/10 each time. Affect calm. States gets muscle spasms RLE at times depending on positioning.
--- NOTE | 2019-07-10 01:01 | NUR ---
Patient incontinent of loose stool and assisted to cleanse/change. Up to the bathroom twice to finish BM. Ulysses given for pain.
--- NOTE | 2019-07-10 02:39 | NUR ---
Patient rests with eyes closed.
[2019-07-10 03:52] VITALS: BP 138/63; PULSE 92; TEMP 97.1
[2019-07-10 07:54] LABS: BASO # 0.1 (0.0-0.2); BASO % 0.7 % (0.0-2.0); EOS # 0.2 (0.0-0.7); GRAN # 4.1 (1.4-6.5); GRAN % 50.7 % (42.2-75.2); HEMATOCRIT 23.4 % (42.0-52.0); HEMOGLOBIN 7.2 g/dl (13.5-18.0); LYMPH # 2.8 (1.2-3.4); LYMPH % 35.5 % (20.0-51.0); MEAN CELL VOLUME 84 fl (80.0-100.0); MEAN CORPUSCULAR HEMOGLOBIN 26 pg (27.0-31.0); MEAN CORPUSCULAR HGB CONC 31 g/dl (33.0-37.0); MEAN PLATELET VOLUME 8.3 fl (7.4-10.4); MONO # 0.8 (0.1-0.6); MONO % 9.9 % (1.7-9.3); PLATELET COUNT 563 K/mm3 (130-400); RED BLOOD COUNT 2.78 M/mm3 (4.20-5.60); REDCELL DISTRIBUTION WIDTH-CV 14.7 % (11.5-14.5)
[2019-07-10 08:05] LABS: CALCIUM 9.4 mg/dL (8.4-10.2); CREATININE, serum 1.83 (0.66-1.25); MAGNESIUM 2.3 mg/dL (1.6-2.3)
[2019-07-10 08:11] LABS: POTASSIUM 6.1 mmol/L (3.4-5.0)
--- NOTE | 2019-07-10 16:31 | NUR ---
DANISH met with the patient to present and review the IPR Team Conference Note. DANISH discussed the team's recommendation of a discharge this Monday, 07/12, with outpatient PT. The patient was in agreeance to this. He states that he was getting outpatient PT at [facility] on [address] and would prefer to receive it from them again. SW to contact [facility] on [address] and set up appointment. The patient does have his wheelchair. DANIHS also collaborated with Keyur with Financial Counseling. Keyur reports that the patient had not yet provided his additional documents to [employer]. Keyur states that provided a list to the patient on what he needs to provide. DANISH reviewed this with the patient. The patient states that he daughter, Jennifer, contacted [employer] and that [employer] would not accept the bank statements she had. DANISH attempted to contact Keyur with Financial Counseling. DANISH left a voicemail and will continue to follow.
[2019-07-10 17:11] VITALS: BP 149/62; PULSE 89; TEMP 98.1
--- NOTE | 2019-07-10 17:46 | NUR ---
Pt's daughter brought him a hamburger
--- NOTE | 2019-07-10 20:00 | NUR ---
PATIENT RESTING IN BED DURING SHIFT CHANGE REPORT FROM DAY SHIFT NURSE. PATIENT UP INDEPENDENTLY IN WHEEL CHAIR WITH NO PROBLEMS REPORTED.
--- NOTE | 2019-07-10 20:16 | NUR ---
Shift summary: Bedside report from BILL Andres. Notified Dr. Hall of critical potassium, see new orders. No s/s of DVT to LLE, was ordered by Dr. Hall with plan to stop coumadin, start heparin, but decided against it and continued coumadin orders d/t rt AKA. NS to PICC, red port, as purple port had too much restistance, does have good blood return and both flush well. Pt made mod I in rm/parikh with wheelchair. Enc to call for safety. In yellow gown, gripper sock, bed at shift change, sound asleep and snoring, report to BILL Peng.
--- NOTE | 2019-07-11 01:39 | NUR ---
PATIENT RESTING IN BED, REQUESTED&GIVEN PAIN MEDS, SEE eMAR. REVIEWED WITH PATIENT UP IN ROOM/CARDONA IN WHEEL CHAIR ONLY, PATIENT AGREED TO USE WALKER WITH STAFF ASSIST/GB TO BE USED WITH WALKER. NO OTHER NEEDS REPORTED.
[2019-07-11 03:45] VITALS: BP 153/68; PULSE 85; TEMP 98.7
[2019-07-11 06:26] LABS: INR 1.9 (0.8-3.0); PROTHROMBIN TIME 22.3 SECONDS (9.7-12.8)
[2019-07-11 06:28] LABS: CALCIUM 9.2 mg/dL (8.4-10.2); CREATININE, serum 1.26 (0.66-1.25); POTASSIUM 5.4 mmol/L (3.4-5.0)
--- NOTE | 2019-07-11 07:24 | NUR ---
Patient in bed during shift change report given to day shift nurse. Patient up in w/c independently in room. No needs reported.
--- NOTE | 2019-07-11 10:23 | NUR ---
Patient resting in bed at this time, is independent in his room with his wheelchair. He uses call light appropriatly. Pain to right stump is being managed with alternating oxicodone and hydrocodone. Patient denies questions at this time. Will continue to monitor.
--- NOTE | 2019-07-11 13:38 | NUR ---
Admission QIM scores were reviewed by the team. Code of 4 chosen for toilet hygiene was determined by team discussion to be the most usual performance before interventions for this patient during the assessment period. Code of 4 chosen for toilet transfers was determined by team discussion to be the most usual performance before interventions for this patient during the assessment period. Code of 3 chosen for sit to stand was determined by team discussion to be the most usual performance for this patient during the assessment period. Code of 3 chosen for chair/bed-to chair transfer was determined by team discussion to be the most usual performance for this patient during the assessment period.--Yessenia Lutz, PD
--- NOTE | 2019-07-11 14:57 | NUR ---
Keyur, with Financial Counseling, contacted DANISH to inform that he will meet with the patient today. DANISH contacted [facility] on [address] and secured the patient an outpatient PT appointment on Monday, 07/16, at 0800. DANISH will need to fax the patient's discharge orders to [facility] on [address] at [phone]. DANISH notified the patient's RN of appointment. DANISH to continue to follow.
[2019-07-11 15:34] VITALS: BP 159/77; PULSE 92; TEMP 97.8
--- NOTE | 2019-07-11 20:00 | NUR ---
PT RESTING IN BED. C/O RT STUMP PAIN. LEVEL 10. SEE MAR FOR PAIN MED GIVEN. NS INFUSING TO RED PORT PICC LINE RT UPPER ARM AT 60CC/HR. MOD I IN ROOM IN . PT RELATED ORTHO DOCTOR HERE YESTERDAY TO CHANGE RT STUMP DRSG. "ALL LOOKS GOOD". STILL HAVING PHANTOM PAIN.
[2019-07-12 03:52] VITALS: BP 168/79; PULSE 88; TEMP 97.5
[2019-07-12 07:25] LABS: INR 2.1 (0.8-3.0); PROTHROMBIN TIME 25.4 SECONDS (9.7-12.8)
[2019-07-12 07:30] LABS: CALCIUM 8.9 mg/dL (8.4-10.2); CREATININE, serum 0.92 (0.66-1.25)
[2019-07-12 07:36] LABS: BASO % 0.6 % (0.0-2.0); EOS # 0.3 (0.0-0.7); EOS % 4.6 % (0-4.0); GRAN # 3.3 (1.4-6.5); GRAN % 48.7 % (42.2-75.2); LYMPH # 2.5 (1.2-3.4); LYMPH % 37.7 % (20.0-51.0); MEAN CELL VOLUME 85 fl (80.0-100.0); MEAN CORPUSCULAR HGB CONC 31 g/dl (33.0-37.0); MONO # 0.5 (0.1-0.6); MONO % 8.1 % (1.7-9.3); PLATELET COUNT 528 K/mm3 (130-400); RED BLOOD COUNT 2.69 M/mm3 (4.20-5.60); REDCELL DISTRIBUTION WIDTH-CV 14.6 % (11.5-14.5)
[2019-07-12 07:39] LABS: HEMATOCRIT 22.8 % (42.0-52.0); MEAN CORPUSCULAR HEMOGLOBIN 26 pg (27.0-31.0)
--- NOTE | 2019-07-12 08:00 | NUR ---
Patient resting in bed this morning, call light in reach and independent in his room with a walker. He is relaxing waiting for the doctor to come in to discuss his discharge. He denied questions at this time.
--- NOTE | 2019-07-12 12:00 | NUR ---
Patient's pain is being tolerated with alternating [place] and Oxycodone through day. Will continue to monitor.
[2019-07-12 14:40] VITALS: BP 160/75; PULSE 87; TEMP 98.8
--- NOTE | 2019-07-12 14:40 | NUR ---
Dr. Ball saw patient and ordered patient to get a unit of blood prior to his discharge home today. Patient currently waiting for transfussion.
[2019-07-12] MEDS ORDERED: NORVASC 10MG10 MG PO (14:45)
--- NOTE | 2019-07-12 14:52 | NUR ---
Transfusion just began. Patient resting in bed at this time, call light in reach and recieving PRBC.
[2019-07-12 14:57] VITALS: BP 156/70; PULSE 89; TEMP 97.6
[2019-07-12] MEDS ORDERED: NORCO 325 MG-7.1 TAB PO (15:02)
[2019-07-12] MEDS ORDERED: DAZIDOX10 MG PO (15:03)
[2019-07-12] MEDS ORDERED: COUMADIN 1010 MG/TAB PO (15:04)
[2019-07-12 15:13] VITALS: BP 150/68; PULSE 86; TEMP 98
[2019-07-12 15:28] VITALS: BP 152/70; PULSE 85; TEMP 98.1
--- NOTE | 2019-07-12 16:17 | NUR ---
The patient is to discharge back home with his son and [id number] today, 07/12, with outpatient PT at [facility] on [address]. DANISH faxed the patient's discharge orders to [facility] on [address]. DANISH met with the patient before discharge. The patient had no other questions or concerns for DANISH. He did request to speak to financial counseling again. DANISH notified Kyeur with Financial Counseling. Keyur met with the patient and the patient requested that Keyur contact his daughter. Keyur informed DANISH that he plans to contact his daughter, Jennifer. No additional needs at this time.
--- NOTE | 2019-07-12 18:00 | NUR ---
Picc line was removed by Charge Nurse BILL Seaz following his blood transfussion. He was given his PICC removal paper work and he read it to this nurse and voiced understanding.
[2019-07-12 18:37] VITALS: BP 168/75; PULSE 93; TEMP 98.2
--- NOTE | 2019-07-12 19:42 | NUR ---
Patient Health Summary, Discharge Summary, and Home Meds printed and reviewed with patient and daughter. Stressed importance of follow up appointments. Reviewed medications, provided printed prescriptions for [place] and Oxy. Belongings gathered by MARRY/Farhad including glasses, clothes, wheelchair and walker, phone and statement clerks supervisor. Patient transported via wheelchair by MARRY/Farhad and seatbelted for ride home. Patient and daughter denied questions.
== END 2019-07-12 18:30 | disposition home or self-care (01) | DRG 948 ==
PROVIDERS: ADMIT Internal Medicine
DX: R53.81 Other malaise (principal); M86.9 Osteomyelitis, unspecified; K22.10 Ulcer of esophagus without bleeding; E11.69 Type 2 diabetes mellitus with other specified complication; I10 Essential (primary) hypertension; E78.5 Hyperlipidemia, unspecified; K29.70 Gastritis, unspecified, without bleeding; R91.1 Solitary pulmonary nodule; D64.9 Anemia, unspecified; D47.3 Essential (hemorrhagic) thrombocythemia; N28.9 Disorder of kidney and ureter, unspecified; Z79.4 Long term (current) use of insulin; Z79.01 Long term (current) use of anticoagulants; Z79.891 Long term (current) use of opiate analgesic; Z86.711 Personal history of pulmonary embolism; Z86.718 Personal history of other venous thrombosis and embolism; Z87.891 Personal history of nicotine dependence; Z89.412 Acquired absence of left great toe; Z89.611 Acquired absence of right leg above knee
CPT/HCPCS: 99222-AI; 99232-AI; 99233-AI; 99239; J1815; J7030; P9016

== ENCOUNTER 2019-08-20 08:15 | Outpatient (RCR) | payer MEDICAID ==
[~2019-08-20 08:15] MED LIST changes: +COUMADIN 1010 MG/TAB PO; +DAZIDOX10 MG PO; +NORVASC 10MG10 MG PO
== END 2019-10-14 | disposition home or self-care (01) ==
LOC: WSPT
DX: Z89.611 Acquired absence of right leg above knee (principal)

== ENCOUNTER 2019-12-12 22:28 | Inpatient (IN) | payer MEDICAID ==
[~2019-12-12] VITALS: Ht 182.9 cm; Wt 121.4 kg
[2019-12-12 23:14] LABS: BASO # 0.1 (0.0-0.2); BASO % 0.8 % (0.0-2.0); EOS # 0.5 (0.0-0.7); EOS % 5.3 % (0-4.0); GRAN # 6.1 (1.4-6.5); GRAN % 66.6 % (42.2-75.2); LYMPH # 1.7 (1.2-3.4); LYMPH % 18.3 % (20.0-51.0); MEAN CELL VOLUME 86 fl (80.0-100.0); MEAN CORPUSCULAR HGB CONC 33 g/dl (33.0-37.0); MEAN PLATELET VOLUME 8.7 fl (7.4-10.4); MONO # 0.8 (0.1-0.6); MONO % 8.5 % (1.7-9.3); PLATELET COUNT 328 K/mm3 (130-400); RED BLOOD COUNT 3.42 M/mm3 (4.20-5.60); REDCELL DISTRIBUTION WIDTH-CV 14.5 % (11.5-14.5)
[2019-12-12 23:15] LABS: HEMATOCRIT 29.5 % (42.0-52.0); HEMOGLOBIN 9.6 g/dl (13.5-18.0); MEAN CORPUSCULAR HEMOGLOBIN 28 pg (27.0-31.0)
[2019-12-12 23:20] LABS: ALANINE AMINOTRANSFERASE 14 U/L (4-49); ALBUMIN 3.9 gm/dL (3.5-5.0); ALKALINE PHOSPHATASE 145 U/L (50-136); ANION GAP 10 mmol/L (7-16); AST,SGOT 26 U/L (15-37); BILIRUBIN,TOTAL 0.5 mg/dL (0.0-1.0); BLOOD UREA NITROGEN 27 mg/dL (9-20); CALCIUM 8.5 mg/dL (8.4-10.2); CARBON DIOXIDE 22 mmol/L (22-30); CHLORIDE 103 mmol/L (98-107); CREATININE, serum 2.01 (0.66-1.25); GLUCOSE 283 mg/dL (74-106); POTASSIUM 5.4 mmol/L (3.4-5.0); SODIUM 135 mmol/L (137-145); TOTAL PROTEIN 7.8 gm/dL (6.4-8.2)
[2019-12-12 23:31] LABS: TROPONIN-I < 0.012 ng/mL (0.000-0.035)
[2019-12-12 23:32] LABS: PROTHROMBIN TIME 45.3 SECONDS (9.7-12.8)
[2019-12-13] MEDS ORDERED: COUMADIN 1010 MG/TAB PO (01:01)
[2019-12-13] MEDS ORDERED: COUMADIN 77.5 MG/TAB PO (01:01)
[2019-12-13] MEDS ORDERED: KAPSPARGO SPRIN25 MG PO (01:03)
[2019-12-13] MEDS ORDERED: LIPITOR 40MG TA40 MG PO (01:03)
[2019-12-13] MEDS ORDERED: GLUCOPHAGE1000 MG PO (01:04)
[2019-12-13] MEDS ORDERED: ASPIRIN 81M81 MG/TA2 PO (01:50)
[2019-12-13 02:02] VITALS: BP 141/65; PULSE 88; TEMP 98.1
--- NOTE | 2019-12-13 02:20 | NUR ---
Patient arrived to medical floor at 0130. Assessment completed. Right lower lobe dimished otherwise clear. Heart sounds normal. Bowels active x4. ABD distended and firm. Pulses present throughout. Left lower extremity edema +2. INT left AC without complications. Telemetry leads and box replaced. Provided patient with water and coffee at this time-per ADA diet. Orientated patient to medical floor. Med rec complete. All questions answered at this time. Denies other needs. Call light in reach.
--- NOTE | 2019-12-13 02:26 | NUR ---
Dr. Banks notified of patient arrival at this time. Verbal orders for glucose checks ACHS, Novolog mid sliding scale-start first dose now, fluid restriction of 2 liters, order morning labs CBC and BMP. Hospitalist team to see patient in AM. Orders added.
[2019-12-13 03:43] VITALS: BP 146/74; PULSE 91; TEMP 97.9
--- NOTE | 2019-12-13 04:10 | NUR ---
Resting in bed. Denies needs. Call light in reach.
--- NOTE | 2019-12-13 06:02 | NUR ---
Patient had uneventful night. Resting in bed this AM. Call light in reach.
--- NOTE | 2019-12-13 06:30 | NUR ---
Bedside shift report received from BILL Vincent. pT in bed resting, doing well, denies needs, 2L 02 per NC. Will continue to monitor.
[2019-12-13 06:38] LABS: BASO # 0.1 (0.0-0.2); BASO % 0.6 % (0.0-2.0); EOS # 0.4 (0.0-0.7); EOS % 4.7 % (0-4.0); GRAN # 5.3 (1.4-6.5); GRAN % 66.3 % (42.2-75.2); LYMPH # 1.4 (1.2-3.4); LYMPH % 17.8 % (20.0-51.0); MEAN CELL VOLUME 85 fl (80.0-100.0); MEAN CORPUSCULAR HGB CONC 33 g/dl (33.0-37.0); MEAN PLATELET VOLUME 8.5 fl (7.4-10.4); MONO # 0.8 (0.1-0.6); MONO % 10.2 % (1.7-9.3); PLATELET COUNT 310 K/mm3 (130-400); RED BLOOD COUNT 3.37 M/mm3 (4.20-5.60); REDCELL DISTRIBUTION WIDTH-CV 14.4 % (11.5-14.5)
[2019-12-13 06:48] LABS: HEMATOCRIT 28.6 % (42.0-52.0); HEMOGLOBIN 9.5 g/dl (13.5-18.0); MEAN CORPUSCULAR HEMOGLOBIN 28 pg (27.0-31.0)
[2019-12-13 06:53] LABS: CALCIUM 8.7 mg/dL (8.4-10.2); CREATININE, serum 1.98 (0.66-1.25); POTASSIUM 4.4 mmol/L (3.4-5.0)
--- NOTE | 2019-12-13 07:08 | NUR ---
Report given to BILL Nuñez
[2019-12-13 08:20] LABS: INR 4.3 (0.8-3.0)
[2019-12-13 08:31] LABS: PROTHROMBIN TIME 48.8 SECONDS (9.7-12.8)
--- NOTE | 2019-12-13 08:57 | NUR ---
Pt doing well, reports intermittent left flank pleuritic chest pain when coughing. Feels his abd is swollen and taught, having BMs, bowel sounds audible. Urine yellow and clear. 2L NC. Pt states he is very SOB on any exertion. Taking PO well. INT to LAC. Will continue to monitor.
[2019-12-13 11:44] VITALS: BP 154/81; PULSE 88; TEMP 97.9
[2019-12-13 12:46] LABS: COLLECTION METHOD CLEAN CATCH
[2019-12-13 12:54] LABS: PH 7 (5-8); SQUAMOUS EPITHELIAL None Seen /hpf; URINE APPEARANCE Clear; URINE BACTERIA None Seen /hpf; URINE BILIRUBIN Negative (NEGATIVE); URINE BLOOD 2+ (NEGATIVE); URINE COLOR Straw; URINE GLUCOSE Negative (NEGATIVE); URINE KETONE Negative (NEGATIVE); URINE LEUKOCYTE ESTERASE Negative (NEGATIVE); URINE NITRATE Negative (NEGATIVE); URINE PROTEIN(semi-quant) 2+ (NEGATIVE); URINE RBC >50 /hpf; URINE UROBILINOGEN Negative (NEGATIVE)
--- NOTE | 2019-12-13 13:07 | NUR ---
SW met with patient to complete intake and complete discharge plan. Patient states that he lives in [place], [place] with his son and [id number]. Patient provides that he utilizes a walker, a wheelchair and a crutch to get up and down stairs. He also states that he is independent with his ADLs. Patient states that his PCP is Dr. Jas Asif, receives his medications from [facility] and is able to afford his medications. Patient provides that his DPOA-HC is Jennifer Reddy of [place], [place] [phone]. Patient states that he plans to go back to his home upon discharge. He states that he feels comfortable going back home and has no questions or concerns at this time. SW will continue to follow.
[2019-12-13 15:54] VITALS: BP 148/76; PULSE 91; TEMP 98
--- NOTE | 2019-12-13 18:33 | NUR ---
Pt has done well over shift. REsting in bed, up to bathroom with supervision with walker, ambulates well. O2 at 1L NC. Pt has been voiding well with urinal, skin remains tight on arms and abdomen. REsting well between disturbances, will give bedside shift report to nightshift nurse who will resume care.
[2019-12-13 20:00] VITALS: BP 157/81; PULSE 89; TEMP 98.7
--- NOTE | 2019-12-13 22:35 | NUR ---
Pt assessment completed, charted, NC oxygen 1l, independent, on tele. Meds provided as per MAR, tolerated well. No N/V/D, tingling, numbness, SOB, pain as per pt. I/V flushed without complications. Helped to settled down on his bed, call light on reach, no further needs at this time.
[2019-12-13 23:58] VITALS: BP 142/84; PULSE 91; TEMP 98.4
--- NOTE | 2019-12-14 02:04 | NUR ---
Resting in bed asleep. Call light in reach.
[2019-12-14 03:37] VITALS: BP 129/79; PULSE 84; TEMP 98.2
--- NOTE | 2019-12-14 05:43 | NUR ---
Pt had an uneventful night, slept on and off through out the night. No further needs at this time.
[2019-12-14 06:27] LABS: BASO # 0.1 (0.0-0.2); BASO % 0.7 % (0.0-2.0); EOS # 0.5 (0.0-0.7); EOS % 6.6 % (0-4.0); GRAN # 4.2 (1.4-6.5); GRAN % 58.2 % (42.2-75.2); LYMPH # 1.6 (1.2-3.4); LYMPH % 21.7 % (20.0-51.0); MEAN CELL VOLUME 85 fl (80.0-100.0); MEAN CORPUSCULAR HGB CONC 34 g/dl (33.0-37.0); MEAN PLATELET VOLUME 8.7 fl (7.4-10.4); MONO # 0.9 (0.1-0.6); MONO % 12.4 % (1.7-9.3); PLATELET COUNT 312 K/mm3 (130-400); RED BLOOD COUNT 3.22 M/mm3 (4.20-5.60); REDCELL DISTRIBUTION WIDTH-CV 14.1 % (11.5-14.5)
[2019-12-14 06:28] LABS: INR 3.5 (0.8-3.0); PROTHROMBIN TIME 39.5 SECONDS (9.7-12.8)
[2019-12-14 06:35] LABS: CALCIUM 8.8 mg/dL (8.4-10.2); CREATININE, serum 2.23 (0.66-1.25)
[2019-12-14 06:48] LABS: HEMATOCRIT 27.5 % (42.0-52.0); HEMOGLOBIN 9.3 g/dl (13.5-18.0); MEAN CORPUSCULAR HEMOGLOBIN 29 pg (27.0-31.0)
--- NOTE | 2019-12-14 07:13 | NUR ---
Report given to BILL Luque
[2019-12-14 07:57] VITALS: BP 151/74; PULSE 84; TEMP 98.6
[2019-12-14 11:38] VITALS: BP 153/81; PULSE 89; TEMP 98.3
[2019-12-14 15:39] VITALS: BP 141/74; PULSE 88; TEMP 98.9
[2019-12-14 15:53] LABS: COLLECTION METHOD CLEAN CATCH
[2019-12-14 16:20] LABS: URINE PROTEIN:CREAT RATIO 4.17 (0.00-0.14)
[2019-12-14 16:22] LABS: PH 7 (5-8); SQUAMOUS EPITHELIAL None Seen /hpf; URINE APPEARANCE Clear; URINE BACTERIA None Seen /hpf; URINE BILIRUBIN Negative (NEGATIVE); URINE BLOOD 2+ (NEGATIVE); URINE COLOR Yellow; URINE GLUCOSE 2+ (NEGATIVE); URINE KETONE Negative (NEGATIVE); URINE LEUKOCYTE ESTERASE Negative (NEGATIVE); URINE NITRATE Negative (NEGATIVE); URINE PROTEIN(semi-quant) 2+ (NEGATIVE); URINE RBC 20-50 /hpf; URINE UROBILINOGEN Negative (NEGATIVE); URINE WBC 0-2 /hpf
--- NOTE | 2019-12-14 18:23 | NUR ---
PT VOIDED IN RR AND BLADDER SCAN PVR 4CC
[2019-12-14 20:03] VITALS: BP 151/80; PULSE 89; TEMP 98
--- NOTE | 2019-12-14 20:28 | NUR ---
Resting in bed. Assessment complete. Right lung roman diminshed. Left lung clear. Heart sounds normal. Bowels active x4, ABD distended and firm. Pulses present. Left lower extremity edema +2. Denies pain. INT left AC flushed without complications. Denies needs at this time. Call light in reach.
--- NOTE | 2019-12-14 22:00 | NUR ---
Resting in bed. Denies needs. Call light in reach.
[2019-12-15] VITALS (7 sets, daily range): BP systolic 142–159; BP diastolic 62–91; PULSE 85–92; TEMP 97.6–98.1
--- NOTE | 2019-12-15 00:09 | NUR ---
Resting in bed. Denies needs. Denies pain. Call light in reach.
--- NOTE | 2019-12-15 02:41 | NUR ---
Resting in bed asleep. Call light in reach.
[2019-12-15 06:57] LABS: BASO # 0.1 (0.0-0.2); BASO % 0.8 % (0.0-2.0); EOS # 0.5 (0.0-0.7); GRAN # 4.5 (1.4-6.5); LYMPH # 1.6 (1.2-3.4); LYMPH % 21.2 % (20.0-51.0); MEAN CELL VOLUME 86 fl (80.0-100.0); MEAN CORPUSCULAR HGB CONC 33 g/dl (33.0-37.0); MEAN PLATELET VOLUME 8.9 fl (7.4-10.4); MONO % 12.6 % (1.7-9.3); PLATELET COUNT 328 K/mm3 (130-400); RED BLOOD COUNT 3.12 M/mm3 (4.20-5.60)
[2019-12-15 07:02] LABS: ALBUMIN 3.6 gm/dL (3.5-5.0); BILIRUBIN,TOTAL 0.5 mg/dL (0.0-1.0); CALCIUM 8.5 mg/dL (8.4-10.2); CREATININE, serum 2.23 (0.66-1.25); TOTAL PROTEIN 7.2 gm/dL (6.4-8.2)
[2019-12-15 07:08] LABS: HEMATOCRIT 26.9 % (42.0-52.0); HEMOGLOBIN 8.8 g/dl (13.5-18.0); MEAN CORPUSCULAR HEMOGLOBIN 28 pg (27.0-31.0)
--- NOTE | 2019-12-15 07:10 | NUR ---
Pt is sitting in recliner waiting for breakfast. Pt denies any pain or discomfort at this time. Pt states he is not in need of anything other than more ice chips, he does have a 2000ml fluid restrict. As of 7am the restriction starts over, will continue to monitor I/O throughout the day. Call light within reach. No further concerns at this time.
--- NOTE | 2019-12-15 07:19 | NUR ---
Patient had uneventful night. Resting in bed this AM. Report given to BILL Pereyra
--- NOTE | 2019-12-15 17:49 | NUR ---
Pt has had an uneventful day. Continually monitored through the day, and will have renal u/s tomorrow.
--- NOTE | 2019-12-15 19:12 | NUR ---
Report given to BILL Rollins.
--- NOTE | 2019-12-16 01:01 | NUR ---
Patient has rested well so far this shift. Denies pain so far. Patient has been compliant with fluid restriction of 2000ml. Independent with ambulation with walker. Right BKA noted. Patient alert and oriented. Denies any further needs. INT to left AC flushes with ease. Will continue to monitor.
[2019-12-16 03:37] VITALS: BP 140/81; PULSE 87; TEMP 97.8
[2019-12-16 07:32] LABS: BASO # 0.1 (0.0-0.2); BASO % 0.9 % (0.0-2.0); EOS # 0.4 (0.0-0.7); EOS % 5.3 % (0-4.0); GRAN # 4.9 (1.4-6.5); LYMPH # 1.9 (1.2-3.4); LYMPH % 23.6 % (20.0-51.0); MEAN CELL VOLUME 86 fl (80.0-100.0); MEAN CORPUSCULAR HGB CONC 34 g/dl (33.0-37.0); MEAN PLATELET VOLUME 8.8 fl (7.4-10.4); MONO # 0.8 (0.1-0.6); MONO % 9.8 % (1.7-9.3); PLATELET COUNT 375 K/mm3 (130-400); REDCELL DISTRIBUTION WIDTH-CV 13.9 % (11.5-14.5)
[2019-12-16 07:35] LABS: HEMATOCRIT 29.2 % (42.0-52.0); HEMOGLOBIN 9.8 g/dl (13.5-18.0); MEAN CORPUSCULAR HEMOGLOBIN 29 pg (27.0-31.0)
[2019-12-16 07:36] LABS: INR 1.5 (0.8-3.0); PROTHROMBIN TIME 17.1 SECONDS (9.7-12.8)
[2019-12-16 07:38] LABS: CREATININE, serum 2.6 (0.66-1.25)
[2019-12-16 07:54] VITALS: BP 151/75; PULSE 85; TEMP 97.8
[2019-12-16 11:06] VITALS: BP 153/76; PULSE 85; TEMP 97.7
[2019-12-16 15:33] VITALS: BP 137/49; PULSE 94; TEMP 98.1
--- NOTE | 2019-12-16 15:57 | NUR ---
DANISH met with the patient to follow up with the patient and to review discharge plan. The patient reports that he is doing well. He states that he had a lot of scans and tests today. He states that he is hopeful to discharge soon, because he is suppose to be getting his prostetic leg on Monday. The patient plans to return back home his son and [id number]. He had no other concerns for DANISH. No additional needs at this time.
--- NOTE | 2019-12-16 19:30 | NUR ---
Patient is alert and oriented. right above the kne amputation. complain of chronic general pain at 3/10. patient ambulate independently. new consult to urologist for hematuria and proteinria. renal ultrasound result is unremarkable. 2+ edema on LLE. Distended abdomen. administered insulin as needed for BG. report given to BILL Lazaro.
[2019-12-16 19:56] VITALS: BP 166/68; PULSE 105; TEMP 97.6
--- NOTE | 2019-12-16 20:00 | NUR ---
Report received, assumed care for shift engineer. Assessment complete. A&OX3. VS stable. Denies pain/shortness of breath/nausea. States he has voided several times today but did not use the urinal-got up to the bathroom and voided. States he urinated at 0430, 0900,1200 and 1830. Instructed to use urinal so we could measure output. Verbalizes understanding. Left AC INT flushes without difficulty. Plan of care discussed for fluid restriction/bladder scan if unable to void. Verbalizes understanding. Denies needs. Call light in reach. Will monitor.
[2019-12-16 23:58] VITALS: BP 151/58; PULSE 89; TEMP 97.6
[2019-12-17 03:55] VITALS: BP 165/58; PULSE 106; TEMP 98
--- NOTE | 2019-12-17 05:00 | NUR ---
Rested well this shift. Denies nausea/shortness of breath/nausea. Has been geting up with walker to use bathroom. States he voided several times but unmeasured. Denies needs. Call light in reach. Will monitor.
[2019-12-17 06:37] LABS: BASO % 0.2 % (0.0-2.0); GRAN # 7.9 (1.4-6.5); GRAN % 79.8 % (42.2-75.2); LYMPH % 9.6 % (20.0-51.0); MEAN CELL VOLUME 86 fl (80.0-100.0); MEAN CORPUSCULAR HGB CONC 33 g/dl (33.0-37.0); MEAN PLATELET VOLUME 8.8 fl (7.4-10.4); MONO % 9.8 % (1.7-9.3); PLATELET COUNT 329 K/mm3 (130-400); REDCELL DISTRIBUTION WIDTH-CV 13.9 % (11.5-14.5)
[2019-12-17 06:38] LABS: HEMATOCRIT 24.9 % (42.0-52.0); HEMOGLOBIN 8.3 g/dl (13.5-18.0); MEAN CORPUSCULAR HEMOGLOBIN 29 pg (27.0-31.0)
[2019-12-17 06:51] LABS: CALCIUM 8.7 mg/dL (8.4-10.2); CREATININE, serum 2.56 (0.66-1.25); POTASSIUM 5.1 mmol/L (3.4-5.0)
[2019-12-17 08:03] VITALS: BP 157/67; PULSE 98; TEMP 98
--- NOTE | 2019-12-17 08:15 | NUR ---
Assessment complete. Pt sitting up in bed for breakfast, A&O x 4. Physical assessment unremarkable. Pt denies pain at rest, reports pain to left side with coughing of 9 out of 10 at its worst. Saline lock IV to left AC without s/s of complications. Pt requesting to leave tomorrow morning x 1-1.5 hr to have his prosthetic fitting then come back. This nurse reviews policy that pt would not be able to leave hospital and come back during admission but we will discuss options with Him Tech. No further needs reported. Call light in reach.
[2019-12-17 08:34] LABS: INR 1.6 (0.8-3.0); PROTHROMBIN TIME 17.5 SECONDS (9.7-12.8)
[2019-12-17 11:28] VITALS: BP 168/80; PULSE 96; TEMP 97.9
--- NOTE | 2019-12-17 11:52 | NUR ---
Lisinopril administered per verbal order from PA to restart today. Dressing to left AC IV site changed d/t dried blood noted on old dressing. No further needs reported. Call light in reach.
--- NOTE | 2019-12-17 15:00 | NUR ---
PATIENT ON ROOM AIR SP02 95%
[2019-12-17 15:24] VITALS: BP 150/63; PULSE 101; TEMP 97.9
--- NOTE | 2019-12-17 17:11 | NUR ---
Pt sitting up in bed, has voided a second time since the cystoscopy, reports tenderness during void this time d/t numbing medicine wearing off, states, "it's okay though." Otherwise uneventful shift. No further needs reported. Call light in reach.
[2019-12-17 20:55] VITALS: BP 144/61; PULSE 109; TEMP 98.5
--- NOTE | 2019-12-17 23:27 | NUR ---
Pt assessment completed and charted, alert, oriented, roomair. Meds provided as per MAR, tolerated well. No N/V/D, numbness, tingling, SOB as per pt. Provided cup of coffee and crackers. Helped him settled down on bed, call light on reach. No further needs at this time.
[2019-12-18] VITALS (8 sets, daily range): BP systolic 138–167; BP diastolic 59–87; PULSE 91–95; TEMP 97.7–98.2
--- NOTE | 2019-12-18 06:34 | NUR ---
Pt did not get much sleep, pt was awake while doing q2hrs pt rounds. Gave him some coffee and ice at night. Settled down on bed, call light on reached no further needs at this time.
--- NOTE | 2019-12-18 06:54 | NUR ---
Report given to BILL James.
[2019-12-18 07:02] LABS: BASO # 0.1 (0.0-0.2); BASO % 0.5 % (0.0-2.0); EOS # 0.1 (0.0-0.7); EOS % 0.5 % (0-4.0); GRAN # 6.5 (1.4-6.5); LYMPH % 20.4 % (20.0-51.0); MEAN CELL VOLUME 86 fl (80.0-100.0); MEAN CORPUSCULAR HGB CONC 33 g/dl (33.0-37.0); MONO % 10.1 % (1.7-9.3); PLATELET COUNT 366 K/mm3 (130-400); RED BLOOD COUNT 3.01 M/mm3 (4.20-5.60); REDCELL DISTRIBUTION WIDTH-CV 14.1 % (11.5-14.5)
[2019-12-18 07:06] LABS: HEMATOCRIT 25.9 % (42.0-52.0); HEMOGLOBIN 8.5 g/dl (13.5-18.0); MEAN CORPUSCULAR HEMOGLOBIN 28 pg (27.0-31.0)
[2019-12-18 07:14] LABS: CALCIUM 8.9 mg/dL (8.4-10.2); CREATININE, serum 2.49 (0.66-1.25); INR 1.7 (0.8-3.0); POTASSIUM 4.8 mmol/L (3.4-5.0); PROTHROMBIN TIME 18.7 SECONDS (9.7-12.8)
--- NOTE | 2019-12-18 09:14 | NUR ---
Assessment completed and documented. Amputations of right middle finger, left big toe, and RLE. Bowel sounds audible all quadrants, abdomen firm to palpation. 1+ edema noted LLE, pt reports this is baseline. Pt reports burning with urination, denies any other urinary issues. PVR bladder scan completed, 22 ml residual detected. No other significant findings noted upon assessment. IV to left AC intact and flushes easily. Pt denies pain or any other concerns at this time. Will continue to monitor. Call light within reach.
--- NOTE | 2019-12-18 11:40 | NUR ---
First visit from the furnace operator and tender. No needs right now.
--- NOTE | 2019-12-18 18:50 | NUR ---
PT HAD NO SIGNIFICANT CHANGES THIS SHIFT. PT HAS DENIED PAIN THROUGHOUT SHIFT. RENAL BIOPSY SCHEDULED FOR 12/20/19.
[2019-12-19] VITALS (8 sets, daily range): BP systolic 139–161; BP diastolic 68–81; PULSE 86–92; TEMP 97.4–98.1
--- NOTE | 2019-12-19 00:15 | NUR ---
Pt assessment completed and charted, alert, oriented, roomair. Meds provided as per MAR, tolerated well. No N/V/D, tingling, numbness, pain, SOB as per pt. I/V flushed without complication. Pt settled down on bed, call light on reach, no further needs at this time.
--- NOTE | 2019-12-19 07:10 | NUR ---
Report with BILL Vincent and BILL Guaman. Pt sitting up in bed, denies pain, requesting coffee. Call light in reach.
--- NOTE | 2019-12-19 07:15 | NUR ---
Report given to BILL Martinez
--- NOTE | 2019-12-19 07:23 | NUR ---
Pt had an uneventful night, slept through out the night. No further needs at this time.
--- NOTE | 2019-12-19 08:00 | NUR ---
Assessment complete. Pt sitting up in bed for breakfast, A&O x 4. Physical assessment unremarkable. Pt denies pain at this time, reports slight tenderness with cough but much improved from previous. Saline lock IV to left AC without s/s of complications. No further needs reported. Call light in reach.
[2019-12-19 10:59] LABS: PROTHROMBIN TIME 22.5 SECONDS (9.7-12.8)
[2019-12-19 11:08] LABS: CALCIUM 8.9 mg/dL (8.4-10.2); CREATININE, serum 2.36 (0.66-1.25); POTASSIUM 5.1 mmol/L (3.4-5.0)
[2019-12-19 11:11] LABS: BASO # 0.1 (0.0-0.2); EOS # 0.2 (0.0-0.7); EOS % 1.9 % (0-4.0); GRAN # 6.5 (1.4-6.5); GRAN % 72.2 % (42.2-75.2); LYMPH # 1.3 (1.2-3.4); LYMPH % 14.8 % (20.0-51.0); MEAN CELL VOLUME 87 fl (80.0-100.0); MEAN CORPUSCULAR HGB CONC 33 g/dl (33.0-37.0); MEAN PLATELET VOLUME 8.8 fl (7.4-10.4); MONO # 0.8 (0.1-0.6); MONO % 9.3 % (1.7-9.3); PLATELET COUNT 378 K/mm3 (130-400); RED BLOOD COUNT 3.13 M/mm3 (4.20-5.60)
[2019-12-19 11:34] LABS: HEMATOCRIT 27.2 % (42.0-52.0); HEMOGLOBIN 8.9 g/dl (13.5-18.0); MEAN CORPUSCULAR HEMOGLOBIN 28 pg (27.0-31.0)
--- NOTE | 2019-12-19 19:08 | NUR ---
Report with BILL Vincent and BILL Guaman. Pt sitting up in bed, done with supper, denies needs at this time. Call light in reach.
--- NOTE | 2019-12-19 21:00 | NUR ---
Pt assessment completed and charted, alert, oriented, roomair, independent. Meds provided as per MAR, tolerated well. Systolic Blood pressure went upto 140s after scheduled toprolol, so provided hydralazine as PRN meds. I/V flushed without complications. No N/V/D, tingling, numbness, pain, SOB as per pt. Settled down on his bed, call light on reach. No further needs at this time.
[2019-12-20] VITALS (20 sets, daily range): BP systolic 135–161; BP diastolic 57–97; PULSE 82–95; TEMP 97.7–98.4
[2019-12-20 06:07] LABS: BASO # 0.1 (0.0-0.2); BASO % 0.8 % (0.0-2.0); EOS # 0.1 (0.0-0.7); EOS % 1.4 % (0-4.0); GRAN # 5.1 (1.4-6.5); GRAN % 60.1 % (42.2-75.2); LYMPH # 2.2 (1.2-3.4); LYMPH % 25.8 % (20.0-51.0); MEAN CELL VOLUME 87 fl (80.0-100.0); MEAN CORPUSCULAR HGB CONC 33 g/dl (33.0-37.0); MEAN PLATELET VOLUME 8.7 fl (7.4-10.4); MONO % 11.1 % (1.7-9.3); PLATELET COUNT 374 K/mm3 (130-400); RED BLOOD COUNT 3.07 M/mm3 (4.20-5.60); REDCELL DISTRIBUTION WIDTH-CV 13.9 % (11.5-14.5)
--- NOTE | 2019-12-20 06:10 | NUR ---
Pt had an uneventful night, slept through out the night. Changed in gown for the procedure. No further needs at this time.
[2019-12-20 06:11] LABS: HEMATOCRIT 26.8 % (42.0-52.0); HEMOGLOBIN 8.8 g/dl (13.5-18.0); MEAN CORPUSCULAR HEMOGLOBIN 29 pg (27.0-31.0)
[2019-12-20 06:12] LABS: CALCIUM 8.9 mg/dL (8.4-10.2); CREATININE, serum 2.37 (0.66-1.25); POTASSIUM 4.6 mmol/L (3.4-5.0)
[2019-12-20 06:15] LABS: INR 1.2 (0.8-3.0); PROTHROMBIN TIME 13.4 SECONDS (9.7-12.8)
[2019-12-20 06:18] LABS: PARTIAL THROMBOPLASTIN TIME 35.8 SECONDS (26.0-37.0)
--- NOTE | 2019-12-20 07:04 | NUR ---
Report given to BILL Christianson.
--- NOTE | 2019-12-20 08:50 | NUR ---
PT WAS BROUGHT DOWN IN HIS BED BY STAFF. PT WAS TRANSFERED TO BED WITH ASSIST. MONITORING EQUIPMENT PLACED. IMAGES TAKEN AND SENT.
--- NOTE | 2019-12-20 08:53 | NUR ---
Patient is alert and oriented. he comfirmed Dr Kern explained why he is getting Renal Biopsy and the indication. Consent signed by patient. BP at 0730 was 151/79. 25mg Hydralizine, PRN was administered. 30mins later Vitals was 138/57. Blood sugar this am is 160. insulin novolg 10units, scheduled, 4units sliding scale and levemir 22units was not given, Patient NPO for renal biopsy. Patient was taken for the procedure at this time.
--- NOTE | 2019-12-20 09:04 | NUR ---
Patient educated on Renal Biopsy expectation pre, intra and post procedure. per Dr. Kern Kidney Biopsy Protocol([id number]).
--- NOTE | 2019-12-20 09:34 | NUR ---
Post renal biopsy bp 141/69. incision site is left posterior back, no drainage, 2x2 gauze and tape dressing. pain at 2/10.
--- NOTE | 2019-12-20 14:10 | NUR ---
DANISH met with the patient to follow up. The patient states that he is doing good and that he should be discharging back home with his son tomorrow, 12/20. He states that he is now scheduled to picker his prosthetic on Monday and is looking forward to this. He had no other questions for DANISH. No additional needs at this time.
--- NOTE | 2019-12-20 20:30 | NUR ---
Initial shift assessment done- denies pain, states feels pretty good tonight- requesting some crackers as a snack tonight- states is going home tomorrow, gauze to back dry and intact from kidney biopsy today.
[2019-12-21 00:07] VITALS: BP 132/54; PULSE 85; TEMP 97.4
[2019-12-21 04:47] VITALS: BP 137/69; PULSE 77; TEMP 97.7
--- NOTE | 2019-12-21 05:07 | NUR ---
Quiet night-- no requests. VSS
[2019-12-21 06:55] LABS: BASO # 0.1 (0.0-0.2); BASO % 0.9 % (0.0-2.0); EOS # 0.4 (0.0-0.7); EOS % 4.4 % (0-4.0); GRAN # 5.2 (1.4-6.5); GRAN % 59.3 % (42.2-75.2); LYMPH # 2.2 (1.2-3.4); LYMPH % 24.9 % (20.0-51.0); MEAN CELL VOLUME 87 fl (80.0-100.0); MEAN CORPUSCULAR HGB CONC 33 g/dl (33.0-37.0); MEAN PLATELET VOLUME 8.8 fl (7.4-10.4); MONO # 0.9 (0.1-0.6); MONO % 9.8 % (1.7-9.3); PLATELET COUNT 408 K/mm3 (130-400); RED BLOOD COUNT 3.26 M/mm3 (4.20-5.60); REDCELL DISTRIBUTION WIDTH-CV 13.6 % (11.5-14.5)
[2019-12-21 07:10] LABS: CALCIUM 8.7 mg/dL (8.4-10.2); CREATININE, serum 2.29 (0.66-1.25); POTASSIUM 4.9 mmol/L (3.4-5.0)
[2019-12-21 07:13] LABS: HEMATOCRIT 28.4 % (42.0-52.0); HEMOGLOBIN 9.4 g/dl (13.5-18.0); MEAN CORPUSCULAR HEMOGLOBIN 29 pg (27.0-31.0)
[2019-12-21 07:22] LABS: PROTHROMBIN TIME 11.5 SECONDS (9.7-12.8)
[2019-12-21 08:04] VITALS: BP 144/73; PULSE 59; TEMP 98.3
[2019-12-21] MEDS ORDERED: TOPROL XL 50MG50 MG PO (09:03)
[2019-12-21] MEDS ORDERED: NORVASC 5MG5 MG/TAB PO (09:03)
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
== END 2019-12-21 10:30 | disposition home or self-care (01) | DRG 189 ==
LOC: COL.ER 22:28 → MEDICAL 12-13 00:07
PROVIDERS: Emergency Medicine; Internal Medicine; Internal Medicine Nephrology; Physician Assistant; Urology; ADMIT Student in an Organized Health Care Education/Training Program
PROC: 0TJB8ZZ Inspection of Bladder, Via Natural or Artificial Opening Endoscopic (ICD-10-PCS; principal; 2019-12-17 14:45)
PROC: 0TB13ZX Excision of Left Kidney, Percutaneous Approach, Diagnostic (ICD-10-PCS; 2019-12-20)
DX: J96.01 Acute respiratory failure with hypoxia (principal); N17.9 Acute kidney failure, unspecified; J98.11 Atelectasis; J44.9 Chronic obstructive pulmonary disease, unspecified; N18.3 Chronic kidney disease, stage 3 (moderate); E11.22 Type 2 diabetes mellitus with diabetic chronic kidney disease; D63.1 Anemia in chronic kidney disease; E78.5 Hyperlipidemia, unspecified; R31.21 Asymptomatic microscopic hematuria; E66.9 Obesity, unspecified; I12.9 Hypertensive chronic kidney disease with stage 1 through stage 4 chronic kidney disease, or unspecified chronic kidney disease; E11.21 Type 2 diabetes mellitus with diabetic nephropathy; T50.2X5A Adverse effect of carbonic-anhydrase inhibitors, benzothiadiazides and other diuretics, initial encounter; Z68.36 Body mass index [BMI] 36.0-36.9, adult; Z87.891 Personal history of nicotine dependence; Z89.611 Acquired absence of right leg above knee; Z86.711 Personal history of pulmonary embolism; Z86.718 Personal history of other venous thrombosis and embolism; Z79.01 Long term (current) use of anticoagulants; Z79.4 Long term (current) use of insulin
CPT/HCPCS: 99222-AI; 99231-AI; 99232-AI; 99233-AI; 99239; A9284; J1815; J1940; J7512

== ENCOUNTER → 2019-12-27 | Outpatient (CLI) | payer MEDICAID ==
[~2019-12-27] MED LIST changes: +ASPIRIN 81M81 MG/TA2 PO; +GLUCOPHAGE1000 MG PO; +KAPSPARGO SPRIN25 MG PO; +LIPITOR 40MG TA40 MG PO; +NORVASC 5MG5 MG/TAB PO; +TOPROL XL 50MG50 MG PO
== END ==
LOC: ZCOL.LAB 13:17
DX: N17.9 Acute kidney failure, unspecified (principal); N18.3 Chronic kidney disease, stage 3 (moderate)

== ENCOUNTER → 2020-02-07 | Outpatient (CLI) | payer MEDICAID | LOC: COL.VAS 13:50 | DX: N18.4 Chronic kidney disease, stage 4 (severe) (principal) ==

== ENCOUNTER 2021-02-18 11:48 | Inpatient (IN) | payer MEDICARE, MEDICAID ==
[2021-02-18] VITALS (8 sets, daily range): BP systolic 119–140; BP diastolic 51–64; PULSE 71–102; TEMP 97.9–98.4
[~2021-02-18] VITALS: Ht 182.9 cm; Wt 111.0 kg
--- NOTE | 2021-02-18 12:30 | NUR ---
Patient to room 313 from [facility]. Patient A&Ox4. IV CDI, fluids by gravity. Reyes intact, yellow, clear. Left above the knee amputation, prosthesis off and in the room. Nurse oriented the patient to location, room and call. No further needs expressed. Call light within reach
[2021-02-18] MEDS ORDERED: ROCALTROL0.5 MCG (12:38)
[2021-02-18 13:47] LABS: BASO % 0.5 % (0.0-2.0); EOS # 0.1 (0.0-0.7); EOS % 1.5 % (0-4.0); GRAN # 5.9 (1.4-6.5); GRAN % 68.9 % (42.2-75.2); LYMPH # 1.7 (1.2-3.4); LYMPH % 19.8 % (20.0-51.0); MEAN CELL VOLUME 88 fl (80.0-100.0); MEAN CORPUSCULAR HGB CONC 34 g/dl (33.0-37.0); MEAN PLATELET VOLUME 8.9 fl (7.4-10.4); MONO # 0.8 (0.1-0.6); MONO % 8.7 % (1.7-9.3); PLATELET COUNT 367 K/mm3 (130-400); RED BLOOD COUNT 2.23 M/mm3 (4.20-5.60); REDCELL DISTRIBUTION WIDTH-CV 13.6 % (11.5-14.5)
[2021-02-18 13:51] LABS: INR 3.7 (0.8-3.0); PROTHROMBIN TIME 41.7 SECONDS (9.7-12.8)
[2021-02-18] MEDS ORDERED: ENTRESTO 24 MG1 EACH PO (13:53)
[2021-02-18 13:55] LABS: ALBUMIN 3.3 gm/dL (3.5-5.0); BILIRUBIN,TOTAL 0.2 mg/dL (0.0-1.0); CALCIUM 7.9 mg/dL (8.4-10.2); CREATININE, serum 3.45 (0.66-1.25); POTASSIUM 4.6 mmol/L (3.4-5.0); TOTAL PROTEIN 6.5 gm/dL (6.4-8.2)
[2021-02-18 13:57] LABS: HEMATOCRIT 19.6 % (42.0-52.0); HEMOGLOBIN 6.6 g/dl (13.5-18.0); MEAN CORPUSCULAR HEMOGLOBIN 30 pg (27.0-31.0)
[2021-02-18] MEDS ORDERED: PROVENTIL0.09 MG/A1 (14:00)
[2021-02-18] MEDS ORDERED: COREG 6.256.25 MG/TA (14:15)
--- NOTE | 2021-02-18 17:16 | NUR ---
Blood transfusion started. IV CDI. VSS. Patient tolerating well.. VS monitored. Call light within reach
--- NOTE | 2021-02-18 17:43 | NUR ---
Blood transfusion started, patient tolerating well. A&Ox4. VSS. IV CDI. Reyes intact, clear yellow. Denies pain and discomfort. No further needs expressed. Call light within reach
[2021-02-19] VITALS (7 sets, daily range): BP systolic 128–146; BP diastolic 59–69; PULSE 88–104; TEMP 97.8–98.8
--- NOTE | 2021-02-19 06:38 | NUR ---
PT RECEIEVED 1 UNIT PRBC THIS SHIFT. TOLERATED TRANSFUSION WELL WITH NO S/S OF REACTION. REVIEWED HOME MED WITH DR. LANGLEY AND TORB TO RESTART PER DR. LONG PATENT AND DRAINING WITH ADEQUATE OUTPUT. CALL LIGHT WITHIN REACH.
[2021-02-19 08:01] LABS: BASO # 0.1 (0.0-0.2); BASO % 0.7 % (0.0-2.0); EOS # 0.2 (0.0-0.7); EOS % 2.3 % (0-4.0); GRAN # 6.5 (1.4-6.5); GRAN % 78.6 % (42.2-75.2); LYMPH # 0.9 (1.2-3.4); LYMPH % 10.7 % (20.0-51.0); MEAN CELL VOLUME 89 fl (80.0-100.0); MEAN CORPUSCULAR HGB CONC 33 g/dl (33.0-37.0); MEAN PLATELET VOLUME 8.9 fl (7.4-10.4); MONO # 0.6 (0.1-0.6); MONO % 7.1 % (1.7-9.3); RED BLOOD COUNT 2.64 M/mm3 (4.20-5.60); REDCELL DISTRIBUTION WIDTH-CV 14.1 % (11.5-14.5)
[2021-02-19 08:04] LABS: HEMATOCRIT 23.6 % (42.0-52.0); HEMOGLOBIN 7.7 g/dl (13.5-18.0); MEAN CORPUSCULAR HEMOGLOBIN 29 pg (27.0-31.0); PLATELET COUNT 265 K/mm3 (130-400)
--- NOTE | 2021-02-19 08:12 | NUR ---
Patient resting in bed upon entering the room. Does not have any complaints this morning. Patient has a prosthetic leg that is currently charging.
[2021-02-19 08:13] LABS: CALCIUM 7.9 mg/dL (8.4-10.2); CREATININE, serum 2.75 (0.66-1.25); PHOSPHOROUS 4.1 mg/dL (2.5-4.5); POTASSIUM 4.2 mmol/L (3.4-5.0)
[2021-02-19 09:38] LABS: INR 2.5 (0.8-3.0)
--- NOTE | 2021-02-19 09:57 | NUR ---
SW met with the patient to discuss discharge plan. The patient lives alone in [place]. He reports independence with ADLs and has a walker, wheelchair, home oxygen, and a CPAP from [employer]. The patient's PCP is Dr. Jas Herrera and he receives his medications from [facility] in . He reports no difficulties obtaining his meds. The patient's DPOA-HC is in EMR and it designates his daughter, Jennifer Reddy (ph#[phone]), and then his son, Zion Noland (ph#[phone]), as the alternate. They both live in . The patient plans to return home upon discharge. SW discussed home health services. The patient reports that he is not interested and does not feel like he needs home health at this time. SW to follow as needed. *Discharge plan: home*
--- NOTE | 2021-02-19 10:30 | NUR ---
Initial visit; Patient thanked Biofuels Production Technician for looking in on him and offering God's blessings.
--- NOTE | 2021-02-19 13:58 | NUR ---
Patient has done well today and has not had any complaints. Dr. Kern saw that patient and decided to discharge the patient. This RN will DC the patient's hamlin. Patient's daughter will be picking him up.
--- NOTE | 2021-02-19 14:07 | NUR ---
Primary nurse was assisting with [id number] patient care by [facility] ADN student Mary Kay Gustafson and [facility] ADM instructor Piedad Hansen MSN, RN
--- NOTE | 2021-02-19 14:49 | NUR ---
Reyes discontinued. Patient discharged, escorted out via wheelchair by this RN.
== END 2021-02-19 14:30 | disposition home or self-care (01) | DRG 641 ==
LOC: MEDICAL 11:48
PROVIDERS: ADMIT Internal Medicine Nephrology
DX: E87.5 Hyperkalemia (principal); N17.9 Acute kidney failure, unspecified; N18.4 Chronic kidney disease, stage 4 (severe); E11.21 Type 2 diabetes mellitus with diabetic nephropathy; D63.1 Anemia in chronic kidney disease; R04.0 Epistaxis; E11.22 Type 2 diabetes mellitus with diabetic chronic kidney disease; E66.01 Morbid (severe) obesity due to excess calories; E78.5 Hyperlipidemia, unspecified; Z86.718 Personal history of other venous thrombosis and embolism; Z86.711 Personal history of pulmonary embolism; Z89.422 Acquired absence of other left toe(s); Z89.021 Acquired absence of right finger(s)
CPT/HCPCS: J1815; P9016

== ENCOUNTER 2021-05-25 07:53 | Emergency (ER) | payer MEDICARE, MEDICAID ==
[~2021-05-25] VITALS: Ht 182.9 cm; Wt 109.1 kg
[~2021-05-25 07:53] MED LIST changes: +COREG 6.256.25 MG/TA; +ENTRESTO 24 MG1 EACH PO; +PROVENTIL0.09 MG/A1; +ROCALTROL0.5 MCG
[2021-05-25 08:08] VITALS: TEMP 98.6
[2021-05-25 08:25] LABS: BASO % 0.3 % (0.0-2.0); EOS # 0.3 K/mm3 (0.0-0.7); EOS % 3.8 % (0.0-4.0); GRAN # 5.9 K/mm3 (1.4-6.5); GRAN % 76.2 % (42.2-75.2); HEMOGLOBIN 10.8 g/dl (13.5-18.0); LYMPH # 0.8 K/mm3 (1.2-3.4); LYMPH % 10.8 % (20.0-51.0); MEAN CELL VOLUME 84 fl (80.0-100.0); MEAN CORPUSCULAR HEMOGLOBIN 29 pg (27-31); MEAN CORPUSCULAR HGB CONC 34 g/dl (33.0-37.0); MEAN PLATELET VOLUME 8.7 fl (7.4-10.4); MONO # 0.7 K/mm3 (0.1-0.6); MONO % 8.5 % (1.7-9.3); PLATELET COUNT 246 K/mm3 (130-400); RED BLOOD COUNT 3.75 M/mm3 (4.20-5.60)
[2021-05-25 08:33] LABS: HEMATOCRIT 31.5 % (42.0-52.0)
[2021-05-25 08:46] LABS: ALBUMIN 3.3 gm/dL (3.4-4.8); BILIRUBIN,TOTAL 0.2 mg/dL (0.2-1.2); CALCIUM 8.5 mg/dL (8.4-10.2); CREATININE, serum 2.5 mg/dL (0.72-1.25); POTASSIUM 4.5 mmol/L (3.5-4.5); TOTAL PROTEIN 7.3 gm/dL (6.2-8.1)
[2021-05-25 08:51] LABS: PROTHROMBIN TIME 11.3 SECONDS (9.7-12.8)
[2021-05-25 08:53] LABS: TROPONIN-I 0.013 ng/mL (0.00-0.033)
[2021-05-25 08:54] LABS: PARTIAL THROMBOPLASTIN TIME 36.1 SECONDS (26.0-37.0)
[2021-05-25 12:14] VITALS: BP 131/77; PULSE 92
== END 2021-05-25 12:20 | disposition home or self-care (01) ==
LOC: COL.ER 07:53
PROVIDERS: Emergency Medicine
DX: U07.1 COVID-19 (principal); J12.82 Pneumonia due to coronavirus disease 2019; E78.5 Hyperlipidemia, unspecified; E66.01 Morbid (severe) obesity due to excess calories; I12.9 Hypertensive chronic kidney disease with stage 1 through stage 4 chronic kidney disease, or unspecified chronic kidney disease; E11.22 Type 2 diabetes mellitus with diabetic chronic kidney disease; N18.30 Chronic kidney disease, stage 3 unspecified; F17.210 Nicotine dependence, cigarettes, uncomplicated; Z79.899 Other long term (current) drug therapy; Z79.4 Long term (current) use of insulin
CPT/HCPCS: J7030

== ENCOUNTER → 2022-01-03 | Outpatient (CLI) | payer MEDICARE, MEDICAID | LOC: COL.RAD 10:41 | DX: K57.30 Diverticulosis of large intestine without perforation or abscess without bleeding (principal) ==

== ENCOUNTER 2022-01-22 17:28 | Emergency (ER) | payer MEDICARE, MEDICAID ==
[~2022-01-22] VITALS: Ht 182.9 cm; Wt 110.9 kg
[2022-01-22 17:33] VITALS: TEMP 98
[2022-01-22 17:57] LABS: BASO # 0.1 K/mm3 (0.0-0.2); BASO % 0.8 % (0.0-2.0); EOS # 0.4 K/mm3 (0.0-0.7); EOS % 4.2 % (0.0-4.0); GRAN # 5.9 K/mm3 (1.4-6.5); GRAN % 65.7 % (42.2-75.2); HEMOGLOBIN 11.4 g/dl (13.5-18.0); LYMPH # 1.8 K/mm3 (1.2-3.4); MEAN CELL VOLUME 89 fl (80.0-100.0); MEAN CORPUSCULAR HEMOGLOBIN 30 pg (27-31); MEAN CORPUSCULAR HGB CONC 33 g/dl (33.0-37.0); MEAN PLATELET VOLUME 8.4 fl (7.4-10.4); MONO # 0.8 K/mm3 (0.1-0.6); MONO % 9.1 % (1.7-9.3); PLATELET COUNT 289 K/mm3 (130-400); RED BLOOD COUNT 3.82 M/mm3 (4.20-5.60); REDCELL DISTRIBUTION WIDTH-CV 13.2 % (11.5-14.5)
[2022-01-22 17:58] LABS: HEMATOCRIT 34.1 % (42.0-52.0)
[2022-01-22 18:08] LABS: PROTHROMBIN TIME 11.6 SECONDS (9.7-12.8)
[2022-01-22 18:10] LABS: PARTIAL THROMBOPLASTIN TIME 34.6 SECONDS (26.0-37.0)
[2022-01-22 18:17] LABS: ALBUMIN 3.5 gm/dL (3.4-4.8); BILIRUBIN,TOTAL 0.3 mg/dL (0.2-1.2); CALCIUM 9.3 mg/dL (8.4-10.2); CREATININE, serum 2.35 mg/dL (0.72-1.25); POTASSIUM 4.3 mmol/L (3.5-4.5); TOTAL PROTEIN 7.6 gm/dL (6.2-8.1)
[2022-01-22 18:23] LABS: TROPONIN-I 0.01 ng/mL (0.00-0.033)
[2022-01-22 20:23] VITALS: BP 165/78; PULSE 86
== END 2022-01-22 20:23 | disposition home or self-care (01) ==
LOC: COL.ER 17:28
PROVIDERS: Emergency Medicine
DX: K92.1 Melena (principal); R10.32 Left lower quadrant pain; R53.1 Weakness; R06.00 Dyspnea, unspecified; E66.01 Morbid (severe) obesity due to excess calories; Z20.822 Contact with and (suspected) exposure to COVID-19; Z28.310 Unvaccinated for COVID-19